=== PATIENT | female | born 1990 | race Caucasian/White ===

== ENCOUNTER 2023-09-24 07:37 | Outpatient (RCR) | payer BC, SELFPAY ==
[2023-09-26 05:07] LABS: Beta-2 Glycoprotein I Ab, IgA <9 (0-25); Beta-2 Glycoprotein I Ab, IgG <9 (0-20); Beta-2 Glycoprotein I Ab, IgM <9 (0-32)
== END 2023-09-29 23:59 | disposition home or self-care (01) ==
LOC: HEMC 07:37
PROVIDERS: PCP Family Medicine; Visit Provider Internal Medicine Hematology & Oncology
DX: D68.62 Lupus anticoagulant syndrome (principal); Z15.09 Genetic susceptibility to other malignant neoplasm
CPT/HCPCS: 36415; 85613; 85670; 85705; 85732; 86146; 86147; G0463

== ENCOUNTER 2023-10-15 07:45 | Outpatient (RCR) | payer BC, SELFPAY | END 2023-10-30 23:59 | disposition home or self-care (01) | LOC: HEMC 07:45 | PROVIDERS: PCP Family Medicine; Visit Provider Internal Medicine Hematology & Oncology | DX: D68.62 Lupus anticoagulant syndrome (principal); Z15.09 Genetic susceptibility to other malignant neoplasm; Z80.0 Family history of malignant neoplasm of digestive organs; Z80.42 Family history of malignant neoplasm of prostate | CPT/HCPCS: G0463 ==

== ENCOUNTER 2024-02-25 14:34 | Outpatient (OUT) | payer BC, SELFPAY ==
--- NOTE | 2024-02-25 14:36 | XR_ITS ---
The [address] [address] Patient Name: JAMES VILLEGAS MRN: [id number] date: 1990 Sex: F Assigned Patient Location: [facility] Current Patient Location: Accession/Order Number: [id number] Exam Date: 02/25/2024 14:38 Report Date: 02/29/2024 08:55 At the request of: MILTON BURT Procedure: XR foot RT min 3V PROCEDURE: XR foot RT min 3V HISTORY: Right Foot Pain ; pain since injury 10 years ago; first metatarsophalangeal joint pain COMPARISON: None. FINDINGS: BONES:Mild degenerative changes the first metatarsophalangeal joint. Tiny ossification medial to the first metatarsophalangeal joint favoring sequela of remote injury. SOFT TISSUES:No visible soft tissue swelling. EFFUSION:None visible. OTHER: Negative. XR/XR foot RT min 3V IMPRESSION: 1. No acute bone abnormality. 2. Mild degenerative changes of the first metatarsophalangeal joint. Electronically authenticated by: CHICHI FRANCO Date: 02/29/2024 08:55
--- OUTSIDE RECORDS SUMMARY | 2024-02-25 14:55 | XMS_ITS | CCD ---
Author Organization [facility] Care Team Providers Care Cafeteria Director Name Role Phone FELIPE LOWRY Admitting Unavailable FELIPE LOWRY Attending Unavailable FELIPE LOWRY Consulting Unavailable SEAN, DR ASHTON Primary Care Unavailable BARBARA, DR AREVALO Consulting Unavailable BARBARA, DR AREVALO Attending Unavailable BARBARA, DR AREVALO Admitting Unavailable WEST, DR IRINA Quesada Consulting Unavailable Unavailable Primary Care Provider UnavailIrina Jacobson Irina Jimenez DO Primary Care Provider Unavail able YAMILEX ACEVEDO Admitting Unavailable YAMILEX ACEVEDO Attending Unavailable IRINA JIMENEZ Primary Care Unavailable Unavailable Primary Care Provider UnavailFABI Pimentel Attending Unavailable Unavailable Primary Care Provider Unavailabl e Allergies Allergy Classification Reported Allergen(s) Allergy Type Date of Onset Reaction(s) Facility (1 source) Cephalexin Drug Allergy chest tightness/ possible? see OV note 10-13-22 Wow! Stuff Other Medications Current Medications Medication Drug Class(es) Dates Sig (Normalized) Sig (Original) Calcium (4 sources) Phosphate Binder, Calcium Calcium Active citalopram 40 mg oral tablet (15 sources) Serotonin Reuptake Inhibitor Start: 12-05-2023 citalopram (CELEXA) 40 mg tablet take 1 tablet daily 90 tablet 3 12/05/2023 Active Start: 10-16-2023 Citalopram Act quang MG PO October 16, 2023 12:00am Start: 09-11-2022 End: 12-05-2023 citalopram (CELEXA) 40 mg ta blet take 1 tablet daily 90 tablet 3 12/10/2022 12/05/2023 Discontinued Start: 03-20-2021 citalopram (CE ANDERSON) 40 mg tablet TAKE 1 TABLET DAILY 90 tablet 1 03/14/2022 Active Comment on above: TAKE 1 TABLET DAILY drospirenone / Ethinyl Estradiol (17 sources) Progestin, Estrogen Start: 11-28-2023 take 1 tablet by mouth once daily, then take 3 tablets by mouth once Drospirenone-Ethin yl Estradiol (CHER) 3-0.03 mg per tablet Take 1 tablet by mouth once daily. 84 tablet 3 11/28/2023 Active Start: 10-22-2023 End: 11-28-2023 CHER 3-0.03 mg per tablet t jessica 1 tablet daily 84 tablet 10/22/2023 11/28/2023 Discontinued Start: 10-22-2023 CHER 3-0.03 m g per tablet take 1 tablet daily 84 tablet 0 10/22/2023 Active Start: 09-21-2022 End: 10-22-2023 take 1 tablet by mouth once daily, then take 3 tablets by mouth once Drospirenone-Ethinyl Estradiol (CHER) 3-0.03 mg per tablet Take 1 tablet by mouth once daily. 84 tablet 3 09/21/2022 10/22/2023 Discontinued Start: 09-21-2022 take 1 tablet by maxi th once daily, then take 3 tablets by mouth once Drospirenone-Ethinyl Estradiol (CHER) 3-0.03 mg per tablet Take 1 tablet by mouth once daily. 84 tablet 3 09/21/2022 Active Start: 09-19-2022 End: 09-21-2022 Drospirenone-Ethinyl Estradi ol (CHER) 3-0.03 mg per tablet TAKE 1 TABLET DAILY 84 tablet 0 09/19/2022 09/21/2022 Discontinued Start: 06-27-2022 CHER 3-0.03 m g per tablet TAKE 1 TABLET DAILY 84 tablet 0 06/27/2022 Active Start: 07-26-2021 End: 06-27-2022 take 1 tablet by mouth once daily, then take 3 tablets by mouth once Drospirenone-Ethinyl Estradiol (CHER) 3-0.03 mg per tablet Take 1 tablet by mouth once daily. 84 tablet 3 07/26/2021 06/27/2022 Discontinued Start: 07-26-2021 take 1 tablet by maxi th once daily, then take 3 tablets by mouth once Drospirenone-Ethinyl Estradiol (CHER) 3-0.03 mg per tablet Take 1 tablet by mouth once daily. 84 tablet 3 07/26/2021 Active Start: 05-25-2021 End: 07-26-2021 CHER 3-0.03 mg per tablet T JESSICA 1 TABLET DAILY 84 tablet 0 05/25/2021 07/26/2021 Discontinued take 1 tablet by maxi th every twenty-four hours Cher 3-0.03 MG 1 tablet Orally Once a day Active Comment on above: Take 1 tablet by maxi th once daily. TAKE 1 TABLET DAILY predniSONE 20 mg oral tablet (3 sources) Start: 09-28-2021 predniSONE 20 MG take 3 tablets Orally x3 days, then 2 tabs x3 days then 1 tab a day x3 days then take 1/2 tablet x4 days with food or milk for 13 days Aug, Active Completed/Discontinued Medications Medication Drug Class(es) Dates Sig (Normalized) Sig (Original) docusate sodium 100 mg oral capsule (3 sources) End: 09-21-2022 take 1 capsule by mouth twice daily docusate sodium (COLACE) 100 mg capsule Take 100 mg by mouth twice daily. 0 09/21/2022 Discontinued Comment on above: Take 100 mg by mouth twice daily. fludrocortisone acetate 0.1 mg oral tablet (9 sources) Start: 10-16-2023 End: 10-16-2023 Fludrocortisone Discontinued MG PO October 16, 2023 12:00am October 16, 2023 3:29pm Start: 03-02-2021 End: 09-21-2022 take 1 tablet by mouth once daily fludrocortisone (FLORINEF) 0.1 mg tablet Take 1 tablet by mouth once daily. ANNUAL EXAM NEEDED FOR REFILLS 90 tablet 0 03/02/2021 09/21/2022 Discontinued take 1 tablet by maxi th three times weekly Fludrocortisone Acetate 0.1 MG 1 tablet Orally Three times a Week Active Comment on above: Take 1 tablet by maxi th once daily. ANNUAL EXAM NEEDED FOR REFILLS PNV no.95/ferrous fum/folic ac ( ORAL) (3 sources) End: 09-21-2022 take 1 tablet by mouth once daily before mealtime PNV no.95/ferrous fum/folic ac ( ORAL) Take 1 tablet by mouth once daily. 0 09/21/2022 Discontinued take 1 tablet by maxi th once daily before mealtime PNV no.95/ferrous fum/folic ac ( ORAL) Take 1 tablet by mouth once daily. 0 Active Comment on above: Take 1 tablet by maxi th once daily. Problems Active Problems Problem Classification Problem Date Documented Date Episodic/Chronic Anxiety disorders (6 sources) Anxiety; Translations: [Anxiety disorder, unspecified] Chronic Contraceptive and procreative management (2 sources) Oral contraception; Translations: [Encounter for surveillance of contraceptive pills] Episodic Disorders of lipid metabolism (6 sources) Hyperlipidemia; Translations: [Hyperlipidemia, unspecified] Onset: 03-15-2021 Resolved: 03-15-2021 Chronic Epilepsy; convulsions (13 sources) Epilepsy; Translations: [Epilepsy, unspecified, not intractable, without status epilepticus] Onset: 09-01-2018 07-26-2021 Chronic Menstrual disorders (7 sources) Irregular periods; Translations: [Irregular menstruation, unspecified] Onset: 02-13-2018 07-26-2021 Chronic Nonmalignant breast conditions (1 source) Mastodynia; Translations: [Mastodynia] Episodic Other conditions (3 sources) Cardiac arrest of ; Translations: [CARDIAC ARREST OF ] Onset: 07-29-2018 Episodic Other screening for suspected conditions (not mental disorders or infectious disease) (3 sources) Patient encounter status; Translations: [Encounter for other screening for malignant neoplasm of breast] Episodic Other skin disorders (2 sources) Follicular cyst of the skin and subcutaneous tissue, unspecified Onset: 03-15-2021 Resolved: 03-15-2021 Episodic Other skin disorders (2 sources) Sebaceous cyst of skin; Translations: [Sebaceous cyst] Onset: 01-03-2022 Episodic Other skin disorders (1 source) Sebaceous cyst; Translations: [Sebaceous cyst] Onset: 01-03-2022 Episodic Residual codes; unclassified (1 source) Reduced libido; Translations: [Decreased libido] Episodic Syncope (1 source) Syncope and collapse Episodic Thyroid disorders (12 sources) Hypothyroidism; Translations: [Hypothyroidism, unspecified] Onset: 09-01-2018 07-26-2021 Chronic Unclassified (3 sources) COUGH, UNSPECIFIED; Translations: [COUGH, UNSPECIFIED] Onset: 03-18-2021 Unclassified (1 source) CONTACT W/AND (SUSP) EXPOS COVID-19; Translations: [CONTACT W/AND (SUSP) EXPOS COVID-19] Onset: 03-18-2021 Past or Other Problems Problem Classification Problem Date Documented Date Episodic/Chronic Allergic reactions (2 sources) Unspecified contact dermatitis, unspecified cause Onset: 09-28-2021 Resolved: 10-09-2021 Episodic Other complications of (3 sources) History of pre-eclampsia; Translations: [Supervision of with other poor reproductive or obstetric history, unspecified trimester] Onset: 07-30-2019 Resolved: 03-22-2020 03-22-2020 Episodic Other nutritional; endocrine; and metabolic disorders (1 source) Abnormal weight loss Onset: 03-15-2021 Resolved: 03-15-2021 Episodic Residual codes; unclassified (3 sources) History of intrauterine ; Translations: [Personal history of other complications of , childbirth and the puerperium] Onset: 07-30-2019 Resolved: 03-22-2020 03-22-2020 Episodic Unclassified (1 source) COUGH, UNSPECIFIED; Translations: [COUGH, UNSPECIFIED] Onset: 03-14-2021 Unclassified (1 source) Cough R05.9 Onset: 03-15-2021 Resolved: 03-15-2021 Viral infection (3 sources) COVID-19; Translations: [Other specified viral infection] Onset: 10-30-2019 Resolved: 03-22-2020 03-22-2020 Episodic Results Test Name Value Interpretation Reference Range Facility Beta 2 glycoprotein 1 IgA Ab [Units/volume] in Serumon 09-24-2023 Beta 2 glycoprotein 1 IgA Qn (S) <9 0-25 [facility] Comment on above: Result Units: GPI Ig A unitsThe reference interval reflects a 3SD or 99th percentileinterval, which is thought to represent a potentiallyclinically significant result in accordance with theInternational Consensus Statement on the classificationcriteria for definitive antiphospholipid syndrome (APS). JThromb Haem 2006;4:295-306. Beta 2 glycoprotein 1 IgG Ab [Units/volume] in Serumon 09-24-2023 Beta 2 glycoprotein 1 IgG Qn (S) <9 0-20 [facility] Comment on above: Result Units: GPI Ig G unitsThe reference interval reflects a 3SD or 99th percentileinterval, which is thought to represent a potentiallyclinically significant result in accordance with theInternational Consensus Statement on the classificationcriteria for definitive antiphospholipid syndrome (APS). JThromb Haem 2006;4:295-306. Beta 2 glycoprotein 1 IgM Ab [Units/volume] in Serumon 09-24-2023 Beta 2 glycoprotein 1 IgM Qn (S) <9 0-32 [facility] Comment on above: Result Units: GPI Ig M unitsThe reference interval reflects a 3SD or 99th percentileinterval, which is thought to represent a potentiallyclinically significant result in accordance with theInternational Consensus Statement on the classificationcriteria for definitive antiphospholipid syndrome (APS). JThromb Haem 2006;4:295-306.Performed at: [email or web address] [id number] Director: Guera Patel MD, Phone: [phone] No Panel Informationon 09-23 Miscellaneous Test COMMENT . [facility] Comment on above: Test Ordered: [id number] Lupus Anticoagulant CompDilute Prothrombin Time(dPT) 32.0 sec Reference Range: 0.0-47.6dPT Confirm Ratio 1.21 Ratio BN Reference Range: 0.00-1.34Thrombin Time 20.0 sec BN Reference Range: 0.0-23.0PTT-LA 35.5 sec Reference Range: 0.0-43.5dRVVT 32.7 sec Reference Range: 0.0-47.0Lupus Reflex Interpretation Comment: Reference Range: .No lupus anticoagulant was detected.Performed at: [email or web address] [id number] Director: Guera Patel MD, Phone: [phone] at: [facility] [employer] [id number] Director: Corky Samuels PhD, Phone: [phone] CNOVon 09-21-2022 CNOV Office Visit ([facility] ) -- MARIOJOHANNY BOYCE ([id number]) 1990 F Date Time Provider Department 09/21/22 9:50 AM FABI ELAINE During your visit today, we recorded the following information about you: Blood pressure Weight Height Last Period 124/78 77.1 kg 1.702 m 08/25/22 Jennifer Hardy Ma 09/21/2022 9:55 AM Signed Commodity Manager offered: Patient declines. Fabi Elaine MD 09/21/2022 12:54 PM Signed Johanny is a 32 year old who presents for an annual gynecologic exam with complaints. Has had left breast pain for the past 2 months, worse just before her periods. No lump , no nipple discharge. Pain is constant , but worse the week prior to her periods. It is an achy pain all along the lateral wall of breast. No trauma. Menses: cycles every 28 days. Contraception: combined hormonal contraceptives No migraines with aura, HTN, blood clots, stroke hx. HPV vaccine: No Last Pap: 08/03/2019 normal HPV: 08/04/2019 negative History of abnormal pap: No Last mammogram: never Sexually active: Yes, but rarely Patient concerns for STD exposure: No. OB History T2 L2 SAB0 IAB0 Ectopic0 Multiple0 Live Births2 Risk Modeler History LMP: 08/25/2022, Having periods Age at Menarche: 13 Age at First : Age at Menopause: Risk Modeler History Comments: Sexual Activity: Yes; Male Contraception: Pill PAST MEDICAL HISTORY Diagnosis Date Neurocardiogenic syncope have seizures if syncopal Placental abruption depression Thyroid disease PAST SURGICAL HISTORY Procedure Laterality Date SECTION HX 2017,2018, 2019 TONSILLECTOMY AND ADENOIDECTOMY HX FAMILY HISTORY Problem Relation Age of Onset other (bi polar) Mother Colon Cancer Father Prostate Cancer Father Colon Cancer Paternal Grandfather SOCIAL HISTORY Social History Tobacco Use Smoking status: Never Smokeless tobacco: Never Vaping Use Vaping Use: Never used Substance Use Topics Alcohol use: Yes Comment: socially Drug use: Never REVIEW OF SYSTEMS Abdomen: No abdominal pain, nausea, vomiting, diarrhea, or constipation. No bloating, early satiety, indigestion, or increased flatulence. Bladder: No dysuria, gross hematuria, urinary frequency, urinary urgency, or incontinence. Breast: No breast lumps, nipple d/c, overlying skin changes, redness or skin retraction. Complaint of pain in left breast Allergies and current medication updated:Yes EXAM: BP 124/78 Ht 5' 7 (1.70m) Wt 170 lb (77.1kg) LMP 08/25/2022 BMI 26.62 kg/(m2). GENERAL: pleasant, female in no apparent distress HEENT: Normocephalic, atraumatic, mucus membranes moist, and no lesions NECK: Supple, full range of motion, no adenopathy, and thyroid normal DERMATOLOGY: Normal, without lesions, non-icteric, and non-hirsute BREAST: soft, non-tender, symmetric, no dominant mass, normal nipple-areolar complex, no lymphadenopathy, and no nipple discharge CHEST: Normal inspiratory effort ABDOMEN: soft, non-tender, and no masses PELVIC: external genitalia normal, normal Bartholin's glands, urethra, [place]'s glands, no vulvar lesions, no cervical lesions, good vaginal support, physiologic discharge present, normal appearing perineal body and perianal region BIMANUAL: uterus normal size, shape and consistency, no adnexal masses, and non-tender RECTOVAGINAL: deferred. NEURO: alert and oriented x3,exam grossly non-focal EXTREMITIES: normal ASSESSMENT/PLAN: 1) Health maintenance: Pap done with HPV. Nutrition, exercise and routine health maintenance exams reviewed. Calcium/Vitamin D supplementation information provided. 2) Contraception: combined hormonal contraceptives. Contraceptive options reviewed and information provided. 3) STD screening: Declined STD check. 4) Left breast pain- diagnostic imaging ordered 5) Follow up one year or sooner as needed Fabi Elaine MD Referring Provider: SELF [200] Allergies As of Date: 09/21/2022 (No Known Allergies) Date Reviewed: 09/21/2022 Reviewed by: Fabi Elaine MD - Fully Assessed Reason for Visit: Yearly Exam [187] Breast Problem [16] Cmt: Left breast pain on and off for a couple of months --last pap--07/2019--pap and hpv was neg Primary Visit Diagnosis:Encounter for gynecological examination (general) (routine) without abnormal findings [Z01.419] Other Visit Diagnoses:Screening for cervical cancer [Z12.4] Encounter for screening for human papillomavirus (HPV) [Z11.51] Encounter for surveillance of contraceptive pills [Z30.41] Breast pain, left [N64.4] Order(s):PAP TEST [[id number]] Order #: [id number]. #:[id number] RYAN DIAGNOSTIC LEFT [[id number]] Order #: [id number] FUTURE US BREAST LTD LEFT [[id number]] Order #: [id number] FUTURE Drospirenone-Ethinyl Estradiol (CHER) 3-0.03 mg per tabletTake 1 tablet by mouth once daily.Disp: 84 tabletRf (more content not included)... Normal [facility] HPV W/GENOTYPE THIN PREPon 0 09-21-2022 HPV 16 Ag Ql (Unsp spec) Negative Normal Negative for HPV DNA high risk type 16 by PCR [facility] Comment on above: Order Comment: Speci men Type: FLUID SPECIMEN Ordering Facility: [facility] Address: [address] [place] [address] Performed By: #### H PVHRT #### [facility] CLIA [id number] [address] [place] [address] [place] HPV 18 Ag Ql (Unsp spec) Negative Normal Negative for HPV DNA high risk type 18 by PCR [facility] Comment on above: Order Comment: Speci men Type: FLUID SPECIMEN Ordering Facility: [facility] Address: [address] [place] [address] Performed By: #### H PVHRT #### [facility] CLIA [id number] [address] [place] [address] [place] HPV 31+33+35+39+45+51+ 52+56+58+59+66+68 DNA CARIN+probe Ql (Cvx) Negative for HPV DNA high risk types: 31,33,35,39,45,51,52,56,58 ,59,66,68 by PCR. Normal Negative for HPV DNA high risk types: 31,33,35,39,4 5,51,52,56,58 ,59,66,68 by PCR. [facility] Comment on above: Order Comment: Speci men Type: FLUID SPECIMEN Ordering Facility: [facility] Address: [address] [place] [address] Performed By: #### H PVHRT #### [facility] CLIA [id number] [address] [place] [address] [place] PAP TESTon 09-21-2022 CASE REPORT Normal [facility] Comment on above: Order Comment: Speci men Type: FLUID SPECIMEN Ordering Facility: [facility] Address: [address] [place] [address] Result Comment: Gyne cologic Cytology Report Case: [id number] Authorizing Provider: Fabi Elaine MD Collected: 09/21/2022 10:33 AM Ordering Location: Obstetrics/Gynecology Received: 09/21/2022 01:09 PM First Screen: DELVIS Winn, ASCP Specimen: Pap Test, ThinPrep, Cervix Performed By: #### L [id number] #### [facility] CLIA [id number] [address] [place] [address] [place] CLINICAL HISTORY, CYTOLOGY, RESEARCH NURSE Routine Exam Normal [facility] Comment on above: Order Comment: Speci men Type: FLUID SPECIMEN Ordering Facility: [facility] Address: [address] [place] [address] Performed By: #### L [id number] #### [facility] CLIA [id number] [address] [place] [address] [place] CYTOLOGY INTERPRETATION PAP Normal [facility] Comment on above: Order Comment: Speci men Type: FLUID SPECIMEN Ordering Facility: [facility] Address: [address] [place] [address] Result Comment: Nega tive for Intraepithelial lesion or malignancy. Performed By: #### L [id number] #### [facility] CLIA [id number] [address] [id number] [place] FINAL DIAGNOSIS A - Cervix Normal [facility] Comment on above: Order Comment: Speci men Type: FLUID SPECIMEN Ordering Facility: [facility] Address: [address] Result Comment: Sati sfactory for interpretation Negative for Intraepithelial lesion or malignancy. Performed By: #### L [id number] #### [facility] CLIA [id number] [address] STATES OF [facility] Normal [facility] Comment on above: Order Comment: Speci men Type: FLUID SPECIMEN Ordering Facility: [facility] Address: [address] [address] Result Comment: Tech nical component, full stack software engineer screening performed at [facility], [facility] [place] [address] CLIA# [id number] Diagnostic interpretation performed at [facility], [address] [facility] [place] [address] CLIA# [id number] Disc Inspector: Alessio Vincent M.D. Performed By: #### L [id number] #### [facility] CLIA [id number] [address] [place], [place] [id number] [place] HPV REFLEX Auto HPV Normal [facility] Comment on above: Order Comment: Speci men Type: FLUID SPECIMEN Ordering Facility: [facility] Address: [address] Performed By: #### L [id number] #### [facility] CLIA [id number] [address] [place] [address] [place] LMP 08/25/2022 Normal [facility] Comment on above: Order Comment: Speci men Type: FLUID SPECIMEN Ordering Facility: [facility] Address: [address] Performed By: #### L [id number] #### [facility] CLIA [id number] [address] [place] [address] [place] PAP DISCLAIMER COMMENT The Pap Smear is a screening test for cervical cancer. False negative results occur with all screening tests, emphasizing the need for rescreening at recommended intervals, and clinical correlation. Normal [facility] Comment on above: Order Comment: Speci men Type: FLUID SPECIMEN Ordering Facility: [facility] Address: [address] [place] [address] Performed By: #### L [id number] #### [facility] CLIA [id number] [address] [place] [address] [place] PAP VICE PRESIDENT GLOBAL ADVERTISING SALES COMMENT This specimen has be en analyzed by the ThinPrep Imaging System, an automated imaging and review system, which assists the laboratory in evaluating cells on ThinPrep Pap tests. Following automated imaging, selected bermudez from every slide are reviewed by a full stack software engineer. Normal [facility] Comment on above: Order Comment: Speci men Type: FLUID SPECIMEN Ordering Facility: [facility] Address: [address] [place] [address] Performed By: #### L [id number] #### [facility] CLIA [id number] [address] [place] [address] OPERATIVE REPORTon 2 [place] [address] OPERATIVE REPORT PATIENT NAME: JOHANNY VILLEGAS : 1990 MED REC NO: [id number] ROOM: ACCOUNT NO: [id number] ADMIT DATE: 01/03/2022 PROVIDER: Yamilex Acevedo M.D. DATE OF PROCEDURE: 01/03/2022 PREOPERATIVE DIAGNOSIS: Right popliteal cyst. POSTOPERATIVE DIAGNOSIS: Right popliteal cyst. OPERATION PERFORMED: Excision of right popliteal cyst of 3.2 cm with complex closure. ATTENDING SURGEON: Yamilex Acevedo MD PUPIL PERSONNEL WORKER: Palmira Murphy CNP ANESTHESIA: General endotracheal anesthesia. HISTORY OF PRESENT ILLNESS: The patient is a 31-year-old female who presents with the cystic mass located in her right posterior leg just above her popliteal region. This mass has been getting larger causing pain and discomfort and she would like to have excision for diagnostic and therapeutic purposes. All the risks and benefits of the procedures were discussed with the patient. She decided to go ahead with the described procedure. Please note the operating room surgical technologist was utilized for all portions of the procedure including for retraction, extraction and reconstruction. No qualified residents or fellows were available for this surgery. OPERATIVE PROCEDURE: The patient was brought in the operative room, intubated by Anesthesia without any complication, log rolled to the prone decubitus position giving exposure to her right popliteal region. She was given IV antibiotics, then 1% Xylocaine with epinephrine was injected in the field block around this cystic lesion located in her right posterior leg. Then, the area was prepped and draped in the standard surgical fashion. Then, a 15-blade scalpel was used to create an elliptical incision around the punctum around this cystic mass. The total length of the excision measured 3.2 cm at length. Skin grabbed at the margin. Curved scissors were used to dissect the cyst from the surrounding soft tissue and was excised in a full thickness fashion that extended down through the Ava's fascia. Once this was excised, it was sent to the pathology for further study and measured 3.2 cm in length. Then, hemostasis was obtained with electrocautery. Medial and lateral subfascial advancement flaps were dissected with electrocautery. The wound irrigated with antibiotic irrigation and the wound was closed in a complex layered fashion of length 3.2 cm. This was done using 0 Vicryl suture in a simple fashion to reapproximate the Scarp's fashion followed by the deeper subcutaneous tissue dermis followed by 0 Vicryl and 2-0 Vicryl suture to reapproximate the superficial subcutaneous tissue and dermis followed by 3-0 Monocryl suture in running subcuticular fashion to reapproximate the skin. Benzoin and Steri-Strips were applied to the incisions. Sterile dressings were applied including an ELIDIA wrap. The patient was then log rolled in supine position, extubated by Anesthesia without any complication and then transferred in stable condition to the recovery room. There were no complications. Sponge, needle, and instrument counts were correct at the end of the case. ESTIMATED BLOOD LOSS: Less than 1 mL. IV FLUIDS: See anesthesia notes. SPECIMEN: Right popliteal cyst. COMPLICATIONS: There were no complications. YAMILEX ACEVEDO M.D. [id number] Doc#: [id number] CC: Normal [facility] POC UR-QUALon Beta HCG ( test) Ql (U) Negative Negative [facility] Phone: Lot Number [id number] [facility] Phone: Negative QC Pass/Fail Pass [facility] Phone: Positive QC Pass/Fail Pass [facility] Phone: [facility] Phone: CBC With Platelet and Differ entialon 12-29-2021 Basophils (Bld) [#/Vol] 0.0 10*3/uL Normal 0.0-0.2 [facility] Comment on above: Performed By: #### C BCWD #### [facility] [address] [place] [address] Basophils/100 WBC (Bld) 0.5 % Normal [facility] Comment on above: Performed By: #### C BCWD #### [facility] [address] [place] [address] Eosinophils (Bld) [#/Vol] 0.1 10*3/uL Normal 0.0-0.7 [facility] Comment on above: Performed By: #### C BCWD #### [facility] [address] [place] [address] Eosinophils/100 WBC (Bld) 1.1 % Normal [facility] Comment on above: Performed By: #### C BCWD #### [facility] [address] [place] [address] Erythrocyte distribution width (RBC) [Ratio] 12.7 % Normal 11.5-14.5 [facility] Comment on above: Performed By: #### C BCWD #### [facility] [address] [place] [address] Hematocrit (Bld) [Volume fraction] 41.0 % Normal 37.0-47.0 [facility] Comment on above: Performed By: #### C BCWD #### [facility] [address] [place] [address] Hemoglobin (Bld) [Mass/Vol] 13.7 g/dL Normal 12.0-16.0 [facility] Comment on above: Performed By: #### C BCWD #### [facility] [address] [place] [address] Lymphocytes (Bld) [#/Vol] 1.6 10*3/uL Normal 1.0-4.8 [facility] Comment on above: Performed By: #### C BCWD #### [facility] [address] [place] [address] Lymphocytes/100 WBC (Bld) 33.0 % Normal [facility] Comment on above: Performed By: #### C BCWD #### [facility] [address] [place] [address] MCH (RBC) [Entitic mass] 31.6 pg Critically high 27.0-31.3 [facility] Comment on above: Performed By: #### C BCWD #### [facility] [address] [place] [address] MCHC 33.3 % Normal 33.0-37.0 [facility] Comment on above: Performed By: #### C BCWD #### [facility] [address] [place] [address] MCV (RBC) [Entitic vol] 94.9 fL Normal 82.0-100.0 [facility] Comment on above: Performed By: #### C BCWD #### [facility] [address] [place] [address] Monocytes (Bld) [#/Vol] 0.4 10*3/uL Normal 0.2-0.8 [facility] Comment on above: Performed By: #### C BCWD #### [facility] [address] [place] [address] Monocytes/100 WBC (Bld) 8.5 % Normal [facility] Comment on above: Performed By: #### C BCWD #### [facility] [address] [place] [address] Neutrophils (Bld) [#/Vol] 2.7 10*3/uL Normal 1.4-6.5 [facility] Comment on above: Performed By: #### C BCWD #### [facility] [address] [place] [address] Neutrophils/100 WBC (Bld) 56.9 % Normal [facility] Comment on above: Performed By: #### C BCWD #### [facility] [address] [place] [address] Platelets (Bld) [#/Vol] 244 10*3/uL Normal 130-400 [facility] Comment on above: Performed By: #### C BCWD #### [facility] [address] [place] [address] RBC (Bld) [#/Vol] 4.32 10*6/uL Normal 4.20-5.40 [facility] Comment on above: Performed By: #### C BCWD #### [facility] [address] [place] [address] WBC (Bld) [#/Vol] 4.7 10*3/uL Low 4.8-10.8 [facility] Comment on above: Performed By: #### C BCWD #### [facility] [address] [place] [address] Covid-19 PCR (CVDTB)on 03-01 SARS-CoV-2 (COVID-19) RNA CARIN+probe Ql (Unsp spec) Not detected Normal NOT DETECTED [facility] Comment on above: Result Comment: This test is not yet approved or cleared by the [place] FDA. When there are no FDA-approved or cleared tests available, and other criteria are met, FDA can make tests available under an emergency access mechanism called an Emergency Use Authorization (EUA). The EUA for this test is supported by the Mixer [employer] Feeder of Health and Human Service's (HHS's) declaration that circumstances exist to justify the emergency use of in vitro diagnostics for the detection and/or diagnosis of the virus that causes COVID-19. This EUA will remain in effect (meaning this test can be used) for the duration of the COVID-19 declaration justifying emergency of IVDs, unless it is terminated or revoked by FDA (after which the test may no longer be used). When diagnostic testing is negative, the possibility of a false negative should be considered in the context of a patient's recent exposures and the presence of clinical signs and symptoms consistent with SARS-CoV-2. Performed By: #### C VDTBH #### [facility] [address] [place] [address] Dr. Galen Kauffman XR CHEST 2 Von 03-14-2021 XR CHEST 2 V EXAMINATION: XR CHES T 2 V HISTORY: Cough COMPARISON: No relevant comparison available. TECHNIQUE: PA and lateral FINDINGS: LUNGS: No significant pulmonary parenchymal abnormalities. VASCULATURE: No increased pulmonary vasculature. PLEURA: No pneumothorax, effusion, or pleural thickening. CARDIAC: No cardiomegaly or cardiac silhouette abnormality. MEDIASTINUM: No visible mass or adenopathy. BONES: No fracture or visible bone lesion. OTHER: Negative. IMPRESSION: No acute disease. Electronically authenticated by: IRINA MAXWELL Date: 2021-03-14 12:02 Normal [facility] Complete Blood Count Auto Di ffon 02-04-2021 Basophils (Bld) [#/Vol] 0.0 10*3/uL Normal 0.0-0.2 [facility] Comment on above: Result Comment: PERF ORMED BY: [facility] [address] [place] [address] PATHOLOGIST PHOTOGRAPHY TEACHER KIMMIE SANDOVAL M.D. Performed By: #### U A, TSH3, CBC, CMP, LIPID #### [address] Basophils/100 WBC (Bld) 0.5 % Normal . [facility] Comment on above: Performed By: #### U A, TSH3, CBC, CMP, LIPID #### [address] Eosinophils (Bld) [#/Vol] 0.1 10*3/uL Normal 0.0-0.45 [facility] Comment on above: Performed By: #### U A, TSH3, CBC, CMP, LIPID #### [address] Eosinophils/100 WBC (Bld) 1.7 % Normal . [facility] Comment on above: Performed By: #### U A, TSH3, CBC, CMP, LIPID #### [address] Erythrocyte distribution width (RBC) [Ratio] 12.8 % Normal 11.9-15.3 [facility] Comment on above: Performed By: #### U A, TSH3, CBC, CMP, LIPID #### [address] Hematocrit (Bld) [Volume fraction] 40.1 % Normal 34.0-46.4 [facility] Comment on above: Performed By: #### U A, TSH3, CBC, CMP, LIPID #### [address] Hemoglobin (Bld) [Mass/Vol] 13.4 g/dL Normal 11.8-15.4 [facility] Comment on above: Performed By: #### U A, TSH3, CBC, CMP, LIPID #### [address] Lymphocytes (Bld) [#/Vol] 1.2 10*3/uL Normal 1.00-4.8 [facility] Comment on above: Performed By: #### U A, TSH3, CBC, CMP, LIPID #### [place] [address] [place] Lymphocytes/100 WBC (Bld) 25.0 % Normal . [facility] Comment on above: Performed By: #### U A, TSH3, CBC, CMP, LIPID #### [facility] [address] MCH (RBC) [Entitic mass] 31.5 pg Normal 24.7-34.3 [facility] Comment on above: Performed By: #### U A, TSH3, CBC, CMP, LIPID #### [address] MCV (RBC) [Entitic vol] 94.6 fL Normal 80-100 [facility] Comment on above: Performed By: #### U A, TSH3, CBC, CMP, LIPID #### [address] Mean Corpuscular HGB Conc 33.4 g/dL Normal 32.0-35.0 [facility] Comment on above: Performed By: #### U A, TSH3, CBC, CMP, LIPID #### [address] Monocytes (Bld) [#/Vol] 0.4 10*3/uL Normal 0.0-0.8 [facility] Comment on above: Performed By: #### U A, TSH3, CBC, CMP, LIPID #### [place] [address] [place] Monocytes/100 WBC (Bld) 8.8 % Normal . [facility] Comment on above: Performed By: #### U A, TSH3, CBC, CMP, LIPID #### [facility] [address] [place] [address] [place] Neutrophils (Bld) [#/Vol] 3.1 10*3/uL Normal 1.8-7.7 [facility] Comment on above: Performed By: #### U A, TSH3, CBC, CMP, LIPID #### [place] [address] [place] Neutrophils/100 WBC (Bld) 64.0 % Normal . [facility] Comment on above: Performed By: #### U A, TSH3, CBC, CMP, LIPID #### [address] Nucleated RBC/100 WBC (Bld) [Ratio] 0.1 % Normal 0-0.5 [facility] Comment on above: Performed By: #### U A, TSH3, CBC, CMP, LIPID #### [address] Platelet mean volume (Bld) [Entitic vol] 9.6 fL Normal 6.3-10.7 [facility] Comment on above: Performed By: #### U A, TSH3, CBC, CMP, LIPID #### [address] Platelets (Bld) [#/Vol] 226 10*3/uL Normal 150-450 [facility] Comment on above: Performed By: #### U A, TSH3, CBC, CMP, LIPID #### [address] RBC (Bld) [#/Vol] 4.24 10*6/uL Normal 3.60-5.00 [facility] Comment on above: Performed By: #### U A, TSH3, CBC, CMP, LIPID #### [address] WBC (Bld) [#/Vol] 4.8 10*3/uL Normal 4.5-11.0 [facility] Comment on above: Performed By: #### U A, TSH3, CBC, CMP, LIPID #### [address] Comprehensive Metabolic Pane kendall 02-04-2021 Albumin [Mass/Vol] 3.8 g/dL Normal 3.2-5.5 [facility] Comment on above: Performed By: #### U A, TSH3, CBC, CMP, LIPID #### [address] Albumin/Globulin [Mass ratio] 1.3 {ratio} Normal [facility] Comment on above: Performed By: #### U A, TSH3, CBC, CMP, LIPID #### [address] ALP [Catalytic activity/Vol] 54 U/L Normal 32-92 [facility] Comment on above: Performed By: #### U A, TSH3, CBC, CMP, LIPID #### [address] ALT [Catalytic activity/Vol] 23 U/L Normal 10-60 [facility] Comment on above: Performed By: #### U A, TSH3, CBC, CMP, LIPID #### [address] AST [Catalytic activity/Vol] 19 U/L Normal 10-42 [facility] Comment on above: Performed By: #### U A, TSH3, CBC, CMP, LIPID #### [address] Bilirubin [Mass/Vol] 0.9 mg/dL Normal 0.3-1.2 [facility] Comment on above: Performed By: #### U A, TSH3, CBC, CMP, LIPID #### [address] Calcium [Mass/Vol] 9.0 mg/dL Normal 8.2-10.2 [facility] Comment on above: Performed By: #### U A, TSH3, CBC, CMP, LIPID #### [place] [address] [place] Chloride [Moles/Vol] 104 mmol/L Normal 95-114 [facility] Comment on above: Performed By: #### U A, TSH3, CBC, CMP, LIPID #### [place] [address] [place] CO2 [Moles/Vol] 24.5 mmol/L Normal 22.0-30.0 [facility] Comment on above: Performed By: #### U A, TSH3, CBC, CMP, LIPID #### [address] [place] [address] [place] Creatinine [Mass/Vol] 0.90 mg/dL Normal 0.44-1.03 [facility] Comment on above: Performed By: #### U A, TSH3, CBC, CMP, LIPID #### [address] Estimated GFR ( Frieda > 60 Normal [facility] Comment on above: Result Comment: GFR estimated reference range: According to KDOQI guidelines, <60 ml/min/1.73m2 is sufficient to diagnose a patient with chronic kidney disease. Performed By: #### U A, TSH3, CBC, CMP, LIPID #### [address] Estimated GFR (Non- Am > 60 Normal [facility] Comment on above: Performed By: #### U A, TSH3, CBC, CMP, LIPID #### [address] Globulin (S) [Mass/Vol] 2.9 g/dL Normal [facility] Comment on above: Performed By: #### U A, TSH3, CBC, CMP, LIPID #### [address] Glucose [Mass/Vol] 94 mg/dL Normal 70-100 [facility] Comment on above: Result Comment: [place] Glucose Reference Range is dependent on time and content of last meal. Glucose of more than 200 mg/dL in a nonstressed, ambulatory subject supports the diagnosis of Diabetes Mellitus. ADA recommended reference range Performed By: #### U A, TSH3, CBC, CMP, LIPID #### [address] Potassium [Moles/Vol] 4.1 mmol/L Normal 3.5-5.1 [facility] Comment on above: Performed By: #### U A, TSH3, CBC, CMP, LIPID #### [address] Protein [Mass/Vol] 6.7 g/dL Normal 6.1-7.9 [facility] Comment on above: Performed By: #### U A, TSH3, CBC, CMP, LIPID #### [facility] [address] Sodium [Moles/Vol] 137 mmol/L Normal 136-146 [facility] Comment on above: Performed By: #### U A, TSH3, CBC, CMP, LIPID #### [facility] [address] Urea nitrogen [Mass/Vol] 14 mg/dL Normal 9-23 [facility] Comment on above: Performed By: #### U A, TSH3, CBC, CMP, LIPID #### [facility] [address] Lipid Panelon 02-04-2021 Cholesterol [Mass/Vol] 229 mg/dL High 140-200 [facility] Comment on above: Result Comment: Chol less than 200 mg/dl low risk Chol 201-239 mg/dl borderline risk Chol 240 mg/dl and greater high risk Performed By: #### U A, TSH3, CBC, CMP, LIPID #### [facility] [address] Cholesterol in HDL [Mass/Vol] 69 mg/dL Normal 35-85 [facility] Comment on above: Result Comment: HDL CHOL ATP-III CLASSIFICATION Cardiovascular Risk HDL > or equal to 60 mg/dL LOW HDL < 40 mg/dL HIGH Performed By: #### U A, TSH3, CBC, CMP, LIPID #### [facility] [address] Cholesterol.total/ Cholesterol in HDL [Mass ratio] 3.3 {ratio} Normal <5.0 [facility] Comment on above: Performed By: #### U A, TSH3, CBC, CMP, LIPID #### [facility] [address] LDL Cholesterol,Calcul ated 131 mg/dL High 0-100 [facility] Comment on above: Result Comment: LDL ATP III CLASSIFICATION LDL less than 100 mg/dL Optimal LDL 100-129 mg/dL Near or above optimal LDL 130-159 mg/dL Borderline high LDL 160-189 mg/dL High LDL greater than 189 mg/dL Very high Performed By: #### U A, TSH3, CBC, CMP, LIPID #### [facility] [address] Triglyceride w/Reflex 145 mg/dL Normal 35-149 [facility] Comment on above: Result Comment: TRIG ATP III CLASSIFICATION TRIG less than 150 mg/dL Normal TRIG 150-199 mg/dL Borderline high TRIG 200-500 mg/dL High TRIG greater than 500 mg/dL Very high Standard traceable to the Center for Disease Conrtrol and Prevention (CDC) test method. Performed By: #### U A, TSH3, CBC, CMP, LIPID #### [facility] [address] VLDL CHOLESTEROL 29 mg/dL Normal [facility] Comment on above: Performed By: #### U A, TSH3, CBC, CMP, LIPID #### [facility] [address] Thyroid Stimulating Hormoneo n 02-04-2021 TSH Qn 2.37 m[IU]/L Normal 0.45-5.33 [facility] Comment on above: Result Comment: PERF ORMED BY: [place] [address] PATHOLOGIST PHOTOGRAPHY TEACHER KIMMIE SANDOVAL M.D. Performed By: #### U A, TSH3, CBC, CMP, LIPID #### [facility] [address] Urinalysison 02-04-2021 Appearance (U) Clear Normal Clear [facility] Comment on above: Order Comment: Name Collection Type:: Clean-Voided Midstream Performed By: #### U A, TSH3, CBC, CMP, LIPID #### [facility] [address] Bilirubin,Urine Negative Normal Negative [facility] Comment on above: Order Comment: Name Collection Type:: Clean-Voided Midstream Performed By: #### U A, TSH3, CBC, CMP, LIPID #### [facility] [address] [place] [address] [place] Color (U) Yellow Normal Yellow [facility] Comment on above: Order Comment: Name Collection Type:: Clean-Voided Midstream Performed By: #### U A, TSH3, CBC, CMP, LIPID #### [facility] [address] Glucose Ql (U) Normal Normal Normal [facility] Comment on above: Order Comment: Name Collection Type:: Clean-Voided Midstream Performed By: #### U A, TSH3, CBC, CMP, LIPID #### [facility] [address] Ketones Ql (U) Negative Normal Negative [facility] Comment on above: Order Comment: Name Collection Type:: Clean-Voided Midstream Performed By: #### U A, TSH3, CBC, CMP, LIPID #### [address] Leukocyte esterase Test strip Ql (U) Negative Normal Negative [facility] Comment on above: Order Comment: Name Collection Type:: Clean-Voided Midstream Performed By: #### U A, TSH3, CBC, CMP, LIPID #### [facility] [address] [place] [address] [place] Nitrite,Urine Negative Normal Negative [facility] Comment on above: Order Comment: Name Collection Type:: Clean-Voided Midstream Performed By: #### U A, TSH3, CBC, CMP, LIPID #### [facility] [address] [place] [address] [place] Occult Blood,Urine Negative Normal Negative [facility] Comment on above: Order Comment: Name Collection Type:: Clean-Voided Midstream Result Comment: PERF ORMED BY: [place] [address] PATHOLOGIST PHOTOGRAPHY TEACHER KIMMIE SANDOVAL M.D. Performed By: #### U A, TSH3, CBC, CMP, LIPID #### [facility] [address] [place] [address] [place] pH (U) 6.0 [pH] Normal 5.0-9.0 [facility] Comment on above: Order Comment: Name Collection Type:: Clean-Voided Midstream Performed By: #### U A, TSH3, CBC, CMP, LIPID #### [facility] [address] Protein,Urine Negative Normal Negative [facility] Comment on above: Order Comment: Name Collection Type:: Clean-Voided Midstream Performed By: #### U A, TSH3, CBC, CMP, LIPID #### [facility] [address] Specificy [place],Urine 1.026 Normal 1.001-1.030 [facility] Comment on above: Order Comment: Name Collection Type:: Clean-Voided Midstream Performed By: #### U A, TSH3, CBC, CMP, LIPID #### [facility] [address] Urobilinogen,Urine Normal Normal Normal [facility] Comment on above: Order Comment: Name Collection Type:: Clean-Voided Midstream Performed By: #### U A, TSH3, CBC, CMP, LIPID #### [address] Brandan 02-15-2020 CNPN Telephone (LACFV) -- JOHANNY VILLEGAS ([id number]) 1990 F Date Time Provider Department 02/15/20 KIRAN ZAMUDIO) GONZALO During your visit today, we recorded the following information about you: Allergies As of Date: 02/15/2020 (No Known Allergies) Date Reviewed: 02/12/2020 Reviewed by: Nava (Darline) DARLINE Chavez - Fully Assessed Reason for Visit: Breast Feeding [1541] Cmt: follow-up call Prescriptions as of 02/15/2020 Sig: ACETAMINOPHEN 500 MG TABLET Take 2 tablets by mouth every* DOCUSATE SODIUM 100 MG CAPSULE Take 2 capsules by mouth ortiz* IBUPROFEN 600 MG TABLET Take 1 tablet by mouth every * CITALOPRAM 40 MG TABLET Take 1 tablet by mouth once d* FLUDROCORTISONE 0.1 MG TABLET Take 1 tablet by mouth once d* BREAST PUMP Use as directed ORAL Take 1 tablet by mouth once d* Problem List As Of Date 02/15/2020 Noted Resolved Previous delivery affecting *07/30/2019 More... Hx of preeclampsia, prior , currently *07/30/2019 More... History of IUFD [Z87.59] 07/30/2019 More... Lab test positive for detection of COVID-19 vir*10/30/2019 More... Encounter Status:Closed by KIRAN ZAMUDIO on 02/15/20 [facility] ANES POSTPROC EVALon 020 ANES POSTPROC EVAL HNO ID: [id number] Author: Jose Montoya I Service: ? Author Type: Anesthesiologist Type: Anesthesia Postprocedure Evaluation Filed: 02/11/2020 9:38 AM Note Text: POST ANESTHESIA EVALUATION NOTE : 1990 Procedure Summary Date: 02/10/20 Room / Location: [place] [address] / OB Anesthesia Start: 955 Anesthesia Stop: 1120 Procedure: SECTION REPEAT (N/A Uterus) Diagnosis: Previous delivery affecting (SAME) Surgeons: Ayana Ly Responsible Provider: Jose Montoya I Anesthesia Type: spinal ASA Status: 2 Anesthesia Type: spinal Last vitals Vitals Value Taken Time BP 130/82 02/11/20 0821 Temp 36.8 ?C (98.2 ?F) 02/11/20 0821 Pulse 74 02/11/20 0821 Resp 18 02/11/20 0821 SpO2 100 % 02/11/20 0821 Sumser, Girl Joahnny [[id number]] Baby Delivery: 02/10/2020 1024 Post Anesthesia Patient Status Patient Evaluation: floor. Anticipated Disposition: inpatient floor planned admission. Neurological Status: aware and responsive. Pulmonary Status: breathing comfortably on room air Airway Control: returned to baseline unsupported. Cardiovascular Status: stable. Pain Management: clinically adequate Postoperative Hydration: acceptable. Intraoperative Events: no significant anesthesia events Post Operative Nausea/Vomiting Status: no significant post operative nausea or vomiting Anesthetic Observations: no significant anesthetic observations Recommendation: continue current plan of care. SIGNATURE: Jose Montoya MD PATIENT NAME: Johanny Villegas DATE: February 11, 2020 TIME: 9:37 AM CSN: [id number] [facility] CASE MGT INIT Arturo 2019 CASE MGT INIT POONAM HNO ID: [id number] Author: [place] Service: ? Author Type: Icicle Machine Operator Type: Care Mgt Initial Assessment Filed: 02/11/2020 2:52 PM Note Text: CARE MANAGEMENT: ASSESSMENT AND DISCHARGE PLAN SERVICE DATE: February 11, 2020 SERVICE TIME: 2:43 PM PRIMARY CARE PHYSICIAN: No primary care provider on file. 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 Last discharge within 30 days: No Advance Directive: Health LiteracyHow often do you need to have someone help you when you read instructions, pamphlets, or other written material from your doctor or pharmacy? : 1 - Never How confident are you filling out medical forms by yourself?: 1 - Extremely If Patient scores > 3 on either question, the following interventions were put into place:: Patient did not score > 3 on either question. Baseline Mental Status Prior to this Illness what was the patient's Baseline Mental Status?: Alert AND Oriented Prior to this illness, has anyone described the patient having any of the following behaviors?: Not Applicable Relationship of the informant to the patient:: Self Functional Status: Independent Does Patient Currently Receive Any Community Services or Home Care?: Counseling Equipment Prior to Admission: None Has the Patient Been in a Assisted Facility in the Past 30 days?: No SOCIAL: Living Arrangements: Home Lives With: Spouse;Son Financial Resources: Employed Primary Contact: Extended Emergency Contact Information Primary Emergency Contact: Ar Villegas Mobile Relation: Spouse Supportive Patient Contact:: Yes Contact Resources: Family Family Name/Phone: : Ar Elisa Social Needs Food insecurity Worry: Never true Inability: Never true Resources Needed: No Social Needs Financial resource strain: Not hard at all Social Needs Transportation needs Medical: No Non-medical: No Caregiver AssessmentCaregiver is ready, willing and able to meet the patient's needs as recommended by the inter-professional team:: No Caregiver needed Does the patient have an acute stroke diagnosis, or has the patient had a stroke during this admission?: No Patient's transition needs and plan for meeting these needs: Pt to d/c home Patient's perception of need for this admission: to deliver baby Medication Adherance I am convinced of the importance of my prescription medication: 0 - Agree Completely I worry that my prescription medication will do more harm than good to me : 0 - Disagree Completely I feel financially burdened by my [id number] expenses for my prescription medication:: 0 - Disagree Completely Risk Score: 0 Patient is categorized as: Low risk < 2 Are you interested in bedside delivery of your medications? No Is Patient Psychosocially Complex?: Yes, refer to Social Work ASSESSMENT AND PLAN: Medical Needs: Medical Needs: None Psychosocial Needs: Psychosocial Needs: Mental Health Diagnosis(h/o IUFD at 38.5 weeks in 2018) Mental Health Information: h/o PPD Upon discharge, where will your child sleep? Crib FREEDOM OF CHOICE EXPLAINED: [place] of Choice Given: No Reason Not Given: No placements necessary POTENTIAL TRANSITION PLANS Home;Other: See Comment(PPD: Pt will continue Celexa 40 mg, will monitor for breakthrough s/s, will continue to follow with her current behavioral health provider as well) Pt is a 29 year old s/p delivery of baby karli, Pia, on 02/10/20. SW consult ordered d/t Pt h/o PPD. SW met with Pt and /FOB, Will, at the bedside. Explained SW role, Pt agreeable to assessment. Pt provided verbal consent for her guest(s) to be present during the assessment. Pt presented with a full affect, was friendly and open with SW. Baby asleep in bassinet next to Pt's bed. Pt reported the following: She lives in [place] with FOB and their 3 year old son, Rivas. Pt and FOB have been in a relationship since [place] but have been for 5 years. Pt and FOB did experience an IUFD of baby girl, Luz, at 38 weeks EGA in June 2018. Pt stated she is doing okay so far, but did experience anxiety and grief through out this . She is linked with a therapist, Dr. Jolly, whom she sees monthly to every two weeks. 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 Pt informed she feels her mental health needs are met at this time. She plans to meet with her therapist next week and will continue with her post . Pt expressed that she has been experiencing a lot of emotions around having another baby, she feels having this baby will help her to let go and move forward following her loss. SW provided empathic listening and encouragement regarding Pt's willingness to accept help. PPD resource list provided including information on PPD support groups. Pt reports no financial needs at this time, has all provisions for baby including a crib for safe sleep. She will enroll baby in listed private insurance and will take baby to [facility] (Dr. Sinha) for pediatric follow up. Pt has a strong support system including friends and family. She reports no additional needs at this time. SW will remain available if additional needs arise. SIGNATURE: JENNY Jeronimo PATIENT NAME: Johanny Villegas DATE: February 11, 2020 TIME: 2:43 PM PAGER/CONTACT #: [phone] Normal [facility] CBCon 02-11-2020 Absolute nRBC <0.01 Normal <0.01 [facility] Comment on above: Performed By: #### C BC ####[place] [id number] [place] [phone] Erythrocyte distribution width (RBC) [Ratio] 13.2 % Normal 11.5-15.0 [facility] Comment on above: Performed By: #### C BC ####[place] [id number] [place], [place] [phone] Hematocrit (Bld) [Volume fraction] 34.1 % Low 36.0-46.0 [facility] Comment on above: Performed By: #### C BC ####[facility] [place], [place] [phone] Hemoglobin (Bld) [Mass/Vol] 11.4 g/dL Low 11.5-15.5 [facility] Comment on above: Performed By: #### C BC ####[place] [phone] MCH (RBC) [Entitic mass] 33.7 pG Normal 26.0-34.0 [facility] Comment on above: Performed By: #### C BC ####[place] [phone] MCHC (RBC) [Mass/Vol] 33.4 g/dL Normal 30.5-36.0 [facility] Comment on above: Performed By: #### C BC ####[place] [phone] MCV (RBC) [Entitic vol] 100.9 fL High 80.0-100.0 [facility] Comment on above: Performed By: #### C BC ####[place] [phone] Platelet mean volume (Bld) [Entitic vol] 10.8 fL Normal 9.0-12.7 [facility] Comment on above: Performed By: #### C BC ####[place] [phone] Platelets (Bld) [#/Vol] 177 10*3/uL Normal 150-400 [facility] Comment on above: Performed By: #### C BC ####[place] [phone] RBC (Bld) [#/Vol] 3.38 10*6/uL Low 3.90-5.20 [facility] Comment on above: Performed By: #### C BC ####[place] [phone] WBC (Bld) [#/Vol] 8.95 10*3/uL Normal 3.70-11.00 [facility] Comment on above: Performed By: #### C BC ####[address] [phone] PLAN OF CAREon 02-11-2020 PLAN OF CARE HNO ID: [id number] Author: Stephanie Lopez (Gift Officer) Service: ? Author Type: ? Type: Plan of Care Filed: 02/11/2020 6:03 PM Note Text: PHARMACY BEDSIDE DELIVERY SERVICE Patient Name: Johanny Villegas The marked outpatient medications were Filled at: [place] and delivered to the patient's bedside to [facility] Medication List START taking these medications acetaminophen 500 mg tabletX Commonly known as: TYLENOL Take 2 tablets by mouth every 6 hours as needed. DOK 100 mg capsuleX Generic drug: docusate sodium Take 2 capsules by mouth daily at bedtime. ibuprofen 600 mg tabletX Commonly known as: MOTRIN Take 1 tablet by mouth every 6 hours as needed. CONTINUE taking these medications Breast Pump Use as directed citalopram 40 mg tablet Commonly known as: CeleXA Take 1 tablet by mouth once daily. fludrocortisone 0.1 mg tablet Commonly known as: FLORINEF Take 1 tablet by mouth once daily. ORAL You might also be taking other medications not listed above. If you have questions about any of your other medications, talk to the person who prescribed them or your Primary Care Provider. STOP taking these medications ECOTRIN LOW STRENGTH 81 mg EC tablet Generic drug: aspirin, enteric coated Stephanie Lopez ([facility]) PAGER: [phone] February 11, 2020 6:02 PM [facility] PLAN OF CARE HNO ID: [id number] Author: Stephanie [facility]) Service: ? Author Type: ? Type: Plan of Care Filed: 02/11/2020 6:02 PM Note Text: Pharmacy Discharge Medication Service: This patient has elected to receive their discharge prescriptions through the [facility] Bedside Prescription Delivery program. The prescriptions are currently being processed. A follow-up note will be entered once the prescriptions have been filled and delivered to the patient. Please contact me with any questions or updates to the patient's discharge medications. Stephanie Lopez ([facility]) DCT Contact Info: [id number] [facility] OF CARE HNO ID: [id number] Author: Stephanie [facility]) Service: ? Author Type: ? Type: Plan of Care Filed: 02/11/2020 6:02 PM Note Text: REAL ESTATE LISTING CONSULTANT BEDSIDE DELIVERY SURVEY 1. Patient to use [facility] Bedside Delivery - YES Insurance Information as follows: 2. Insurance card on file - YES 3. Credit card for payment - N/A [facility] PROGRESSon 02-11-2020 PROGRESS HNO ID: [id number] Author: Sara Kearns ([facility] Service: Obstetrics Author Type: Nurse Practitioner Type: Progress Notes Filed: 02/11/2020 9:32 AM Note Text: OBSTETRICS PROGRESS NOTE SERVICE DATE: February 11, 2020 SERVICE TIME: 8:37 AM ASSESSMENT: 29 year old female who is Postoperative Day #1 status post , Low Transverse delivery with female . repeat Hx of pre eclampsia Hx of IUFD hgb 12.2>-11.4 Rh pos/ RI Desires discharge on PO2 SW for support and resources PLAN: Routine care. Routine postop care. Encourage ambulation and IS usage. . Anticipate discharge tomorrow. Discharge instructions given to patient regarding pelvic rest, bathing, stairs, walking, lifting, driving, and follow-up. Patient expresses understanding. Plan of care discussed with: Provider, RN, Patient. SUBJECTIVE: Patient has no current complaints. Tolerating PO intake. Urinating without difficulty. Passing flatus. Pain well controlled with current regimen. Lochia decreasing. Ambulating without difficulty. OBJECTIVE: PHYSICAL EXAM: Heart: RR, S1, S2 Lungs: clear to auscultation Abdomen: Soft Bowel sounds present Fundus firm below umbilicus Non-distended Incision: Bandage C/D/I. Extremities: No calf tenderness and No edema LAST VITALS: Pulse BP Resp O2 Sat Temp Pain 74 130/82 18 100 % 36.8 ?C (98.2 ?F) 0 Avg Min Max Vitals (last 12 hours) Flowsheet Row Name Average Min Max BP: Systolic 119.50 111 130 BP: Diastolic 72.25 63 82 Temp 36.8 ?C (98.23 ?F) 36.5 ?C (97.7 ?F) 37.1 ?C (98.8 ?F) Pulse 66.75 63 74 Resp 16.5 16 18 SpO2 97 % 95 % 100 % HT/WT/BMI: Height Weight BMI 170.2 cm (5' 7 ) 89.8 kg (198 lb) 31.01 LABS ABO/RH: 02/10/2020: O POSITIVE RUBELLA: 08/28/2019: 1.49 Index Value HANDH: Hematocrit (%) Date Value 02/11/2020 34.1 02/10/2020 35.4 Hemoglobin (g/dL) Date Value 02/11/2020 11.4 02/10/2020 12.2 Diagnostic tests reviewed for today's visit: Most recent labs and imaging results. SIGNATURE: Sara Angel APRN.CNP PATIENT NAME: Johanny Villegas DATE: February 11, 2020 TIME: 8:37 AM [facility] ANES PRE-OPon 02-10-2020 ANES PRE-OP HNO ID: [id number] Author: Mgagie Malik (Aa) Service: ? Author Type: Construction And Maintenance Inspector Type: Anesthesia Preprocedure Evaluation Filed: 02/10/2020 9:02 AM Note Text: -- Attestation signed by Jose Montoya I at 02/10/2020 10:08 AM Attending Note I have personally performed a face to face assessment of the patient and have reviewed the NEWS OPERATIONS MANAGER/AA note. My fulton findings include: Assessment/Plan are as documented. 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 TM distance: >3 FB. Neck ROM: full ROM without neurological symptoms. Mouth opening: adequate. Short neck: no. Thick neck: no DENTAL Dental findings: teeth intact. Additional exam findings: yes. CARDIOVASCULAR Normal cardiovascular observations. PULMONARY Normal pulmonary observations. ABDOMINAL Normal abdominal observations. BACK Normal back observations. Other findings: POTS- will give stress dose steroids- patient is on fludrocortisone . II - ANESTHESIA PLAN ASA Score: 2 Anesthetic Plan: spinal The patient is not a current smoker. NPO Status: adequate Monitoring plan: standard ASA. Postoperative analgesic plan: parenteral or oral opioids, per surgical service and multimodal analgesia. Anesthetic Risks, Benefits, Alternatives, Personnel Discussed. Consent obtained from: patient. Patient / Surrogate agrees to blood products: Yes Significant changes in the patient condition since the History and Physical, not otherwise documented in primary service progress note: no. Potential Anesthesia issues that may suggest increased risk of complications or contraindication to planned procedure: none. [facility] CHART REVIEW: ACTIVE PROBLEM LIST Previous Delivery Affecting Hx of Preeclampsia, Prior , Currently History of Iufd Lab Test Positive for Detection of Covid-19 Virus PAST MEDICAL HISTORY Diagnosis Date - Neurocardiogenic syncope have seizures if syncopal - Placental abruption - depression - Thyroid disease PAST SURGICAL HISTORY Procedure Laterality Date - ANESTH, SECTION - SECTION HX 2017,2019 - TONSILLECTOMY AND ADENOIDECTOMY HX FAMILY HISTORY Problem Relation Age of Onset - other (bi polar) Mother - Colon Cancer Father - Colon Cancer Paternal Grandfather Social History Tobacco Use - Smoking status: Never Smoker - Smokeless tobacco: Never Used Substance Use Topics - Alcohol use: Not Currently - Drug use: Never - citalopram (CELEXA) 40 mg tablet, Take 1 tablet by mouth once daily., Disp: 30 tablet, Rfl: 3, 02/10/2020 at Unknown time - aspirin, enteric coated (ECOTRIN LOW STRENGTH) 81 mg EC tablet, Take 81 mg by mouth once daily., Disp: , Rfl: , 02/09/2020 at Unknown time - fludrocortisone (FLORINEF) 0.1 mg tablet, Take 1 tablet by mouth once daily., Disp: 30 tablet, Rfl: 3 - Breast Pump, Use as directed, Disp: 1 Each, Rfl: 0 - PNV no.95/ferrous fum/folic ac ( ORAL), Take 1 tablet by mouth once daily., Disp: , Rfl: Inpatient medications reviewed in [facility] I have interviewed and examined the patient. I have reviewed the medical record and/or the pre-anesthesia evaluation, pertinent labs, and test results. This contains updated information obtained within 48 hours of Surgery/Procedure. SIGNATURE: SILVER Issa PATIENT NAME: Johanny Villegas DATE: February 10, 2020 TIME: 8:57 AM : 1990 Normal [facility] Blood Gases,Cord,Art (For Fa irview and HIL)on 02-10-2020 Base Deficit 2.3 mmol/L Low 4.4-8.3 [facility] Comment on above: Performed By: #### C OBG, GASCV #### [place] [address] HCO3 (Bld) [Moles/Vol] 25 mmol/L Normal 17-27 [facility] Comment on above: Performed By: #### C OBG, GASCV #### [place] [address] pCO2 54 mm Hg Normal 32-66 [facility] Comment on above: Performed By: #### C OBG, GASCV #### [place] [address] pH (Bld) 7.29 [pH] Normal 7.18-7.38 [facility] Comment on above: Performed By: #### C OBG, GASCV #### [place] [address] Blood Gases,Cord,Venon 02-09 Base Excess Negative Normal [facility] Comment on above: Performed By: #### C OBG, GASCV #### [place] [address] HCO3 (Bld) [Moles/Vol] 23 mmol/L Normal 15-25 [facility] Comment on above: Performed By: #### C OBG, GASCV #### [place] [phone] Oxygen (Bld) [Partial pressure] mm[Hg] High 5.5-30.5 [facility] Comment on above: Performed By: #### C OBG, GASCV #### [place] [phone] pCO2 45 mm Hg Normal 27-49 [facility] Comment on above: Performed By: #### C OBG, GASCV #### [place] [phone] pH (Bld) 7.33 [pH] Normal 7.20-7.40 [facility] Comment on above: Performed By: #### C OBG GASCV #### [place] [phone] CBCon 02-10-2020 Absolute nRBC <0.01 Normal <0.01 [facility] Comment on above: Performed By: #### C BC ####[phone] Erythrocyte distribution width (RBC) [Ratio] 13.0 % Normal 11.5-15.0 [facility] Comment on above: Performed By: #### C BC ####[phone] Hematocrit (Bld) [Volume fraction] 35.4 % Low 36.0-46.0 [facility] Comment on above: Performed By: #### C BC ####[place] [phone] Hemoglobin (Bld) [Mass/Vol] 12.2 g/dL Normal 11.5-15.5 [facility] Comment on above: Performed By: #### C BC ####[place] [phone] MCH (RBC) [Entitic mass] 33.7 pG Normal 26.0-34.0 [facility] Comment on above: Performed By: #### C BC ####[address] [phone] MCHC (RBC) [Mass/Vol] 34.5 g/dL Normal 30.5-36.0 [facility] Comment on above: Performed By: #### C BC ####[facility] [place] [address] [phone] MCV (RBC) [Entitic vol] 97.8 fL Normal 80.0-100.0 [facility] Comment on above: Performed By: #### C BC ####[address] [phone] Platelet mean volume (Bld) [Entitic vol] 11.0 fL Normal 9.0-12.7 [facility] Comment on above: Performed By: #### C BC ####[address] [phone] Platelets (Bld) [#/Vol] 213 10*3/uL Normal 150-400 [facility] Comment on above: Performed By: #### C BC ####[facility] [place] [address] [phone] RBC (Bld) [#/Vol] 3.62 10*6/uL Low 3.90-5.20 [facility] Comment on above: Performed By: #### C BC ####[address] [phone] WBC (Bld) [#/Vol] 7.90 10*3/uL Normal 3.70-11.00 [facility] Comment on above: Performed By: #### C BC ####[facility] [place] [address] [phone] OPERATIVE NOon 02-10-2020 OPERATIVE NO HNO ID: [id number] Author: Ayana Ly Service: Gynecology Author Type: Physician Type: Operative Report Filed: 02/11/2020 12:52 PM Note Text: OBSTETRICS OPERATIVE REPORT - SECTION Log ID: [id number] Surgery Date: 02/10/2020 Incision/Procedure Start Time: 10:15 AM Incision Close/Procedure End Time: 11:09 AM Gestational Age at Delivery: 37w0d Primary Reason for Delivery Today: Prior Intrauterine Demise Additional Clinical Indicators for Delivery: Scheduled Cesearean Section Indication for : Additional Pre-Op Details (if applicable): Prior c/s x2 Postop Diagnosis: Same as pre-op diagnosis Surgeon(s) and Multiple Games Dealer(s): Surgeon(s) and Role: * Ayana Ly - Primary Physician Multiple Games Dealer: Chema Keys Procedure(s): SECTION REPEAT: 18107 (CPT?) Anesthesia: Spinal Information for the patient's : Karli Villegas [[id number]] Type: , Low Transverse Operative Findings: Weight: 6 lb 9 oz (2.976 kg)(Filed from Delivery Summary) Sex: female One Minute : 8 Five Minute : 9 Cord Complications: None Additional Findings: Normal uterus, Normal tubes and Normal ovaries TECHNIQUE: The patient was taken to the operating room where spinal anesthesia was administered and found to be adequate. She was placed in supine position with a left tilt. SCD's were placed. Seals catheter was placed under sterile conditions. She was prepped and draped in the usual sterile fashion for abdominal surgery. Previous pfannenstiel incisions were excisied. Incision was taken down to the fascia with the bovie, and the fascia was incised in the midline. Incision was extended laterally sharply. Rectus muscles were dissected off the fascia bluntly and with the bovie and divided in the midline. Peritoneum was entered bluntly and incision was extended superiorly and inferiorly. She had some peritoneal adhesions that were taken down sharply. The bladder blade was then introduced. The vesicouterine peritoneum was incised and the incision was taken laterally. The bladder flap was created digitally. The bladder blade was then reintroduced. Hysterotomy was performed in a low transverse fashion with the scalpel. The incision was extended manually in a superolateral fashion. was delivered from a from a cephalic position atraumatically. Cord was clamped and cut, and was handed off to awaiting staff. Cord blood was collected. , A sample of the cord was collected to obtain the pH. Placenta then delivered spontaneously with fundal massage. The uterus was then exteriorized and cleared of clots and debris. The bladder blade was reintroduced. The uterus was closed in two layers. The first layer was a running locked stitched of 0-Vicryl. The second layer was in imbricating stitch of 0-Vicryl. Excellent hemostasis was obtained. Uterus was returned to the abdomen. Inspection of the pelvis noted the above findings. The peritoneum was closed with 3-0 Vicryl in a running fashion. The fascia was closed with 0 Vicryl in a running fashion. The subcutaneous tissue was closed with 3-0 Vicryl in a running fashion. The skin was closed with 4-0 Monocryl in a running fashion. Sponge, lap and needle counts were correct times two, and the patient was taken to the recovery room with stable vital signs after tolerating the procedure well. SPECIMEN: Cord blood specimen and Cord pH DRAINS: Seals to gravity. IO Blood Loss 02/10/20 0955 - 02/11/20 1024 Estimated Blood loss Anesthesia 600 cc Total 600 cc URINE OUTPUT: 100 mL IV FLUIDS: 1000 mL crystalloid COMPLICATIONS: None I/primary surgeon/proceduralist performed the procedure with assistance. No qualified resident/fellow was available. I performed the procedure until the subcutaneous and subcuticular closure which was done by Missael Keys. I was immediately available at that time. SIGNATURE: Ayana Ly MD PATIENT NAME: Johanny Villegas DATE: February 10, 2020 TIME: 11:05 AM Normal [facility] Pre Delivery T+Son 0 ABO/RH(D) Positive Normal [facility] Comment on above: Performed By: #### P REDEL ####[place] [id number] [place] [phone] CBCon 12-25-2019 Absolute nRBC <0.01 Normal <0.01 [facility] Comment on above: Performed By: #### C BC, CMP #### [place] [phone] Erythrocyte distribution width (RBC) [Ratio] 12.8 % Normal 11.5-15.0 [facility] Comment on above: Performed By: #### C BC, CMP #### [place] [phone] Hematocrit (Bld) [Volume fraction] 34.8 % Low 36.0-46.0 [facility] Comment on above: Performed By: #### C BC, CMP #### [place] [phone] Hemoglobin (Bld) [Mass/Vol] 11.7 g/dL Normal 11.5-15.5 [facility] Comment on above: Performed By: #### C BC, CMP #### [phone] MCH (RBC) [Entitic mass] 33.6 pG Normal 26.0-34.0 [facility] Comment on above: Performed By: #### C BC, CMP #### [phone] MCHC (RBC) [Mass/Vol] 33.6 g/dL Normal 30.5-36.0 [facility] Comment on above: Performed By: #### C BC, CMP #### [place] [phone] MCV (RBC) [Entitic vol] 100.0 fL Normal 80.0-100.0 [facility] Comment on above: Performed By: #### C BC, CMP #### [phone] Platelet mean volume (Bld) [Entitic vol] 10.2 fL Normal 9.0-12.7 [facility] Comment on above: Performed By: #### C BC, CMP #### [phone] Platelets (Bld) [#/Vol] 209 10*3/uL Normal 150-400 [facility] Comment on above: Performed By: #### C BC, CMP #### [place] [phone] RBC (Bld) [#/Vol] 3.48 10*6/uL Low 3.90-5.20 [facility] Comment on above: Performed By: #### C BC, CMP #### [address] [address] WBC (Bld) [#/Vol] 9.95 10*3/uL Normal 3.70-11.00 [facility] Comment on above: Performed By: #### C BC, CMP #### [address] [address] Comp Metabolic Panelon 12-24 Albumin [Mass/Vol] 3.5 g/dL Normal 3.5-5.0 [facility] Comment on above: Performed By: #### C BC, CMP ####[place] [phone] ALP [Catalytic activity/Vol] 131 U/L High 34-123 [facility] Comment on above: Performed By: #### C BC, CMP ####[place] [phone] ALT [Catalytic activity/Vol] 15 U/L Normal 0-45 [facility] Comment on above: Performed By: #### C BC, CMP ####[place] [phone] Anion gap [Moles/Vol] 11 mmol/L Normal 9-18 [facility] Comment on above: Performed By: #### C BC, CMP ####[place] [phone] AST [Catalytic activity/Vol] 20 U/L Normal 7-40 [facility] Comment on above: Performed By: #### C BC, CMP ####[place] [phone] Bilirubin [Mass/Vol] 0.3 mg/dL Normal 0.2-1.3 [facility] Comment on above: Performed By: #### C BC, CMP ####[place] [phone] Calcium [Mass/Vol] 9.4 mg/dL Normal 8.5-10.5 [facility] Comment on above: Performed By: #### C BC, CMP ####[place] [phone] Chloride [Moles/Vol] 101 mmol/L Normal 98-110 [facility] Comment on above: Performed By: #### C BC, CMP ####[place] [phone] CO2 [Moles/Vol] 22 mmol/L Low 23-32 [facility] Comment on above: Performed By: #### C BC, CMP ####[place] [phone] Creatinine [Mass/Vol] 0.61 mg/dL Low 0.70-1.40 [facility] Comment on above: Performed By: #### C BC, CMP ####[place] [phone] eGFR- Amer. >60 Normal >60 [facility] Comment on above: Performed By: #### C BC, CMP ####[place] [phone] GFR/1.73 sq M predicted among non-blacks MDRD (S/P/Bld) [Vol rate/Area] mL/min/{1.73_m2} Normal >60 [facility] Comment on above: Performed By: #### C BC, CMP ####[place] [phone] Glucose [Mass/Vol] 80 mg/dL Normal 65-100 [facility] Comment on above: Performed By: #### C BC, CMP ####[place] [phone] Potassium [Moles/Vol] 3.8 mmol/L Normal 3.5-5.0 [facility] Comment on above: Performed By: #### C BC, CMP ####[place] [phone] Protein [Mass/Vol] 6.2 g/dL Normal 6.0-8.4 [facility] Comment on above: Performed By: #### C BC, CMP ####[facility] [place], [place] [phone] Sodium [Moles/Vol] 134 mmol/L Normal 132-148 [facility] Comment on above: Performed By: #### C BC, CMP ####[facility] [place], [place] [phone] Urea nitrogen [Mass/Vol] 9 mg/dL Normal 8-25 [facility] Comment on above: Performed By: #### C BC, CMP ####[facility] [place], [place] [phone] HOSPon 12-25-2019 HOSP Patient:Jamie Villegas MRN: Height:5' 7 (1.702 m) Weight:198 lb (89.812 kg) Outpatient Medications as of 02/10/20: citalopram (CELEXA) 40 mg tablet fludrocortisone (FLORINEF) 0.1 mg tablet Breast Pump aspirin, enteric coated (ECOTRIN LOW STRENGTH) 81 mg EC tablet PNV no.95/ferrous fum/folic ac ( ORAL) Admission/Clinic Administered Medications as of 02/10/20: lactated ringers infusion lactated ringers 1,000 mL iv bolus oxytocin 10 Units iv bolus () (PITOCIN) oxytocin 30 unit in LR 500 mL iv infusion () (PITOCIN) PHENYLephrine 10 mg/mL injection (SAHARA-SYNEPHRINE) PHENYLephrine 10 mg in NaCl 0.9% 250 mL (SAHARA-SYNEPHRINE) metoclopramide HCl injection (REGLAN) Problem List: Previous delivery affecting [O34.219] Hx of preeclampsia, prior , currently [O09.299] History of IUFD [Z87.59] Lab test positive for detection of COVID-19 virus [U07.1] Allergies: No Known Allergies Date Verified:02/08/20 Lab Values Lab Value Units Date High Low LAURA* 35.4 % 02/10/2020 46.0 36.0 Progress Notes (SCIENTIFIC LINGUIST [facility]): Kenny Petty MD 02/08/2020 12:28 PM Signed Cat 1 NST. No ctx. C/S this Sat. Reviewed Instructions. Covid today. MD Kenny Kelly MD 02/08/2020 12:28 PM Signed NST SUMMARY PROVIDER ASSESSMENT AND INTERPRETATION Johanny Villegas is a 29 year old female, , who is at 36w5d with an CORNELIA of 03/02/2020, by Last Menstrual Period dating method. Indications for NST: Previous IUFD Baseline: 140 Variability: Moderate Accelerations: Present 15 X 15 Decelerations: None Contractions: TOCO: None Interpretation: Category I SIGNATURE: Kenny Petty MD Progress Notes (SCIENTIFIC LINGUIST [facility]): Lissette Duvall MD 02/05/2020 4:19 PM Signed Patient here for testing due to history IUFD BPP 11/06 See ultrasound for report. Lissette Duvall MD [facility] PROCEDUREon 12-25-2019 PROCEDURE HNO ID: [id number] Author: Harriet JohnsonRn) DARLINE Ronquillo Service: Nursing Author Type: Registered Nurse Type: Procedures Filed: 12/25/2019 11:56 AM Note Text: -- Attestation signed by Svetlana Lau at 12/25/2019 5:43 PM PROVIDER INTERPRETATION: Category I and appropriate for gestational age SIGNATURE: Svetlana Lau MD DATE: December 25, 2019 TIME: 5:43 PM -- OBSTETRICS NST SUMMARY SERVICE DATE: December 25, 2019 The patient is a 29 year old female, , who is at 30w2d with an CORNELIA of 03/02/2020, by Last Menstrual Period dating method. NST OBJECTIVE FINDINGS PER NURSE: Start Time: 1113 (12/25/19 1154 : Harriet Ronquillo RN) Complete Time: 1140 (12/25/19 1140 : Harriet Ronquillo RN) Indications: Other: Comment(h/a, lt shoulder pain, ) (12/25/19 1154 : Harriet Ronquillo RN) Patient Reason For: h/a, lt shoulder pain (12/25/19 1154 : Harriet Ronquillo RN) NST Explanation: Procedure Explained;Monitor Explained;Verbalizes Understanding (12/25/19 1154 : Harriet Ronquillo RN) Acoustic Stimulator: No (12/25/19 1140 : Harriet Ronquillo RN) Interventions: MONITORING/ASSESSMENT: Baseline: 135 bpm (12/25/19 1140 : Harriet Ronquillo RN) Variability: Moderate (6-25 bpm) (12/25/19 1140 : Harriet Ronquillo RN) Accelerations: Present (12/25/19 1140 : Harriet Ronquillo RN) Decelerations: Decelerations: None (12/25/19 1140 : Harriet Ronquillo RN) Contractions: Not present (12/25/19 1140 : Harriet Ronquillo RN) Frequency: Above information forwarded to dr lau (12/25/19 1140 : Harriet Ronquillo RN) for final review and interpretation. SIGNATURE: Harriet Ronquillo RN PATIENT NAME: Johanny Villegas DATE: December 25, 2019 TIME: 11:56 AM [facility] PROGRESSon 12-25-2019 PROGRESS HNO ID: [id number] Author: Svetlana Lau Service: Obstetrics Author Type: Physician Type: Progress Notes Filed: 12/25/2019 5:51 PM Note Text: OBSTETRICS TRIAGE PROGRESS NOTE SERVICE DATE: December 25, 2019 SERVICE TIME: 2:00 PM Subjective Patient's stated reason for arrival: CHIEF COMPLAINT: headache HISTORY OF THE PRESENT ILLNESS: The patient is a 29 year old female, , who is at 30w2d with an CORNELIA of 03/02/2020, by Last Menstrual Period dating method. Patient is here for evaluation of headache. She has a h/o 34 week delivery for preeclampsia and then a 38 week IUFD (presumed abruption, diagnosed at delivery). No vision changes or RUQ/epigastric pain. No fevers/chills, nasal congestion, cough. No chest pain or shortness of breath. Some shoulder discomfort. Good movement. No bleeding or leaking fluid. Headache now resolved. Concerned about preeclampsia given her past history. REVIEW OF SYSTEMS: PAIN ASSESSMENT: Negative for pain, history of chronic pain, or current treatment for a chronic pain condition. GENERAL: No weight loss, malaise or fevers. HEENT: Negative for frequent or significant headaches, No changes in hearing or vision, no nose bleeds or other nasal problems NECK: Negative for goiter, pain or significant neck swelling RESPIRATORY: Negative for cough, hemoptysis, wheezing, COPD, dyspnea or shortness of breath CARDIOVASCULAR: Negative for chest pain, leg swelling, hypertension, CHF or palpitations GI: No nausea, vomiting, or diarrhea : No history of dysuria, frequency or incontinence RESEARCH NURSE: Negative for abnormal vaginal bleeding, abnormal vaginal discharge MUSCULOSKELETAL: Negative for joint pain or swelling, back pain or muscle pain SKIN: Negative for lesions, rash, and itching. PSYCH: Negative for sleep disturbance, mood disorder and recent psychosocial stressors. HEMATOLOGY/LYMPHOLOGY: Negative for prolonged bleeding, bruising easily or swollen nodes. ENDOCRINE: Negative for cold or heat intolerance, polyuria or polydipsia. NEURO: No history of headaches, syncope, paralysis, seizures or tremors The remainder of the review of systems is negative. Objective LAST VITALS: 131/71, 130/79, HR 82, 83. AF Pulse BP Resp O2 Sat Temp Pain HT/WT/BMI: Height Weight BMI PHYSICAL EXAM: General: WD, WN Abdomen: soft, nontender, no masses Extremities: no edema CERVICAL EXAM: Dilation: cm Station: Effacement: % Presentation: MONITORING/ASSESSMENT: testing reassuring - see additional documentation Ultrasound: most recent results reviewed LABS Diagnostic tests reviewed for today's visit: Most recent labs Assessment/Plan 29 year old EGA:30w2d. Poor OB history (preeclampsia, abruption, stillbirth) Mild headache, now resolved. No concern for preeclampsia. NST Category 1 and appropriate for gestational age (10 x 10 accelerations). Good movement. Recent growth ultrasound normal. Okay for discharge to home with continued outpatient management plan. Kick counts. Repeat growth ultrasound 32 weeks with 2x weekly testing (NST/BPP) at that time. Delivery plan for 37 weeks (repeat CS). Plan of care discussed with: Provider, RN, Patient. SIGNATURE: Svetlana Lau MD PATIENT NAME: Johanny Villegas DATE: December 25, 2019 TIME: 5:45 PM PAGER/CONTACT #: [facility] PROGRESS HNO ID: [id number] Author: Svetlana Lau Service: Obstetrics Author Type: Physician Type: Progress Notes Filed: 12/25/2019 5:51 PM Note Text: OBSTETRICS TRIAGE PROGRESS NOTE SERVICE DATE: December 25, 2019 SERVICE TIME: 2:00 PM Subjective Patient's stated reason for arrival: CHIEF COMPLAINT: headache HISTORY OF THE PRESENT ILLNESS: The patient is a 29 year old female, , who is at 30w2d with an CORNELIA of 03/02/2020, by Last Menstrual Period dating method. Patient is here for evaluation of headache. She has a h/o 34 week delivery for preeclampsia and then a 38 week IUFD (presumed abruption, diagnosed at delivery). No vision changes or RUQ/epigastric pain. No fevers/chills, nasal congestion, cough. No chest pain or shortness of breath. Some shoulder discomfort. Good movement. No bleeding or leaking fluid. Headache now resolved. Concerned about preeclampsia given her past history. REVIEW OF SYSTEMS: PAIN ASSESSMENT: Negative for pain, history of chronic pain, or current treatment for a chronic pain condition. GENERAL: No weight loss, malaise or fevers. HEENT: Negative for frequent or significant headaches, No changes in hearing or vision, no nose bleeds or other nasal problems NECK: Negative for goiter, pain or significant neck swelling RESPIRATORY: Negative for cough, hemoptysis, wheezing, COPD, dyspnea or shortness of breath CARDIOVASCULAR: Negative for chest pain, leg swelling, hypertension, CHF or palpitations GI: No nausea, vomiting, or diarrhea : No history of dysuria, frequency or incontinence RESEARCH NURSE: Negative for abnormal vaginal bleeding, abnormal vaginal discharge MUSCULOSKELETAL: Negative for joint pain or swelling, back pain or muscle pain SKIN: Negative for lesions, rash, and itching. PSYCH: Negative for sleep disturbance, mood disorder and recent psychosocial stressors. HEMATOLOGY/LYMPHOLOGY: Negative for prolonged bleeding, bruising easily or swollen nodes. ENDOCRINE: Negative for cold or heat intolerance, polyuria or polydipsia. NEURO: No history of headaches, syncope, paralysis, seizures or tremors The remainder of the review of systems is negative. Objective LAST VITALS: 131/71, 130/79, HR 82, 83. AF Pulse BP Resp O2 Sat Temp Pain HT/WT/BMI: Height Weight BMI PHYSICAL EXAM: General: WD, WN Abdomen: soft, nontender, no masses Extremities: no edema CERVICAL EXAM: Dilation: cm Station: Effacement: % Presentation: MONITORING/ASSESSMENT: testing reassuring - see additional documentation Ultrasound: most recent results reviewed LABS Diagnostic tests reviewed for today's visit: Most recent labs Assessment/Plan 29 year old EGA:30w2d. Poor OB history (preeclampsia, abruption, stillbirth) Mild headache, now resolved. No concern for preeclampsia. NST Category 1 and appropriate for gestational age (10 x 10 accelerations). Good movement. Recent growth ultrasound normal. Okay for discharge to home with continued outpatient management plan. Kick counts. Repeat growth ultrasound 32 weeks with 2x weekly testing (NST/BPP) at that time. Delivery plan for 37 weeks (repeat CS). Plan of care discussed with: Provider, RN, Patient. SIGNATURE: Svetlana Lau MD PATIENT NAME: Johanny Villegas DATE: December 25, 2019 TIME: 5:45 PM PAGER/CONTACT #: Normal [facility] Type and Scr,Prenatlon 04-11 ABO/RH(D) Positive Normal [facility] CORD BLD ABO RH DIRECT COOMB Son 07-30-2018 ABO and Rh group Nom (Bld) Direct Haim Cord Negative ABO RH CORD BLOOD A Rh Negative Normal [facility] Comment on above: Performed By: #### C ORD #### [facility] [address] [place], [place] [address] Yomaira Branham CORD BLOOD PHon 07-29-2018 pH CORD ARTERIAL 6.912 Critically low 7.090-7.390 [facility] Comment on above: Performed By: #### C ORDPH #### [facility] [address] [place], [place] [address] Yomaira Branham pH CORD VENOUS 7.228 Normal 7.190-7.450 [facility] Comment on above: Performed By: #### C ORDPH #### [facility] [address] [place] [phone] Yomaira Branham Vital Signs Date Time Vital Sign Value Performing Clinician Facility 11-28-2023 09:21-0400 Body height 170.2 cm Ayana Ly MD Work Phone: [facility] 11-28-2023 09:21-0400 Body mass index (BMI) [Ratio] 26.24 kg/m2 Ayana Ly MD Work Phone: [facility] 11-28-2023 09:21-0400 Body weight 76 kg Ayana Ly MD Work Phone: [facility] 11-28-2023 09:21-0400 Diastolic blood pressure 72 mm[Hg] Ayana Ly MD Work Phone: [facility] 11-28-2023 09:21-0400 Systolic blood pressure 114 mm[Hg] Ayana Ly MD Work Phone: [facility] 10-16-2023 15:29-0400 Body height 172.72 cm [facility] 10-16-2023 15:29-0400 Body mass index (BMI) [Ratio] 25.8 kg/m2 [facility] 10-16-2023 15:29-0400 Body temperature 98.8 [degF] [facility] 10-16-2023 15:29-0400 Body weight 77.11 kg [facility] 10-16-2023 15:29-0400 Diastolic blood pressure 70 mm[Hg] [facility] 10-16-2023 15:29-0400 Heart rate 76 /min [facility] 10-16-2023 15:29-0400 Respiratory rate 16 /min [facility] 10-16-2023 15:29-0400 SaO2% (BldA) [Mass fraction] 98 % [facility] 10-16-2023 15:29-0400 Systolic blood pressure 112 mm[Hg] [facility] 09-21-2022 09:52-0400 Body height 170.2 cm Fabi Elaine MD Work Phone: [facility] 09-21-2022 09:52-0400 Body weight 77.11 kg Fabi Elaine MD Work Phone: [facility] 09-21-2022 09:52-0400 Diastolic blood pressure 78 mm[Hg] Fabi Elaine MD Work Phone: [facility] 09-21-2022 09:52-0400 Systolic blood pressure 124 mm[Hg] Fabi Elaine MD Work Phone: [facility] 01-11-2022 11:10-0400 Body height 172.72 cm Irina Jimenez Other [employer] Other 01-11-2022 11:10-0400 Body mass index (BMI) [Ratio] 26.76 kg/m2 Irina Jimenez Other [employer] Other 01-11-2022 11:10-0400 Body temperature 97.9 [degF] Irina Jimenez Other [employer] Other 01-11-2022 11:10-0400 Body weight 79.83 kg Irina Jimenez Other [employer] Other 01-11-2022 11:10-0400 Diastolic blood pressure 68 mm[Hg] Irina Jimenez Other [employer] Other 01-11-2022 11:10-0400 Respiratory rate 18 /min Irina Jimenez Other [employer] Other 01-11-2022 11:10-0400 SaO2% (BldA) [Mass fraction] 98 % Irina Jimenez Other [employer] Other 01-11-2022 11:10-0400 Systolic blood pressure 116 mm[Hg] Irina Jimenez Other [facility] [employer] Other 01-03-2022 12:27-0400 Diastolic blood pressure 77 mm[Hg] Yamilex Acevedo MD Work Phone: [place] 01-03-2022 12:27-0400 Heart rate 76 /min Yamilex Acevedo MD Work Phone: [facility] 01-03-2022 12:27-0400 Respiratory rate 16 /min Yamilex Acevedo MD Work Phone: [place] 01-03-2022 12:27-0400 SaO2% (BldA) [Mass fraction] 100 % Yamilex Acevedo MD Work Phone: [place] 01-03-2022 12:27-0400 Systolic blood pressure 120 mm[Hg] Yamilex Acevedo MD Work Phone: [place] 01-03-2022 12:09-0400 Body temperature 97.59 [degF] Yamilex Acevedo MD Work Phone: [place] 01-03-2022 09:49-0400 Body height 170.2 cm Yamilex Acevedo MD Work Phone: [place] 01-03-2022 09:49-0400 Body mass index (BMI) [Ratio] 27.41 kg/m2 Yamilex Acevedo MD Work Phone: [place] 01-03-2022 09:49-0400 Body weight 79.38 kg Yamilex Acevedo MD Work Phone: [place] 07-26-2021 09:53-0400 Body height 170.2 cm Guillermina Raman ROTARY DRILL OPERATOR HELPER.THERMAL CUTTING MACHINE OPERATOR Work Phone: [facility] 07-26-2021 09:53-0400 Body weight 74.84 kg Guillermina Raman ROTARY DRILL OPERATOR HELPER.THERMAL CUTTING MACHINE OPERATOR Work Phone: [facility] 07-26-2021 09:53-0400 Diastolic blood pressure 68 mm[Hg] Guillermina Fog ROTARY DRILL OPERATOR HELPER.THERMAL CUTTING MACHINE OPERATOR Work Phone: [facility] 07-26-2021 09:53-0400 Systolic blood pressure 112 mm[Hg] Guillermina Fog ROTARY DRILL OPERATOR HELPER.THERMAL CUTTING MACHINE OPERATOR Work Phone: [facility] 03-15-2021 16:20-0500 Body height 172.72 cm Irina Jimenez Other [employer] Other 03-15-2021 16:20-0500 Body mass index (BMI) [Ratio] 26.3 kg/m2 Irina Jimenez Other [employer] Other 03-15-2021 16:20-0500 Body temperature 98.5 [degF] Irina Jimenez Other [employer] Other 03-15-2021 16:20-0500 Body weight 78.47 kg Irina Jimenez Other [employer] Other 03-15-2021 16:20-0500 Diastolic blood pressure 70 mm[Hg] Irina Jimenez Other [employer] Other 03-15-2021 16:20-0500 Respiratory rate 18 /min Irina Jiemnez Other [employer] Other 03-15-2021 16:20-0500 SaO2% (BldA) [Mass fraction] 98 % Irina Jimenez Other [employer] Other 03-15-2021 16:20-0500 Systolic blood pressure 110 mm[Hg] Irina Jimenez Other [employer] Other Encounters Encounter Date Encounter Type Care Provider Facility Start: 12-05-2023 End: 12-05-2023 Refill Fabi Elaine MD Work Phone: Obstetrics/Gynecology Comment on above: Refill Request Start: 11-28-2023 End: 11-28-2023 Patient encounter procedure Ayana Ly MD Work Phone: Obstetrics/Gynecology Comment on above: Encounter for gyneco logical examination (general) (routine) without abnormal findings (Primary Dx) Start: 11-28-2023 End: 11-28-2023 Patient encounter status Ayana Ly MD Work Phone: [facility] Work Phone: Start: 10-22-2023 Refill Fabi Elaine MD Work Phone: Obstetrics/Gynecology Comment on above: Refill Request Start: 10-16-2023 End: 10-16-2023 ambulatory [facility] Work Phone: Start: 10-16-2023 End: 10-16-2023 Patient encounter procedure [facility] Work Phone: Start: 09-24-2023 Non-patient / Non-visit [facility] Work Phone: Start: 12-10-2022 Refill Guillermina felix APRN.THERMAL CUTTING MACHINE OPERATOR Work Phone: Obstetrics/Gynecology Comment on above: Refill Request Start: 09-21-2022 End: 09-21-2022 ambulatory FABI ELAINE Facility:[facility] Start: 09-21-2022 End: 09-21-2022 Patient encounter procedure Fabi Elaine MD Work Phone: Obstetrics/Gynecology Comment on above: Encounter for gyneco logical examination (general) (routine) without abnormal findings (Primary Dx); Screening for cervical cancer; Encounter for screening for human papillomavirus (HPV); Encounter for surveillance of contraceptive pills; Breast pain, left Start: 09-21-2022 End: 09-21-2022 Patient encounter status Fabi Elaine MD Work Phone: Obstetrics/Gynecology Start: 06-27-2022 Refill Guillermina felix ROTARY DRILL OPERATOR HELPER.THERMAL CUTTING MACHINE OPERATOR Work Phone: Obstetrics/Gynecology Comment on above: Refill Request Start: 01-11-2022 End: 01-11-2022 ambulatory Irina Jimenez Other [employer] Other Start: 01-11-2022 Office outpatient vi sit 15 minutes Irina Jimenez [facility] Start: 01-03-2022 End: 01-03-2022 ambulatory YAMILEX ACEVEDO [facility] Start: 01-03-2022 End: 01-03-2022 Subsequent hospital visit by physician Yamilex Acevedo MD Work Phone: [facility] Comment on above: Sebaceous cyst Start: 12-29-2021 Preprocedural examin ation done Yamilex Acevedo MD Work Phone: [facility] Work Phone: Start: 10-26-2021 End: 10-26-2021 ambulatory Irina Jimenez Other [employer] Other Start: 10-26-2021 Telephone encounter Irina Jimenez [facility] Start: 10-09-2021 End: 10-09-2021 ambulatory Irnia Jimenez Other [employer] Other Start: 10-09-2021 Telephone encounter Irina Jimenez [facility] Start: 09-28-2021 End: 09-28-2021 ambulatory Irina Jimenez Other [employer] Other Start: 09-28-2021 Telephone encounter Irina Jimenez [facility] Start: 07-26-2021 End: 07-26-2021 Patient encounter procedure Guillermina Raman APRN.THERMAL CUTTING MACHINE OPERATOR Work Phone: Obstetrics/Gynecology Comment on above: Encounter for gyneco logical examination (general) (routine) without abnormal findings (Primary Dx); Encounter for screening breast examination; Oral contraceptive pill surveillance; Low libido Start: 07-26-2021 End: 07-26-2021 Patient encounter status Guillermina Raman ROTARY DRILL OPERATOR HELPER.THERMAL CUTTING MACHINE OPERATOR Work Phone: Obstetrics/Gynecology Start: 03-15-2021 End: 03-15-2021 ambulatory Irina Jimenez Other [facility] [employer] Other Start: 03-15-2021 Office outpatient vi sit 15 minutes Irina Jimenez [facility] [place] Start: 03-14-2021 End: 03-15-[address] DAISHA RIDDLE Facility:[facility] Start: 07-29-2018 End: 07-29-2018 Evaluation and management of inpatient FELIPE LOWRY Facility:[facility] Procedures Date Procedure Procedure Detail Performing Clinician Start: 01-03-2022 Urine test visual color cmprsn meths Stiven Duran MD Work Phone: Start: 02-10-2020 Antibody screen Comment on above: Performed By: #### P [facility] ####[address] [phone] Start: 07-30-2019 End: 03-22-2020 H/O: section Previous delivery affecting Fabi Elaine MD Work Phone: Start: 04-11-2019 Antibody screen Plan of Treatment Date Care Activity Detail Author Start: 12-31-2029 DTaP/Tdap/Td vaccine (2 - Td or Tdap) DTaP/Tdap/Td vaccine (2 - Td or Tdap) [facility] Start: 12-31-2029 Urine microalbumin profile [facility] Start: 09-22-2027 HPV TESTING HPV TESTING [facility] Start: 09-22-2027 PAP TESTING PAP TESTING [facility] Start: 09-22-2027 Screening for malign ant neoplasm of cervix Cervical Cancer Screening [facility] Start: 12-11-2024 End: 12-11-2024 Patient encounter procedure 12/11/2024 9:00 AM EDT Office Visit Obstetrics/Gynecology [address] [place] [address] Guillermina Raman, ROTARY DRILL OPERATOR HELPER.THERMAL CUTTING MACHINE OPERATOR [address] [facility] [place] [address] Annual Obstetrics/Gynecolog y Comment on above: Annual Start: 07-29-2024 HPV TESTING HPV TESTING [facility] Start: 07-29-2024 PAP TESTING PAP TESTING [facility] Start: 12-01-2023 Covid-19 Vaccine ( season) Covid-19 Vaccine ( season) [facility] Start: 12-01-2023 Influenza vaccination Influenza Vacc ine (#1) [facility] Start: 11-28-2023 End: 11-28-2023 Patient encounter procedure 11/28/2023 9:30 AM EDT Office Visit Obstetrics/Gynecology [address] [place], [place] [id number] [place] [address] [place], [place] [phone] annual Obstetrics/Gynecolog y Comment on above: annual Start: 04-01-2023 Behavioral Health Screening Behavioral Health Screening [facility] Start: 12-29-2022 Depression Screen Depression Screen [facility] Start: 11-30-2022 Covid-19 Vaccine ( season) Covid-19 Vaccine () [facility] Start: 11-30-2022 Influenza vaccination C [facility] Start: 04-01-2022 DEPRESSION ASSESSMENT DEPRESSION ASS ESSMENT [facility] Start: 01-03-2022 End: 01-03-2022 Biopsy soft tissue leg/ankle area deep LEG LESION BIOPSY EXCISION Sebaceous cyst 01/03/2022 10:59 AM EDT [facility] Start: 11-30-2021 Influenza vaccination C [facility] Start: 10-30-2021 Influenza vaccination Flu vaccine (# 1) [facility] Start: 2019 Screening for malign ant neoplasm of cervix [facility] Start: 2010 Screening for malign ant neoplasm of cervix Pap smear [facility] Start: 02-29-2008 Hepatitis B Vaccine (1 of 3 - 19+ 3-dose series) Hepatitis B Vaccine (1 of 3 - 19+ 3-dose series) [facility] Start: 2007 ANNUAL PCP TEAM STONECUTTER JEF DISEASE VISIT ANNUAL PCP TEAM CHRONIC DISEASE VISIT [facility] Start: 2007 Anxiety Screening Anxiety Screening [facility] Start: 2007 Depression Screening Depression Scre ening [facility] Start: 2007 HEPATITIS C SCREENING HEPATITIS C SC AYSHA [facility] Start: 2007 Hepatitis C screening [facility] Start: 02-29-2004 HIV screening HIV screen [facility] Start: 2001 Adult depression screening assessment DEPRESSION SCREENING [facility] Start: 1994 COVID-19 VACCINE (1) COVID-19 VACCIN E (1) [facility] Start: 1990 Varicella vaccine (1 of 2 - 2-dose childhood series) Varicella vaccine (1 of 2 - 2-dose childhood series) [facility] Start: 1989 COVID-19 Vaccine (#1) COVID-19 Vacci ne (#1) [facility] Start: 1989 HEPATITIS B (1 of 3 - 3-dose series) HEPATITIS B (1 of 3 - 3-dose series) [facility] End: 10-21-2023 RYAN DIAGNOSTIC LEFT RYAN DIAGNOSTIC LEFT Radiology Routine Breast pain, left 1 Occurrences starting 09/21/2022 until 10/21/2023 [facility] Work Phone: Comment on above: 1 Occurrences starti ng 09/21/2022 until 10/21/2023 PAP TEST PAP TEST Lab Rou jennifer Screening for cervical cancer Encounter for screening for human papillomavirus (HPV) 09/21/2022 10:33 AM EDT [facility] Work Phone: Surgical Pathology Surgical Path ology Lab Routine Sebaceous cyst Release Upon Ordering for 1 Occurrences starting 01/03/2022 [facility] Work Phone: Comment on above: Release Upon Orderin g for 1 Occurrences starting 01/03/2022 End: 10-21-2023 US BREAST LTD LEFT US BREAST LTD LEFT Radiology Routine Breast pain, left 1 Occurrences starting 09/21/2022 until 10/21/2023 [facility] Work Phone: Comment on above: 1 Occurrences starti ng 09/21/2022 until 10/21/2023 [facility] Immun[facility] Immunization Date Immunization Notes Care Provider Chio henry 01-01-2020 tetanus toxoid, reduced diphtheria toxoid, and acellular pertussis vaccine, adsorbed Guillermina Raman APRN.CNP Work Phone: [facility] NEGATED: Highlighted row has not occurred!03-15-2021 influenza, seasonal, injectable Patient Objection Irina Jimenez Other [employer] Other Payers Date Payer Category Payer Unknown [id number] 2019 Unknown GAVIN CALI PPO [id number] 2019-Present [phone] [id number] [place] [address] PPO [id number] 2019 Unknown [id number] 1989 Unknown [id number] 1989 Unknown [id number] 1989 Unknown [id number] 1959 Unknown [id number] Self-pay Self Pay [id number] Social History Date Type Detail Facility Start: 03-03-2019 End: 09-21-2022 Tobacco smoking status NHIS Never smoked tobacco [facility] Start: 03-03-2019 End: 09-21-2022 Tobacco use and exposure Smokeless tobacco non-user [facility] Start: 07-26-2021 Alcohol intake Ex-drinker (finding) [facility] Start: 02-11-2020 End: 12-29-2021 History SDOH Financial 5 [facility] Start: 02-11-2020 End: 12-29-2021 History SDOH Food Worry 1 [facility] Start: 02-11-2020 History SDOH Transpo rt Med 2 [facility] Start: 1989 Sex Assigned At Not on file [facility] Start: 07-16-2021 End: 01-03-2022 Exposure to SARS-CoV-2 (event) Not sure [facility] Start: 02-11-2020 End: 09-21-2022 Sex Assigned At [facility] Start: 01-03-2022 Alcohol intake Lifetime non-d sarah (finding) [facility] Phone: Start: 09-21-2022 End: 11-28-2023 Alcohol intake Current drinker of alcohol (finding) [facility] Start: 09-21-2022 Alcohol Comment socially [facility] Start: 02-11-2020 End: 09-21-2022 History of Social function [facility] How hard is it for y ou to pay for the very basics like food, housing, medical care, and heating Not hard at all [facility] (I/We) worried nanette er (my/our) food would run out before (I/we) got money to buy more. Never true [facility] Start: 1989 Sex Assigned At Female F [facility] Clinical Notes 10-30-2019 to 12-05-2023 Telephone Encounter - Jessica Seals RN - 12/05/2023 8:14 AM EDTTelephone Encounter - Jessica Seals RN - 12/05/2023 8:14 AM Ayana Hutson MD - 11/28/2023 9:56 AM EDT Note Date & Type Note Facility 12-05-2023 Telephone encounter Note Annual 11/28/2023 Requesting refills on medication Pended. [facility] 12-05-2023 Miscellaneous Notes Annual 11/28/2023 Requesting refills on medication Pended. documented in this encounter [facility] 11-28-2023 History of Presen t illness Narrative Johanny Villegas is a 33 year old G3P 3002 female who presents for an annual exam. Today, she has no complaints. She has a regular period on the pill. Mild cramps. No other pelvic pain or vulvovaginal issues Not sure if they want another baby yet. Exercises regularly. Father had found out he had Gonzales syndrome a few years ago, she just got tested and is negative. Hx of abnormal pap:no; neg hpv 2022 hx of STDs: no Contraception:oral contraceptives OB History T2 L2 SAB0 IAB0 Ectopic0 Multiple0 Live Births2 PAST MEDICAL HISTORY No date: Neurocardiogenic syncope Comment: have seizures if syncopal No date: Placental abruption No date: depression No date: Thyroid disease PAST SURGICAL HISTORY 2016,2018, 2019: SECTION HX No date: TONSILLECTOMY AND ADENOIDECTOMY HX Alcohol Use: Yes (socially) Tobacco Use: Never Drug Use: Never FAMILY HISTORY Problem Relation Age of Onset other (bi polar) Mother Colon Cancer Father gonzales syndrome. she tested neg Prostate Cancer Father Colon Cancer Paternal Grandfather MEDS: Current Outpatient Medications Medication Sig Dispense Refill citalopram (CELEXA) 40 mg tablet take 1 tablet daily 90 tablet 3 Drospirenone-Ethinyl Estradiol (CHER) 3-0.03 mg per tablet Take 1 tablet by mouth once daily. 84 tablet 3 No current facility-administered medications for this visit. ALLERGIES: ALLERGIES No Known Allergies ROS: GENERAL: Negative for: Fatigue NECK: Negative for: Pain CARDIOLOGY: negative chest pain and palpitations RESPIRATORY: Negative for: Shortness of breath GASTROINTESTINAL: negative nausea, vomiting, diarrhea, constipation; MUSCULOSKELETAL: Negative for: Muscle or joint pain NEUROLOGIC: negative for headaches; celexa helps prevent seizures. Hasn't had in years PSYCHIATRIC: Negative for: Anxiety, Depression; SKIN: Negative for: Rash, Itching ENDOCRINE: negative; has tfts followed. No meds GENITOURINARY: Negative for: abnormal bleeding, pelvic pain, vaginal itching, vaginal discharge; negative urinary complaints BREAST: negative; had pain last year, resolved PE: Body mass index is 26.24 kg/m . GENERAL:Well developed, Well nourished, No acute distress NECK: supple, no lymphadenopathy, no thyromegaly ABD: flat, nontender, no guarding, no rebound tenderness, no HSM EXT:no C/C/E SKIN:Skin color, texture, turgor normal. No rashes or lesions BREASTS: soft, non-tender, symmetric, no dominant mass, normal nipple-areolar complex, no lymphadenopathy, and no nipple discharge PELVIC:Normal BUS, NEFG, normal vagina, and normal cervix, Normal uterus, normal ovaries bilaterally pap not done Assessment/Plan: (Z01.419) Encounter for gynecological examination (general) (routine) without abnormal findings (primary encounter diagnosis) Normal exam. Pap not due Will continue ocps. If they decide they are done having children, he will get vasectomy. Reviewed diet, exercise, SBE, skin cancer prevention. Reviewed tobacco, alcohol, drug use. The patient was counseled about oral contraceptive pills, including their mechanism of action, efficacy, potential side effects, risks and benefits. No contraindications exist including family history of clotting disorder or early stroke or heart attack. Any new medications given to pt. have been explained as to directions, reasons for prescribing and side effects Followup in 1 year ./rubio Ly MD documented in this encounter [facility] 11-28-2023 Nurse Note Commodity Manager offered: Patient declines. [facility] 11-28-2023 Nurse Note Commodity Manager offered: Patient declines. documented in this encounter [facility] 10-22-2023 Telephone encounter Note Refill request for OCP Last annual exam: 09/22/23 Next scheduled annual exam: 11/28/23 Orders pended if appropriate. Joelle Knox RN [facility] 10-22-2023 Miscellaneous Notes Refill request for OCP Last annual exam: 09/22/23 Next scheduled annual exam: 11/28/23 Orders pended if appropriate. Joelle Knox RN documented in this encounter [facility] 12-10-2022 Miscellaneous Notes Last annual 09-21-22. Next annual 11-28-23. Requesting Celexa refill. Please advise. Samir Melgoza RN documented in this encounter [facility] 09-21-2022 Note HNO ID: [id number] Author: Fabi Elaine MD Service: ? Author Type: Physician Type: Progress Notes Filed: 09/21/2022 12:54 PM Note Text: Johanny is a 32 year old who presents for an annual gynecologic exam with complaints. Has had left breast pain for the past 2 months, worse just before her periods. No lump , no nipple discharge. Pain is constant , but worse the week prior to her periods. It is an achy pain all along the lateral wall of breast. No trauma. Menses: cycles every 28 days. Contraception: combined hormonal contraceptives No migraines with aura, HTN, blood clots, stroke hx. HPV vaccine: No Last Pap: 08/03/2019 normal HPV: 08/04/2019 negative History of abnormal pap: No Last mammogram: never Sexually active: Yes, but rarely Patient concerns for STD exposure: No. OB History T2 L2 SAB0 IAB0 Ectopic0 Multiple0 Live Births2 Risk Modeler History LMP: 08/25/2022, Having periods Age at Menarche: 13 Age at First : Age at Menopause: Risk Modeler History Comments: Sexual Activity: Yes; Male Contraception: Pill PAST MEDICAL HISTORY Diagnosis Date Neurocardiogenic syncope have seizures if syncopal Placental abruption depression Thyroid disease PAST SURGICAL HISTORY Procedure Laterality Date SECTION HX 2017,20182019 TONSILLECTOMY AND ADENOIDECTOMY HX FAMILY HISTORY Problem Relation Age of Onset other (bi polar) Mother Colon Cancer Father Prostate Cancer Father Colon Cancer Paternal Grandfather SOCIAL HISTORY Social History Tobacco Use Smoking status: Never Smokeless tobacco: Never Vaping Use Vaping Use: Never used Substance Use Topics Alcohol use: Yes Comment: socially Drug use: Never REVIEW OF SYSTEMS Abdomen: No abdominal pain, nausea, vomiting, diarrhea, or constipation. No bloating, early satiety, indigestion, or increased flatulence. Bladder: No dysuria, gross hematuria, urinary frequency, urinary urgency, or incontinence. Breast: No breast lumps, nipple d/c, overlying skin changes, redness or skin retraction. Complaint of pain in left breast Allergies and current medication updated:Yes EXAM: BP 124/78 Ht 5' 7 (1.70m) Wt 170 lb (77.1kg) LMP 08/25/2022 BMI 26.62 kg/(m2). GENERAL: pleasant, female in no apparent distress HEENT: Normocephalic, atraumatic, mucus membranes moist, and no lesions NECK: Supple, full range of motion, no adenopathy, and thyroid normal DERMATOLOGY: Normal, without lesions, non-icteric, and non-hirsute BREAST: soft, non-tender, symmetric, no dominant mass, normal nipple-areolar complex, no lymphadenopathy, and no nipple discharge CHEST: Normal inspiratory effort ABDOMEN: soft, non-tender, and no masses PELVIC: external genitalia normal, normal Bartholin's glands, urethra, [place]'s glands, no vulvar lesions, no cervical lesions, good vaginal support, physiologic discharge present, normal appearing perineal body and perianal region BIMANUAL: uterus normal size, shape and consistency, no adnexal masses, and non-tender RECTOVAGINAL: deferred. NEURO: alert and oriented x3,exam grossly non-focal EXTREMITIES: normal ASSESSMENT/PLAN: 1) Health maintenance: Pap done with HPV. Nutrition, exercise and routine health maintenance exams reviewed. Calcium/Vitamin D supplementation information provided. 2) Contraception: combined hormonal contraceptives. Contraceptive options reviewed and information provided. 3) STD screening: Declined STD check. 4) Left breast pain- diagnostic imaging ordered 5) Follow up one year or sooner as needed Fabi Elaine MD [facility] 09-21-2022 History of Presen t illness Narrative Johanny is a 32 year old who presents for an annual gynecologic exam with complaints. Has had left breast pain for the past 2 months, worse just before her periods. No lump , no nipple discharge. Pain is constant , but worse the week prior to her periods. It is an achy pain all along the lateral wall of breast. No trauma. Menses: cycles every 28 days. Contraception: combined hormonal contraceptives No migraines with aura, HTN, blood clots, stroke hx. HPV vaccine: No Last Pap: 08/03/2019 normal HPV: 08/04/2019 negative History of abnormal pap: No Last mammogram: never Sexually active: Yes, but rarely Patient concerns for STD exposure: No. OB History T2 L2 SAB0 IAB0 Ectopic0 Multiple0 Live Births2 Risk Modeler History LMP: 08/25/2022, Having periods Age at Menarche: 13 Age at First : Age at Menopause: Risk Modeler History Comments: Sexual Activity: Yes; Male Contraception: Pill PAST MEDICAL HISTORY Diagnosis Date Neurocardiogenic syncope have seizures if syncopal Placental abruption depression Thyroid disease PAST SURGICAL HISTORY Procedure Laterality Date SECTION HX 2016,2018, 2019 TONSILLECTOMY AND ADENOIDECTOMY HX FAMILY HISTORY Problem Relation Age of Onset other (bi polar) Mother Colon Cancer Father Prostate Cancer Father Colon Cancer Paternal Grandfather SOCIAL HISTORY Social History Tobacco Use Smoking status: Never Smokeless tobacco: Never Vaping Use Vaping Use: Never used Substance Use Topics Alcohol use: Yes Comment: socially Drug use: Never REVIEW OF SYSTEMS Abdomen: No abdominal pain, nausea, vomiting, diarrhea, or constipation. No bloating, early satiety, indigestion, or increased flatulence. Bladder: No dysuria, gross hematuria, urinary frequency, urinary urgency, or incontinence. Breast: No breast lumps, nipple d/c, overlying skin changes, redness or skin retraction. Complaint of pain in left breast Allergies and current medication updated:Yes EXAM: BP 124/78 Ht 5' 7 (1.70m) Wt 170 lb (77.1kg) LMP 08/25/2022 BMI 26.62 kg/(m^2). GENERAL: pleasant, female in no apparent distress HEENT: Normocephalic, atraumatic, mucus membranes moist, and no lesions NECK: Supple, full range of motion, no adenopathy, and thyroid normal DERMATOLOGY: Normal, without lesions, non-icteric, and non-hirsute BREAST: soft, non-tender, symmetric, no dominant mass, normal nipple-areolar complex, no lymphadenopathy, and no nipple discharge CHEST: Normal inspiratory effort ABDOMEN: soft, non-tender, and no masses PELVIC: external genitalia normal, normal Bartholin's glands, urethra, [place] Blank's glands, no vulvar lesions, no cervical lesions, good vaginal support, physiologic discharge present, normal appearing perineal body and perianal region BIMANUAL: uterus normal size, shape and consistency, no adnexal masses, and non-tender RECTOVAGINAL: deferred. NEURO: alert and oriented x3,exam grossly non-focal EXTREMITIES: normal ASSESSMENT/PLAN: 1) Health maintenance: Pap done with HPV. Nutrition, exercise and routine health maintenance exams reviewed. Calcium/Vitamin D supplementation information provided. 2) Contraception: combined hormonal contraceptives. Contraceptive options reviewed and information provided. 3) STD screening: Declined STD check. 4) Left breast pain- diagnostic imaging ordered 5) Follow up one year or sooner as needed Fabi Elaine MD documented in this encounter [facility] 09-21-2022 Nurse Note Commodity Manager offered: Patient declines. documented in this encounter [facility] 06-27-2022 Miscellaneous Notes Refill request for OCP's Last Rx given 07/26/2021 LEANDRO 07/26/2021 NOV 07/31/2022 Thank you, Regina Phillips LPN documented in this encounter [facility] 01-11-2022 Evaluation note Encounter Date Diagnosis Assessment Notes Dec, Seizure disorder (ICD-10 - G40.909) She was officially diagnosed with a seizure disorder by EEG. She voices that this started in her late teens, when her immune system was down or her stress level was up. Her seizures are precipitated by her blood pressure. She has only ever had two seizures awake where she knew she was seizing. The last seizure she had was over 2 years ago. She was told she would grow out of this in her late 20's or with her years. She is not on any medication for her seizures. Dec, Neurocardiogenic syncope (ICD-10 - R55) She voices that when she was dealing with poison krys this summer she went off the Fludricortisone and has not had any issues with her blood pressure. She does have the medication on hand in case needed. If she wakes up and her blood pressure is low she will take the medication because she can tell when she is going to have trouble with this. She would not normally take the medication daily unless she was . She has not used the medicine since this past summer (2021). If she feels she needs to return to taking the medication then she is to call and let me know. Dec, Anxiety (ICD-10 - F41.9) She voices that Dr. Riddle continues to prescribe the Celexa 40 MG for her. She voices that the medication works well for her, but eventually she would like to come off the medicine. She voices that when she is done having children she will consider coming off the medicine. Due to losing a child is very emotional for her so she is not ready to stop the Celexa yet. Dec, Cyst of skin (ICD-10 - L72.9) She did see a lab specialist at [facility] for evaluation and was referred to Dr. Baker in [place] through the [facility], and he removed the lesion from her leg, he advised her it could be one of four things but was not sure. She was put out for the surgery with general anesthesia. It ended up being a cyst that was not attached. She goes tomorrow to see him for a follow up. She was on Keflex after the surgery and had pain in her chest and tightness and felt weird on the medication so she stopped taking it after two days, she did notify his office of this. We discussed that it could have been the way she was positioned on her stomach during the surgery that caused the pain she had and not the medication, and she voices that she also wondered about this and feels that this may indeed have been the case. Likely coincidental that she was on the antibiotic at the same time. Dec, Other I did recommend that she have lab work drawn again at age 34. If she gains or loses weight between now and then and would like to have her thyroid checked she can call for an order. [facility] 10-05-2022 History of Present illness Narrative* Natalya Galdamez LPN - 01/03/2022 12:16 PM EDT Ice pack applied to posterior right knee. [facility] Phone: [phone]) 930-156007-11-2022 Evaluation note* Encounter Date Diagnosis Assessment Notes Treatment Notes Treatment Clinical Notes Sep, Contact dermatitis (ICD-10 - L25.9) [facility] [facility] 06-30-2022 Evaluation note* Encounter Date Diagnosis Assessment Notes Treatment Notes Treatment Clinical Notes Aug, Contact dermatitis (ICD-10 - L25.9) I would like to treat her with Prednisone to help decrease inflammation and calm things down. Side effects/risks/benefits of medication were reviewed. She cannot take any Motrin, Advil or Ibuprofen while she is on the medicine, if needed she can take Tylenol. I explained to her that poison krys is a delayed hypersensitivity reaction and comes from the inside out. Aug, Other She voices that her inspector tubes recommends that she continue with the Fludrocortisone because her blood pressure still runs low. While she is on the steroids she is to hold the medication until the day after she has finished the Prednisone and then she can restart the medication. 1:34 PM - 1:40 PM [facility] Other 04-27-2022 History of Present illness Narrative* Guillermina Raman APRN.THERMAL CUTTING MACHINE OPERATOR - 07/26/2021 9:54 AM EDT Johanny is a 31 year old who presents for an annual gynecologic exam with complaints, low libido. Pt is tearful. Menses: cycles every 28 days. Contraception: combined hormonal contraceptives No migraines with aura, HTN, blood clots, stroke hx. HPV vaccine: No Last Pap: 08/03/2019 normal HPV: 08/04/2019 negative History of abnormal pap: No Last mammogram: never Sexually active: Yes, but rarely Patient concerns for STD exposure: No. OB History T2 L2 SAB0 IAB0 Ectopic0 Multiple0 Live Births2 Risk Modeler History LMP: 07/06/2021, Having periods Age at Menarche: Age at First : Age at Menopause: Risk Modeler History Comments: Sexual Activity: Yes; Male Contraception: Pill PAST MEDICAL HISTORY Diagnosis Date Neurocardiogenic syncope have seizures if syncopal Placental abruption depression Thyroid disease PAST SURGICAL HISTORY Procedure Laterality Date SECTION HX 2016,2018, 2019 TONSILLECTOMY AND ADENOIDECTOMY HX FAMILY HISTORY Problem Relation Age of Onset other (bi polar) Mother Colon Cancer Father Colon Cancer Paternal Grandfather SOCIAL HISTORY Social History Tobacco Use Smoking status: Never Smoker Smokeless tobacco: Never Used Vaping Use Vaping Use: Never used Substance Use Topics Alcohol use: Not Currently Drug use: Never REVIEW OF SYSTEMS Abdomen: No abdominal pain, nausea, vomiting, diarrhea, or constipation. No bloating, early satiety, indigestion, or increased flatulence. Bladder: No dysuria, gross hematuria, urinary frequency, urinary urgency, or incontinence. Breast: No breast lumps, nipple d/c, overlying skin changes, redness or skin retraction. Allergies and current medication updated:Yes EXAM: Ht 5' 7 (1.70m) Wt 165 lb (74.8kg) LMP 07/06/2021 BMI 25.84 kg/(m^2). GENERAL: pleasant, female in no apparent distress HEENT: Normocephalic NECK: full range of motion DERMATOLOGY: Normal BREAST: soft, non-tender, symmetric, no dominant mass, normal nipple-areolar complex, no lymphadenopathy and no nipple discharge CHEST: Normal inspiratory effort ABDOMEN: Deferred PELVIC: external genitalia normal, normal Bartholin's glands, urethra, [place] Blank's glands, no vulvar lesions, no cervical lesions, good vaginal support, physiologic discharge present, normal appearing perineal body and perianal region BIMANUAL: uterus normal size, shape and consistency, no adnexal masses and non-tender RECTOVAGINAL: deferred. NEURO: alert and oriented x3,exam grossly non-focal EXTREMITIES: normal ASSESSMENT/PLAN: 1) Health maintenance: Pap/HPV up to date. guidelines reviewed. Mammogram starting age 40. Nutrition, exercise and routine health maintenance exams reviewed. Low libido- discussed large mental component for females. Rec date nights and alone time with partner. Can be difficult with children and busy work/life schedule. Rec DHEA OTC, changing ocp, or discussing with MD who prescribes celexa for additional options. Consider referral to Dr Padilla if no resolution. 2) Contraception: combined hormonal contraceptives. No contraindications. rx sent x1y. 3) STD screening: Declined STD check. 4) Follow up one year or sooner as needed Guillermina Raman APRN.MEHUL [facility] Nurse Note* Jazmin Leroy Ma - 07/26/2021 9:54 AM EDT Commodity Manager offered: Patient declines. [facility] Evaluation note* Encounter Date Diagnosis Assessment Notes Treatment Notes Treatment Clinical Notes Mar, Cough (ICD-10 - R05.9) Her COVID-19 PCR test was negative on 03-14-21. I did review her chest x-ray results with her which were negative. She voices that everyone in her house was fighting a sinus infection around [facility], but she is the only one who seems to still have a cough. Her chest felt heavy over the past weekend. She had COVID-19 in the summer of 2019 and felt similar to how she feels now. She has not lost her taste or smell. She has an ongoing deep cough and is concerned about this. I explained to her that it can be normal for a cough to last six to eight weeks. After evaluation, she is told that her lung sounds are clear. I suspect she had a viral syndrome and because she had COVID-19 in the past her viral process is taking longer. If the cough is still present in April (2021) then we may need to give medication to help this stop. She is comfortable continuing to monitor. She can take OTC Delsym or Robitussin or Honey. Mar, Hyperlipidemia (ICD-10 - E78.5) Discussed her cholesterol results with patient today. Total is 229. HDL is 69. LDL is 131. Triglycerides are 145. I would like to see her LDL between 70-100. I encouraged her to watch her intake of carbs and sugars. Stay active. She does not smoke. Mar, Weight loss (ICD-10 - R63.4) She has lost 1 pound since last seen. Her TSH is 2.37 which is normal. She voices that she used to be a regular runner but since having children she has not been running. She would like to return to running in the summer but due to having COVID-19 and her current cough she isn't sure if she will be able to run like she used to. She can work into this slowly and see how she does. I do not want her to do this until early summer 2021. She could start with a couch to [employer] program. Mar, Cyst of skin (ICD-10 - L72.9) Noted on back of right knee. Either a cyst or dermatofibroma. She voices that it has been present for one year and has gotten larger. If it is a dermatofibroma it will get larger any time it is damaged, such as being knicked after shaving. She can see a lab specialist or a plastic surgeon for evaluation if she would like to have this removed. This does not bleed on it's own. It will not likely resolve on it's own. She is going to think about who she would like to see. She can call if she needs a referral. [employer] Other 07-31-2020 History of Past illness Narrative* Problem Noted Date Resolved Date Lab test positive for detection of COVID-19 viru s 10/30/2019 03/22/2020 Overview: 10/25 Previous delivery affecting 0 07/30/2019 03/22/2020 Overview: x2 Plan is for rpt at 37 weeks due to IUFD Hx of preeclampsia, prior , currently p regnant 07/30/2019 03/22/2020 Overview: Low dose asa 12 weeks History of IUFD 07/30/2019 03/22/2020 Overview: Abruption noted in op note. Normal eval after. Autopsy not done. MFM consult documented as of this encounter (statuses as of 07/26/2021) [facility] History of Past illness Narrative* Problem Noted Date Resolved Date Lab test positive for detection of COVID-19 viru s 10/30/2019 03/22/2020 Overview: 10/25 Previous delivery affecting 0 07/30/2019 03/22/2020 Overview: x2 Plan is for rpt at 37 weeks due to IUFD Hx of preeclampsia, prior , currently p regnant 07/30/2019 03/22/2020 Overview: Low dose asa 12 weeks History of IUFD 07/30/2019 03/22/2020 Overview: Abruption noted in op note. Normal eval after. Autopsy not done. MFM consult documented as of this encounter (statuses as of 06/27/2022) [facility] History of Past illness Narrative* Problem Noted Date Resolved Date Lab test positive for detection of COVID-19 viru s 10/30/2019 03/22/2020 Overview: 10/25 Previous delivery affecting 0 07/30/2019 03/22/2020 Overview: x2 Plan is for rpt at 37 weeks due to IUFD Hx of preeclampsia, prior , currently p regnant 07/30/2019 03/22/2020 Overview: Low dose asa 12 weeks History of IUFD 07/30/2019 03/22/2020 Overview: Abruption noted in op note. Normal eval after. Autopsy not done. MFM consult documented as of this encounter (statuses as of 09/21/2022) [facility] History of Past illness Narrative* Problem Noted Date Diagnosed Date Resolved Date Lab test positive for detect ion of COVID-19 virus 10/30/2019 03/22/2020 Overview: 10/25 Previous delivery a ffecting 07/30/2019 03/22/2020 Overview: x2 Plan is for rpt at 37 weeks due to IUFD Hx of preeclampsia, prior pr egnancy, currently 07/30/2019 03/22/2020 Overview: Low dose asa 12 weeks History of IUFD 07/30/2019 03/22/2020 Overview: Abruption noted in op note. Normal eval after. Autopsy not done. MFM consult documented as of this encounter (statuses as of 12/11/2022) [facility] Diagnosis Encounter for gynecological examination (general) (routine) without abnormal findings- Primary Encounter for screening breast examination Oral contraceptive pill surveillance Surveillance of previously prescribed contraceptive pill Low libido Decreased libido documented [facility] Other Evaluation note* Diagnosis Sebaceous cyst documented in this encounter [facility] Work Phone: evaluation note* Diagnosis Encounter for gynecological examination (general) (routine) without abnormal findings- Primary Screening for cervical cancer Screening for malignant neoplasm of the cervix Encounter for screening for human papillomavirus (HPV) Special screening examination for human papillomavirus (HPV) Encounter for surveillance of contraceptive pills Surveillance of previously prescribed contraceptive pill Breast pain, left Mastodynia documented in this encounter [facility] assessment information [facility] Work Phone: Evaluation note* Diagnosis Encounter for gynecological examination (general) (routine) without abnormal findings- Primary documented in this encounter [facility] general Narrative - Reported* Type Description Date Medical History seizures Medical History neurocardiogenic sycope Surgical History 3 C- sections Surgical History tonsils and adenoids removed at age 4 Hospitalization History see above [employer] Other Reason for referral (narrative)* Diagnostic Procedure Only (Routine) - Pending Review Specialty Diagnoses / Procedures Referred By Julienne kearns Referred To Contact [facility] Diagnoses Breast pain, left Procedures US BREAST LTD LEFT US BREAST UNI [place] [address] [place] [address] [facility] [address] [place] [address] Referral ID Status Reason Start Date Expiration Date Visits Requested Visits Authorized [id number] Pending Review Auto-Generat ed Referral 09/21/2022 10/21/2023 1 1 * Diagnostic Procedure Only (Routine) - Pending Review Specialty Diagnoses / Procedures Referred By Julienne kearns Referred To Contact [facility] Diagnoses Breast pain, left Procedures [facility] LEFT DIAGNOSTIC MAMMOGRAPHY COMPUTER-[place]ED [place] [address] [place] [address] [facility] [address] [place] [address] Referral ID Status Reason Start Date Expiration Date Visits Requested Visits Authorized [id number] Pending Review Auto-Generat ed Referral 09/21/2022 10/21/2023 1 1 [facility] Summary Purpose Family History Relationship Condition Age at Onset Recorded Date/T candido father Family history of colon cancer Unknown Malignant neoplasm Unknown family member Unknown Advance Directives Documents on File Type Date Recorded Patient Multiple Games Dealer Expl anation Advance Directive(s) 02/02/2020 11:32 AM Advance Directive(s) 12/25/2019 12:50 PM Advance Directive Response Recorded Date/ Time Advance Directives No February 07, 2021 2:05pm Hospital Course Note HNO ID: [id number] Author: Savannah Kearns (Mehul) Jeanne Service: Obstetrics Author Type: Nurse Practitioner Type: Discharge Summary Filed: 02/12/2020 8:02 AM Note Text: Attestation signed by Ayana Ly at 02/12/2020 11:29 AM Ayana Ly MD DISCHARGE SUMMARY OBSTETRICS PATIENT NAME: Johanny Villegas ADMISSION DATE: 02/10/2020 DISCHARGE DATE: 02/12/2020 Attending Physician: Ayana Ly Code Status: Not on file Treatment Team: Attending Provider: Ayana Ly Maternal Obstetric Provider: Ayana Ly Reason for Hospitalization: Intrauterine . Active Problems: Previous delivery affecting Resolved Problems: * No resolved hospital problems. * PROCEDURES/SURGERY DURING HOSPITALIZATION: Delivery Summary: Karli Villegas [[id number]] Delivery Information: Delivery Date: (more content not included)... Note HNO ID: [id number] Author: Nabeel Montoya I Service: ? Author Type: Anesthesiologist Type: Anesthesia Procedure Notes Filed: 02/10/2020 11:50 AM Note Text: ANESTHESIOLOGY PROCEDURE NOTE Spinal Block General Information Procedure Start Time/Medication Administration: 02/10/2020 10:03 AM Patient location during procedure: LANDD room Timeout Performed Pre-procedure: timeout performed Consent Obtained: Yes Patient identity confirmed: arm band, care outreach team member and patient Reason for Block: primary surgical anesthetic Staffing Anesthesiologist: Jose Montoya I CAA: Maggie Malik (Aa) Performed by: SILVER Preparation Sterility Preparation: hand hygiene performed prior to procedure, surgical cap used, mask used, sterile drape used during line insertion, skin prep agent completely dried prior to procedure Site Prep: Betadine Procedure Details Patient Position: sitting Ultrasound Guided: No Monitoring: Pulse Ox and NIBP Approach: Midline Location: L3-4 Injection Technique: single-shot Needle Needle Type: p (more content not included)... Note HNO ID: [id number] Author: Lino Ly Service: Gynecology Author Type: Physician Type: LANDD Delivery Note Filed: 02/10/2020 11:03 AM Note Text: OBSTETRICS - BRIEF OPERATIVE NOTE DELIVERY SUMMARY: Log ID: [id number] Surgery Date: 02/10/2020 Incision/Procedure Start Time: 10:15 AM Incision Close/Procedure End Time: Gestational Age at Delivery: 37w0d Primary Reason for Delivery Today: Prior Intrauterine Demise Additional Clinical Indicators for Delivery: Scheduled Cesearean Section Indication for : Additional Pre-Op Details (if applicable): previous x 2 Postop Diagnosis: Same as pre-op diagnosis Surgeon(s) and Multiple Games Dealer(s): Surgeon(s) and Role: * Ayana Ly - Primary Physician Multiple Games Dealer: Chema Keys Procedures and Anesthesia: Procedure(s) and Anesthesia Type: * SECTION REPEAT - Spinal Information for the patient's : Karli Villegas [[id number]] Type: , Low Transverse Categorization: Repeat Ope (more content not included)... Procedure Findings Note HNO ID: [id number] Author: Nabeel Montoya I Service: ? Author Type: Anesthesiologist Type: Anesthesia Procedure Notes Filed: 02/10/2020 11:50 AM Note Text: ANESTHESIOLOGY PROCEDURE NOTE Spinal Block General Information Procedure Start Time/Medication Administration: 02/10/2020 10:03 AM Patient location during procedure: LANDD room Timeout Performed Pre-procedure: timeout performed Consent Obtained: Yes Patient identity confirmed: arm band, care outreach team member and patient Reason for Block: primary surgical anesthetic Staffing Anesthesiologist: Jose Montoya I CAA: Maggie Malik (Aa) Performed by: SILVER Preparation Sterility Preparation: hand hygiene performed prior to procedure, surgical cap used, mask used, sterile drape used during line insertion, skin prep agent completely dried prior to procedure Site Prep: Betadine Procedure Details Patient Position: sitting Ultrasound Guided: No Monitoring: Pulse Ox and NIBP Approach: Midline Location: L3-4 Injection Technique: single-shot Needle Needle Type: p (more content not included)... Note HNO ID: [id number] Author: Lino Ly Service: Gynecology Author Type: Physician Type: LANDD Delivery Note Filed: 02/10/2020 11:03 AM Note Text: OBSTETRICS - BRIEF OPERATIVE NOTE DELIVERY SUMMARY: Log ID: [id number] Surgery Date: 02/10/2020 Incision/Procedure Start Time: 10:15 AM Incision Close/Procedure End Time: Gestational Age at Delivery: 37w0d Primary Reason for Delivery Today: Prior Intrauterine Demise Additional Clinical Indicators for Delivery: Scheduled Cesearean Section Indication for : Additional Pre-Op Details (if applicable): previous x 2 Postop Diagnosis: Same as pre-op diagnosis Surgeon(s) and Multiple Games Dealer(s): Surgeon(s) and Role: * Ayana Ly - Primary Physician Multiple Games Dealer: Chema Keys Procedures and Anesthesia: Procedure(s) and Anesthesia Type: * SECTION REPEAT - Spinal Information for the patient's : Karli Villegas [[id number]] Type: , Low Transverse Categorization: Repeat Ope (more content not included)... Chief Complaint and Reason for Visit Chief Complaint Rash, exposed to poi son krys Additional Source Comments INFORMATION SOURCE (unrecogn ized section and content) DATE CREATED AUTHOR 08/18/2018 [facility] DATE CREATED AUTHOR AUTHOR'S ORGANIZ ATION 04/11/2019 [facility] DATE CREATED AUTHOR AUTHOR'S ORGANIZ ATION 02/16/2020 [facility] DATE CREATED AUTHOR AUTHOR'S ORGANIZ ATION 03/19/2021 [facility] DATE CREATED AUTHOR AUTHOR'S ORGANIZ ATION 04/25/2021 [facility] DATE CREATED AUTHOR AUTHOR'S ORGANIZ ATION 01/02/2022 [facility] DATE CREATED AUTHOR AUTHOR'S ORGANIZ ATION 01/04/2022 [facility] DATE CREATED AUTHOR AUTHOR'S ORGANIZ ATION 10/01/2022 [facility] Source Comments (unrecognize d section and content) In the event this informatio n is protected by the Federal Confidentiality of Alcohol and Drug Abuse Patient Records regulations: The Federal rules restrict any use of the information to criminally investigate or prosecute any alcohol or drug abuse patient.[facility] the event this information is protected by the Federal Confidentiality of Alcohol and Drug Abuse Patient Records regulations: The Federal rules restrict any use of the information to criminally investigate or prosecute any alcohol or drug abuse patient.[facility] the event this information is protected by the Federal Confidentiality of Alcohol and Drug Abuse Patient Records regulations: The Federal rules restrict any use of the information to criminally investigate or prosecute any alcohol or drug abuse patient.[facility] the event this information is protected by the Federal Confidentiality of Alcohol and Drug Abuse Patient Records regulations: The Federal rules restrict any use of the information to criminally investigate or prosecute any alcohol or drug abuse patient.[facility] the event this information is protected by the Federal Confidentiality of Alcohol and Drug Abuse Patient Records regulations: The Federal rules restrict any use of the information to criminally investigate or prosecute any alcohol or drug abuse patient.[facility] the event this information is protected by the Federal Confidentiality of Alcohol and Drug Abuse Patient Records regulations: The Federal rules restrict any use of the information to criminally investigate or prosecute any alcohol or drug abuse patient.[facility] the event this information is protected by the Federal Confidentiality of Alcohol and Drug Abuse Patient Records regulations: The Federal rules restrict any use of the information to criminally investigate or prosecute any alcohol or drug abuse patient.[facility] Reason for Visit (unrecogniz ed section and content) Reason Comments Yearly Exam 07/2019 pap & hpv NEG Specialty Diagnoses / Procedures Referred By Contac t Referred To Contact Diagnoses Sebaceous cyst SEBACEOUS CYST Procedures SC BX LOW LEG SOFT TISSUE,DEEP EXCISION OF RIGHT POSTERIOR KNEE MASS WITH COMPLEX CLOSURE 1 HOUR ([facility]) Yamilex Acevedo MD [address] [place] [address] [facility] [address] [place] [address] Referral ID Status Reason Start Date Expiration Date Visits Re quested Visits Authorized [id number] 1 1 Reason Comments Refill Request Reason Comments Yearly Exam Breast Problem Left breast pain on and off for a couple of months --last pap--07/2019--pap and hpv was neg Reason Comments Yearly Exam 08/2022 pap & hpv NEG Scheduled Active and Recently Administ ered Medications (unrecognized section and content) Medication Order 01/01/2022 01/02/2022 01/03/2022 ceFAZolin (ANCEF) 2000 mg in dextrose 5 % 100 mL IVPB (COMPLETED) 2,000 mg, IntraVENous, ACCOUNTING PRACTICE MANAGER TO O.R., 1 dose, On Sat01/03/22 at 1015, Antimicrobial Indications: Surgical Prophylaxis, Pre-op (day of surgery) 1114 (Given - Provid er: Stiven Duran MD) Continuous Medication Order 01/01/2022 01/02/2022 01/03/2022 lactated ringers infusion (CANCELED) IntraVENous, at 100 mL/hr, CONTINUOUS, Starting on Sat01/03/22 at 1015, Pre-op (day of surgery) 1102 (New Bag - Prov ider: Stiven Duran MD) PRN Medication Order 01/01/2022 01/02/2022 01/03/2022 lidocaine-EPINEPHrine 1 %-[id number] injection (CANCELED) PRN, Starting on Sat01/03/22 at 1116, Until Sat01/03/22 at 1148, Intra-op 1116 (Given - Provid er: Yamilex Acevedo MD - Comment: injected into op site) sodium chloride 0.9 % irrigation (CANCELED) CONTINUOUS PRN, Starting on Sat01/03/22 at 1119, Intra-op 1119 (New Bag - Prov ider: Yamilex Acevedo MD) Care Teams (unrecognized sec tion and content) Cafeteria Director Relationship Specialty Start Date End Date Irina Jimenez DO [facility] [place] [address] PCP - General Family Medicine 01/02/22 Team Status: Active Member Role Status Dates Irina Jimenez DO Primary Care Provider Active Team Status: Active Member Role Status Dates Elizabeth Gao APRN [employer] Primary Care Provider Active Start: September 24, 2023 Lety Batista MD Attending Provider Active St art: September 24, 2023 Team Status: Inactive Member Role Status Dates Betzaida Ross APRN Attending Provider Active Start: October 16, 2023 End: October 16, 2023 Irina Jimenez DO Primary Care Provider Active S tart: October 16, 2023 End: October 16, 2023 Goals (unrecognized section and content) Goals may be documented in a n alternate section FOR RECORDS PERTAINING TO PATIENTS WHO ARE OR HAVE BEEN ENROLLED IN A CHEMICAL DEPENDENCY/SUBSTANCEABUSE PROGRAM, SOME INFORMATION MAY BE OMITTED. This clinical summary was aggregated from multiple sources. Caution should be exercised in using it in the provision of clinical care. This summary normalizes information from multiple sources, and as a consequence, information in this document may materially change the coding, format and clinical context of patient data. In addition, data may be omitted in some cases. CLINICAL DECISIONS SHOULD BE BASED ON THE PRIMARY CLINICAL RECORDS. [facility] [employer] [facility]. provides no warranty or guarantee of the accuracy or completeness of information in this document.
== END 2024-02-25 14:35 | disposition home or self-care (01) ==
LOC: RAD 14:35
PROVIDERS: PCP Family Medicine; Visit Provider Podiatrist Foot & Ankle Surgery
DX: M79.671 Pain in right foot (principal)
CPT/HCPCS: 73630

== ENCOUNTER 2024-04-03 08:00 | Outpatient (OUT) | payer BC, SELFPAY ==
--- NOTE | 2024-04-03 08:03 | CT_ITS ---
The [address] [address] Patient Name: JAMES VILLEGAS MRN: [id number] date: 1990 Sex: F Assigned Patient Location: CT Current Patient Location: CT Accession/Order Number: [id number] Exam Date: 04/03/2024 08:05 Report Date: 04/03/2024 14:13 At the request of: MILTON BURT Procedure: CT foot RT wo con EXAMINATION: CT foot RT wo con HISTORY: Hallux Rigidus COMPARISON: No relevant comparison available. TECHNIQUE: Multi-planar CT images were created without IV contrast. Dose reduction techniques were achieved by using automated exposure control and/or adjustment of mA and/or kV according to patient size and/or use of iterative reconstruction technique. FINDINGS: BONES: Small bone fragment identified along the lateral base of the first proximal phalanx likely representing remote injuries. No definite acute fracture or dislocation. No significant degenerative change SOFT TISSUES: Negative. No visible soft tissue swelling. EFFUSION: None visible. OTHER: Negative. CT/CT foot RT wo con IMPRESSION: No acute abnormality and no significant degenerative changes Electronically authenticated by: IRINA MAXWELL Date: 04/03/2024 14:13
--- OUTSIDE RECORDS SUMMARY | 2024-04-03 08:19 | XMS_ITS | CCD ---
Author Organization [facility] Care Team Providers Care Roofing Layer Name Role Phone FELIPE LOWRY Admitting Unavailable [...] chest tightness/ possible? see OV note 10-13-22 Monitor Backlinks Other Medications Current Medications Medication Drug Class(es) [...] glycoprotein 1 IgA Qn (S) <9 0-25 [facility] Comment on above: Result Units: GPI Ig A unitsThe reference interval reflects a 3SD or 99th percentileinterval, which is thought to represent a potentiallyclinically significant result in accordance with theInternational Consensus Statement on the classificationcriteria for definitive antiphospholipid syndrome (APS). JThromb Haem 2006;4:295-306. Beta 2 glycoprotein 1 IgG Ab [Units/volume] in Serumon 09-24-2023 Beta 2 glycoprotein 1 IgG Qn (S) <9 0-20 [facility] Comment on above: Result Units: GPI Ig G unitsThe reference interval reflects a 3SD or 99th percentileinterval, which is thought to represent a potentiallyclinically significant result in accordance with theInternational Consensus Statement on the classificationcriteria for definitive antiphospholipid syndrome (APS). JThromb Haem 2006;4:295-306. Beta 2 glycoprotein 1 IgM Ab [Units/volume] in Serumon 09-24-2023 Beta 2 glycoprotein 1 IgM Qn (S) <9 0-32 [facility] Comment on above: Result Units: GPI Ig M unitsThe reference interval reflects a 3SD or 99th percentileinterval, which is thought to represent a potentiallyclinically significant result in accordance with theInternational Consensus Statement on the classificationcriteria for definitive antiphospholipid syndrome (APS). JThromb Haem 2006;4:295-306.Performed at: [facility] [id number] Director: Guera Patel MD, Phone: [phone] No Panel Informationon 09-23 Miscellaneous Test COMMENT . [place] Comment on above: Test Ordered: [id number] Lupus Anticoagulant CompDilute Prothrombin Time(dPT) 32.0 sec Reference Range: 0.0-47.6dPT Confirm Ratio 1.21 Ratio BN Reference Range: 0.00-1.34Thrombin Time 20.0 sec BN Reference Range: 0.0-23.0PTT-LA 35.5 sec Reference Range: 0.0-43.5dRVVT 32.7 sec Reference Range: 0.0-47.0Lupus Reflex Interpretation Comment: Reference Range: .No lupus anticoagulant was detected.Performed at: [facility] [id number] Director: Guera Patel MD, Phone: [phone] at: [facility] [id number] Director: Corky Samuels PhD, Phone: [phone] CNOVon 09-21-2022 CNOV Office Visit (SRIKANTHSAN ARDOSherrell ) -- MARIOJOHANNY BOYCE ([id number]) 1990 F Date Time Provider Department 09/21/22 9:50 AM FABI ELAINE During your visit today, we recorded the following information about you: Blood pressure Weight Height Last Period 124/78 77.1 kg 1.702 m 08/25/22 Jennifer Hardy Ma 09/21/2022 9:55 AM Signed Accessories Repairer offered: Patient declines. Fabi Elaine MD 09/21/2022 [...] L2 SAB0 IAB0 Ectopic0 Multiple0 Live Births2 Qual Research Manager History LMP: 08/25/2022, Having periods Age at Menarche: 13 Age at First : Age at Menopause: Qual Research Manager History Comments: Sexual Activity: Yes; Male Contraception: [...] external genitalia normal, normal Bartholin's glands, urethra, Nesquehoning's glands, no vulvar lesions, no cervical lesions, [...] [Z30.41] Breast pain, left [N64.4] Order(s):PAP TEST [[id number]] Order #: [id number]. #:[id number] RYAN DIAGNOSTIC LEFT [[id number]] Order #: [id number] FUTURE US BREAST LTD LEFT [[id number]] Order #: [id number] FUTURE Drospirenone-Ethinyl Estradiol (CHER) 3-0.03 mg per tabletTake 1 tablet by mouth once daily.Disp: 84 tabletRf (more content not included)... Normal [facility] HPV W/GENOTYPE THIN PREPon 0 09-21-2022 HPV 16 Ag Ql (Unsp spec) Negative Normal Negative for HPV DNA high risk type 16 by PCR [facility] Comment on above: Order Comment: Speci men Type: FLUID SPECIMEN Ordering Facility: [facility] Address: [address] [place] [address] Performed By: #### H PVHRT #### [facility] CLIA [id number] [address] [place] [address] [place] HPV 18 Ag Ql (Unsp spec) Negative Normal Negative for HPV DNA high risk type 18 by PCR [facility] Comment on above: Order Comment: Speci men Type: FLUID SPECIMEN Ordering Facility: [facility] Address: [address] [place] [address] Performed By: #### H PVHRT #### [facility] CLIA [id number] [address] [place] [address] [place] HPV 31+33+35+39+45+51+ 52+56+58+59+66+68 DNA CARIN+probe Ql (Cvx) Negative for HPV DNA high risk types: 31,33,35,39,45,51,52,56,58 ,59,66,68 by PCR. Normal Negative for HPV DNA high risk types: 31,33,35,39,4 5,51,52,56,58 ,59,66,68 by PCR. [facility] Comment on above: Order Comment: Speci men Type: FLUID SPECIMEN Ordering Facility: [facility] Address: [address] [place] [address] Performed By: #### H PVHRT #### [facility] CLIA [id number] [address] [place] [address] [place] PAP TESTon 09-21-2022 CASE REPORT Normal [facility] Comment on above: Order Comment: Speci men Type: FLUID SPECIMEN Ordering Facility: [facility] Address: [address] [place] [address] Result Comment: Gyne cologic Cytology Report Case: [id number] Authorizing Provider: Fabi Elaine MD Collected: 09/21/2022 10:33 AM Ordering Location: Obstetrics/Gynecology Received: 09/21/2022 01:09 PM First Screen: DELVIS Winn, ASCP Specimen: Pap Test, ThinPrep, Cervix Performed By: #### L [id number] #### [facility] CLIA [id number] [address] [place] [address] [place] CLINICAL HISTORY, CYTOLOGY, DRONE OPERATOR Routine Exam Normal [facility] Comment on above: Order Comment: Speci men Type: FLUID SPECIMEN Ordering Facility: [facility] Address: [address] [place] [address] Performed By: #### L [id number] #### [facility] CLIA [id number] [address] [place] [address] [place] CYTOLOGY INTERPRETATION PAP Normal [facility] Comment on above: Order Comment: Speci men Type: FLUID SPECIMEN Ordering Facility: [facility] Address: [address] [place] [address] Result Comment: Nega tive for Intraepithelial lesion or malignancy. Performed By: #### L [id number] #### [facility] CLIA [id number] [address] [id number] [place] FINAL DIAGNOSIS A - Cervix Normal [facility] Comment on above: Order Comment: Speci men Type: FLUID SPECIMEN Ordering Facility: [facility] Address: [address] Result Comment: Sati sfactory for interpretation Negative for Intraepithelial lesion or malignancy. Performed By: #### L [id number] #### [facility] CLIA [id number] [address] STATES OF [facility] FIN[facility] PERFORM[facility] LAB Normal [facility] Comment on above: Order Comment: Speci men Type: FLUID SPECIMEN Ordering Facility: [facility] Address: [address] [place] [place] [address] Result Comment: Tech nical component, repack room worker screening performed at [facility], [facility] [place] [address] CLIA# [id number] Diagnostic interpretation performed at [facility], [address] [facility] [place] [address] CLIA# [id number] Copper Roller Handler Printing: Alessio Vincent M.D. Performed By: #### L [id number] #### [facility] CLIA [id number] [address] [place], [place] [id number] [place] HPV REFLEX Auto HPV Normal [facility] Comment on above: Order Comment: Speci men Type: FLUID SPECIMEN Ordering Facility: [facility] Address: [address] Performed By: #### L [id number] #### [facility] CLIA [id number] [address] [place] [address] [place] LMP 08/25/2022 Normal [facility] Comment on above: Order Comment: Speci men Type: FLUID SPECIMEN Ordering Facility: [facility] Address: [address] Performed By: #### L [id number] #### [facility] CLIA [id number] [address] [place] [address] [place] PAP DISCLAIMER COMMENT The Pap Smear is a screening test for cervical cancer. False negative results occur with all screening tests, emphasizing the need for rescreening at recommended intervals, and clinical correlation. Normal [facility] Comment on above: Order Comment: Speci men Type: FLUID SPECIMEN Ordering Facility: [facility] Address: [address] [place] [address] Performed By: #### L [id number] #### [facility] CLIA [id number] [address] [place] [address] [place] PAP INFO PRINT PRESS OPERATOR COMMENT This specimen has be en analyzed by the ThinPrep Imaging System, an automated imaging and review system, which assists the laboratory in evaluating cells on ThinPrep Pap tests. Following automated imaging, selected bermudez from every slide are reviewed by a repack room worker. Normal [facility] Comment on above: Order Comment: Speci men Type: FLUID SPECIMEN Ordering Facility: [facility] Address: [address] [place] [address] Performed By: #### L [id number] #### [facility] CLIA [id number] [address] [place] [address] OPERATIVE REPORTon 2 [place] [address] OPERATIVE REPORT PATIENT NAME: JOHANNY VILLEGAS : 1990 MED REC NO: [id number] ROOM: ACCOUNT NO: [id number] ADMIT DATE: 01/03/2022 PROVIDER: Yamilex Acevedo M.D. DATE OF PROCEDURE: 01/03/2022 PREOPERATIVE DIAGNOSIS: Right popliteal cyst. POSTOPERATIVE DIAGNOSIS: Right popliteal cyst. OPERATION PERFORMED: Excision of right popliteal cyst of 3.2 cm with complex closure. ATTENDING SURGEON: Yamilex Acevedo MD PRINCIPAL BIOSTATISTICIAN: Palmira Murphy CNP ANESTHESIA: General endotracheal anesthesia. [...] with the described procedure. Please note the surgical coder was utilized for all portions of the [...] no complications. YAMILEX ACEVEDO M.D. [id number] Doc#: [id number] CC: Normal [facility] POC UR-QUALon Beta HCG ( test) Ql (U) Negative Negative [employer] Phone: Lot Number [id number] [employer] Phone: Negative QC Pass/Fail Pass [employer] Phone: Positive QC Pass/Fail Pass [employer] Phone: [employer] Phone: CBC With Platelet and Differ entialon 12-29-2021 Basophils (Bld) [#/Vol] 0.0 10*3/uL Normal 0.0-0.2 [facility] Comment on above: Performed By: #### C BCWD #### [facility] [address] [place] [address] Basophils/100 WBC (Bld) 0.5 % Normal [facility] Comment on above: Performed By: #### C BCWD #### [facility] [address] [place] [address] Eosinophils (Bld) [#/Vol] 0.1 10*3/uL Normal 0.0-0.7 [facility] Comment on above: Performed By: #### C BCWD #### [facility] [address] [place] [address] Eosinophils/100 WBC (Bld) 1.1 % Normal [facility] Comment on above: Performed By: #### C BCWD #### [facility] [address] [place] [address] Erythrocyte distribution width (RBC) [Ratio] 12.7 % Normal 11.5-14.5 [facility] Comment on above: Performed By: #### C BCWD #### [facility] [address] [place] [address] Hematocrit (Bld) [Volume fraction] 41.0 % Normal 37.0-47.0 [facility] Comment on above: Performed By: #### C BCWD #### [facility] [address] [place] [address] Hemoglobin (Bld) [Mass/Vol] 13.7 g/dL Normal 12.0-16.0 [facility] Comment on above: Performed By: #### C BCWD #### [facility] [address] [place] [address] Lymphocytes (Bld) [#/Vol] 1.6 10*3/uL Normal 1.0-4.8 [facility] Comment on above: Performed By: #### C BCWD #### [facility] [address] [place] [address] Lymphocytes/100 WBC (Bld) 33.0 % Normal [facility] Comment on above: Performed By: #### C BCWD #### [facility] [address] [place] [address] MCH (RBC) [Entitic mass] 31.6 pg Critically high 27.0-31.3 [facility] Comment on above: Performed By: #### C BCWD #### [facility] [address] [place] [address] MCHC 33.3 % Normal 33.0-37.0 [facility] Comment on above: Performed By: #### C BCWD #### [facility] [address] [place] [address] MCV (RBC) [Entitic vol] 94.9 fL Normal 82.0-100.0 [facility] Comment on above: Performed By: #### C BCWD #### [facility] [address] [place] [address] Monocytes (Bld) [#/Vol] 0.4 10*3/uL Normal 0.2-0.8 [facility] Comment on above: Performed By: #### C BCWD #### [facility] [address] [place] [address] Monocytes/100 WBC (Bld) 8.5 % Normal [facility] Comment on above: Performed By: #### C BCWD #### [facility] [address] [place] [address] Neutrophils (Bld) [#/Vol] 2.7 10*3/uL Normal 1.4-6.5 [facility] Comment on above: Performed By: #### C BCWD #### [facility] [address] [place] [address] Neutrophils/100 WBC (Bld) 56.9 % Normal [facility] Comment on above: Performed By: #### C BCWD #### [facility] [address] [place] [address] Platelets (Bld) [#/Vol] 244 10*3/uL Normal 130-400 [facility] Comment on above: Performed By: #### C BCWD #### [facility] [address] [place] [address] RBC (Bld) [#/Vol] 4.32 10*6/uL Normal 4.20-5.40 [facility] Comment on above: Performed By: #### C BCWD #### [facility] [address] [place] [address] WBC (Bld) [#/Vol] 4.7 10*3/uL Low 4.8-10.8 [facility] Comment on above: Performed By: #### C BCWD #### [facility] [address] [place] [address] Covid-19 PCR (CVDTB)on 03-01 SARS-CoV-2 (COVID-19) RNA CARIN+probe Ql (Unsp spec) Not detected Normal NOT DETECTED [facility] Comment on above: Result Comment: This test is not yet approved or cleared by the [place] FDA. When there are no FDA-approved or cleared tests available, and other criteria are met, FDA can make tests available under an emergency access mechanism called an Emergency Use Authorization (EUA). The EUA for this test is supported by the [place] of Health and Human Service's (HHS's) declaration [...] SARS-CoV-2. Performed By: #### C VDTBH #### [facility] [address] [place] [address] Dr. Galen Kauffman XR CHEST 2 Von [...] IRINA MAXWELL Date: 2021-03-14 12:02 Normal [facility] Complete Blood Count Auto Di ffon 02-04-2021 Basophils (Bld) [#/Vol] 0.0 10*3/uL Normal 0.0-0.2 [facility] Comment on above: Result Comment: PERF ORMED BY: [facility] [address] [place] [address] PATHOLOGIST LEGAL SUPPORT ANALYST KIMMIE SANDOVAL M.D. Performed By: #### U A, TSH3, CBC, CMP, LIPID #### [address] Basophils/100 WBC (Bld) 0.5 % Normal . [facility] Comment on above: Performed By: #### U A, TSH3, CBC, CMP, LIPID #### [address] Eosinophils (Bld) [#/Vol] 0.1 10*3/uL Normal 0.0-0.45 [facility] Comment on above: Performed By: #### U A, TSH3, CBC, CMP, LIPID #### [address] Eosinophils/100 WBC (Bld) 1.7 % Normal . [facility] Comment on above: Performed By: #### U A, TSH3, CBC, CMP, LIPID #### [address] Erythrocyte distribution width (RBC) [Ratio] 12.8 % Normal 11.9-15.3 [facility] Comment on above: Performed By: #### U A, TSH3, CBC, CMP, LIPID #### [address] Hematocrit (Bld) [Volume fraction] 40.1 % Normal 34.0-46.4 [facility] Comment on above: Performed By: #### U A, TSH3, CBC, CMP, LIPID #### [address] Hemoglobin (Bld) [Mass/Vol] 13.4 g/dL Normal 11.8-15.4 [facility] Comment on above: Performed By: #### U A, TSH3, CBC, CMP, LIPID #### [address] Lymphocytes (Bld) [#/Vol] 1.2 10*3/uL Normal 1.00-4.8 [facility] Comment on above: Performed By: #### U A, TSH3, CBC, CMP, LIPID #### [place] [address] [place] Lymphocytes/100 WBC (Bld) 25.0 % Normal . [facility] Comment on above: Performed By: #### U A, TSH3, CBC, CMP, LIPID #### [facility] [address] MCH (RBC) [Entitic mass] 31.5 pg Normal 24.7-34.3 [facility] Comment on above: Performed By: #### U A, TSH3, CBC, CMP, LIPID #### [address] MCV (RBC) [Entitic vol] 94.6 fL Normal 80-100 [facility] Comment on above: Performed By: #### U A, TSH3, CBC, CMP, LIPID #### [address] Mean Corpuscular HGB Conc 33.4 g/dL Normal 32.0-35.0 [facility] Comment on above: Performed By: #### U A, TSH3, CBC, CMP, LIPID #### [address] Monocytes (Bld) [#/Vol] 0.4 10*3/uL Normal 0.0-0.8 [facility] Comment on above: Performed By: #### U A, TSH3, CBC, CMP, LIPID #### [place] [address] [place] Monocytes/100 WBC (Bld) 8.8 % Normal . [facility] Comment on above: Performed By: #### U A, TSH3, CBC, CMP, LIPID #### [facility] [address] [place] [address] [place] Neutrophils (Bld) [#/Vol] 3.1 10*3/uL Normal 1.8-7.7 [facility] Comment on above: Performed By: #### U A, TSH3, CBC, CMP, LIPID #### [place] [address] [place] Neutrophils/100 WBC (Bld) 64.0 % Normal . [facility] Comment on above: Performed By: #### U A, TSH3, CBC, CMP, LIPID #### [address] Nucleated RBC/100 WBC (Bld) [Ratio] 0.1 % Normal 0-0.5 [facility] Comment on above: Performed By: #### U A, TSH3, CBC, CMP, LIPID #### [address] Platelet mean volume (Bld) [Entitic vol] 9.6 fL Normal 6.3-10.7 [facility] Comment on above: Performed By: #### U A, TSH3, CBC, CMP, LIPID #### [address] Platelets (Bld) [#/Vol] 226 10*3/uL Normal 150-450 [facility] Comment on above: Performed By: #### U A, TSH3, CBC, CMP, LIPID #### [address] RBC (Bld) [#/Vol] 4.24 10*6/uL Normal 3.60-5.00 [facility] Comment on above: Performed By: #### U A, TSH3, CBC, CMP, LIPID #### [address] WBC (Bld) [#/Vol] 4.8 10*3/uL Normal 4.5-11.0 [place] Comment on above: Performed By: #### U A, TSH3, CBC, CMP, LIPID #### [address] Comprehensive Metabolic Pane kendall 02-04-2021 Albumin [Mass/Vol] 3.8 g/dL Normal 3.2-5.5 [place] Comment on above: Performed By: #### U A, TSH3, CBC, CMP, LIPID #### [address] Albumin/Globulin [Mass ratio] 1.3 {ratio} Normal [facility] Comment on above: Performed By: #### U A, TSH3, CBC, CMP, LIPID #### [address] ALP [Catalytic activity/Vol] 54 U/L Normal 32-92 [facility] Comment on above: Performed By: #### U A, TSH3, CBC, CMP, LIPID #### [address] ALT [Catalytic activity/Vol] 23 U/L Normal 10-60 [facility] Comment on above: Performed By: #### U A, TSH3, CBC, CMP, LIPID #### [address] AST [Catalytic activity/Vol] 19 U/L Normal 10-42 [facility] Comment on above: Performed By: #### U A, TSH3, CBC, CMP, LIPID #### [address] Bilirubin [Mass/Vol] 0.9 mg/dL Normal 0.3-1.2 [facility] Comment on above: Performed By: #### U A, TSH3, CBC, CMP, LIPID #### [address] Calcium [Mass/Vol] 9.0 mg/dL Normal 8.2-10.2 [place] Comment on above: Performed By: #### U A, TSH3, CBC, CMP, LIPID #### [place] [address] [place] Chloride [Moles/Vol] 104 mmol/L Normal 95-114 [facility] Comment on above: Performed By: #### U A, TSH3, CBC, CMP, LIPID #### [place] [address] [place] CO2 [Moles/Vol] 24.5 mmol/L Normal 22.0-30.0 [facility] Comment on above: Performed By: #### U A, TSH3, CBC, CMP, LIPID #### [address] [place] [address] [place] Creatinine [Mass/Vol] 0.90 mg/dL Normal 0.44-1.03 [facility] Comment on above: Performed By: #### U A, TSH3, CBC, CMP, LIPID #### [address] Estimated GFR ( Frieda > 60 Normal [facility] Comment on above: Result Comment: GFR estimated reference range: According to KDOQI guidelines, <60 ml/min/1.73m2 is sufficient to diagnose a patient with chronic kidney disease. Performed By: #### U A, TSH3, CBC, CMP, LIPID #### [address] Estimated GFR (Non- Am > 60 Normal [facility] Comment on above: Performed By: #### U A, TSH3, CBC, CMP, LIPID #### [address] Globulin (S) [Mass/Vol] 2.9 g/dL Normal [facility] Comment on above: Performed By: #### U A, TSH3, CBC, CMP, LIPID #### [address] Glucose [Mass/Vol] 94 mg/dL Normal 70-100 [place] Comment on above: Result Comment: [place] Glucose Reference Range is dependent on time and content of last meal. Glucose of more than 200 mg/dL in a nonstressed, ambulatory subject supports the diagnosis of Diabetes Mellitus. ADA recommended reference range Performed By: #### U A, TSH3, CBC, CMP, LIPID #### [address] Potassium [Moles/Vol] 4.1 mmol/L Normal 3.5-5.1 [facility] Comment on above: Performed By: #### U A, TSH3, CBC, CMP, LIPID #### [address] Protein [Mass/Vol] 6.7 g/dL Normal 6.1-7.9 [place] Comment on above: Performed By: #### U A, TSH3, CBC, CMP, LIPID #### [facility] [address] Sodium [Moles/Vol] 137 mmol/L Normal 136-146 [place] Comment on above: Performed By: #### U A, TSH3, CBC, CMP, LIPID #### [facility] [address] Urea nitrogen [Mass/Vol] 14 mg/dL Normal 9-23 [facility] Comment on above: Performed By: #### U A, TSH3, CBC, CMP, LIPID #### [facility] [address] Lipid Panelon 02-04-2021 Cholesterol [Mass/Vol] 229 mg/dL High 140-200 [facility] Comment on above: Result Comment: Chol less than 200 mg/dl low risk Chol 201-239 mg/dl borderline risk Chol 240 mg/dl and greater high risk Performed By: #### U A, TSH3, CBC, CMP, LIPID #### [facility] [address] Cholesterol in HDL [Mass/Vol] 69 mg/dL Normal 35-85 [facility] Comment on above: Result Comment: HDL CHOL ATP-III CLASSIFICATION Cardiovascular Risk HDL > or equal to 60 mg/dL LOW HDL < 40 mg/dL HIGH Performed By: #### U A, TSH3, CBC, CMP, LIPID #### [facility] [address] Cholesterol.total/ Cholesterol in HDL [Mass ratio] 3.3 {ratio} Normal <5.0 [facility] Comment on above: Performed By: #### U A, TSH3, CBC, CMP, LIPID #### [facility] [address] LDL Cholesterol,Calcul ated 131 mg/dL High 0-100 [facility] Comment on above: Result Comment: LDL ATP III CLASSIFICATION LDL less than 100 mg/dL Optimal LDL 100-129 mg/dL Near or above optimal LDL 130-159 mg/dL Borderline high LDL 160-189 mg/dL High LDL greater than 189 mg/dL Very high Performed By: #### U A, TSH3, CBC, CMP, LIPID #### [facility] [address] Triglyceride w/Reflex 145 mg/dL Normal 35-149 [facility] Comment on above: Result Comment: TRIG ATP III CLASSIFICATION TRIG less than 150 mg/dL Normal TRIG 150-199 mg/dL Borderline high TRIG 200-500 mg/dL High TRIG greater than 500 mg/dL Very high Standard traceable to the Center for Disease Conrtrol and Prevention (CDC) test method. Performed By: #### U A, TSH3, CBC, CMP, LIPID #### [facility] [address] VLDL CHOLESTEROL 29 mg/dL Normal [facility] Comment on above: Performed By: #### U A, TSH3, CBC, CMP, LIPID #### [facility] [address] [address] Thyroid Stimulating Hormoneo n 02-04-2021 TSH Qn 2.37 m[IU]/L Normal 0.45-5.33 [facility] [place] [facility] Comment on above: Result Comment: PERF ORMED BY: [place] [address] PATHOLOGIST LEGAL SUPPORT ANALYST KIMMIE SANDOVAL M.D. Performed By: #### U A, TSH3, CBC, CMP, LIPID #### [facility] [address] Urinalysison 02-04-2021 Appearance (U) Clear Normal Clear [facility] [place] [facility] Comment on above: Order Comment: Name Collection Type:: Clean-Voided Midstream Performed By: #### U A, TSH3, CBC, CMP, LIPID #### [facility] [address] Bilirubin,Urine Negative Normal Negative [facility] [place] [facility] Comment on above: Order Comment: Name Collection Type:: Clean-Voided Midstream Performed By: #### U A, TSH3, CBC, CMP, LIPID #### [facility] [address] [place] [address] [place] Color (U) Yellow Normal Yellow [facility] [place] [facility] Comment on above: Order Comment: Name Collection Type:: Clean-Voided Midstream Performed By: #### U A, TSH3, CBC, CMP, LIPID #### [facility] [address] Glucose Ql (U) Normal Normal Normal [facility] [place] [facility] Comment on above: Order Comment: Name Collection Type:: Clean-Voided Midstream Performed By: #### U A, TSH3, CBC, CMP, LIPID #### [facility] [address] Ketones Ql (U) Negative Normal Negative [facility] [place] [facility] Comment on above: Order Comment: Name Collection Type:: Clean-Voided Midstream Performed By: #### U A, TSH3, CBC, CMP, LIPID #### [address] Leukocyte esterase Test strip Ql (U) Negative Normal Negative [facility] [place] [facility] Comment on above: Order Comment: Name Collection Type:: Clean-Voided Midstream Performed By: #### U A, TSH3, CBC, CMP, LIPID #### [facility] [address] [place] [address] [place] Nitrite,Urine Negative Normal Negative [facility] [place] [facility] Comment on above: Order Comment: Name Collection Type:: Clean-Voided Midstream Performed By: #### U A, TSH3, CBC, CMP, LIPID #### [facility] [address] [place] [address] [place] Occult Blood,Urine Negative Normal Negative [place] Comment on above: Order Comment: Name Collection Type:: Clean-Voided Midstream Result Comment: PERF ORMED BY: [place] [address] PATHOLOGIST LEGAL SUPPORT ANALYST KIMMIE SANDOVAL M.D. Performed By: #### U A, TSH3, CBC, CMP, LIPID #### [facility] [address] [place] [address] [place] pH (U) 6.0 [pH] Normal 5.0-9.0 [facility] [place] [facility] Comment on above: Order Comment: Name Collection Type:: Clean-Voided Midstream Performed By: #### U A, TSH3, CBC, CMP, LIPID #### [facility] [address] Protein,Urine Negative Normal Negative [facility] [place] [facility] Comment on above: Order Comment: Name Collection Type:: Clean-Voided Midstream Performed By: #### U A, TSH3, CBC, CMP, LIPID #### [facility] [address] Specificy [place],Urine 1.026 Normal 1.001-1.030 [facility] [place] [facility] Comment on above: Order Comment: Name Collection Type:: Clean-Voided Midstream Performed By: #### U A, TSH3, CBC, CMP, LIPID #### [facility] [address] Urobilinogen,Urine Normal Normal Normal [place] Comment on above: Order Comment: Name Collection Type:: Clean-Voided Midstream Performed By: #### U A, TSH3, CBC, CMP, LIPID #### [address] Brandan 02-15-2020 CNPN Telephone (LACFV) -- JOHANNY VILLEGAS ([id number]) 1990 F Date Time Provider Department 02/15/20 [...] Encounter Status:Closed by KIRAN ZAMUDIO on 02/15/20 [facility] ANES POSTPROC EVALon 020 ANES POSTPROC EVAL HNO ID: [id number] Author: Jose Montoya I Service: ? Author Type: Anesthesiologist Type: Anesthesia Postprocedure Evaluation Filed: 02/11/2020 9:38 AM Note Text: POST ANESTHESIA EVALUATION NOTE : 1990 Procedure Summary Date: 02/10/20 Room / Location: [place] [address] / OB Anesthesia Start: 955 Anesthesia Stop: [...] SpO2 100 % 02/11/20 0821 Sumser, Girl Johanny [[id number]] Baby Delivery: 02/10/2020 1024 Post Anesthesia Patient [...] February 11, 2020 TIME: 9:37 AM CSN: [id number] [facility] CASE MGT INIT Arturo 2019 CASE MGT INIT POONAM HNO ID: [id number] Author: Vasquez (Sw) [place] Service: ? Author Type: Sales Enablement Lead Type: Care Mgt Initial Assessment Filed: 02/11/2020 2:52 PM Note Text: CARE MANAGEMENT: ASSESSMENT AND DISCHARGE PLAN SERVICE DATE: February 11, 2020 SERVICE TIME: 2:43 PM PRIMARY CARE PHYSICIAN: No primary care provider on file. 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 Crib FREEDOM OF CHOICE EXPLAINED: [place] of Choice Given: No Reason Not Given: [...] Pt reported the following: She lives in [place] with FOB and their 3 year old [...] private insurance and will take baby to [facility] (Dr. Sinha) for pediatric follow up. Pt has a strong support system including friends and family. She reports no additional needs at this time. SW will remain available if additional needs arise. SIGNATURE: JENNY Jeronimo PATIENT NAME: Johanny Villegas DATE: February 11, 2020 TIME: 2:43 PM PAGER/CONTACT #: [phone] Normal [facility] CBCon 02-11-2020 Absolute nRBC <0.01 Normal <0.01 [facility] Comment on above: Performed By: #### C BC ####[place] [id number] [place] [phone] Erythrocyte distribution width (RBC) [Ratio] 13.2 % Normal 11.5-15.0 [facility] Comment on above: Performed By: #### C BC ####[place] [id number] [place], [place] [phone] Hematocrit (Bld) [Volume fraction] 34.1 % Low 36.0-46.0 [facility] Comment on above: Performed By: #### C BC ####[facility] [place], [place] [phone] Hemoglobin (Bld) [Mass/Vol] 11.4 g/dL Low 11.5-15.5 [facility] Comment on above: Performed By: #### C BC ####[place] [phone] MCH (RBC) [Entitic mass] 33.7 pG Normal 26.0-34.0 [facility] Comment on above: Performed By: #### C BC ####[place] [phone] MCHC (RBC) [Mass/Vol] 33.4 g/dL Normal 30.5-36.0 [facility] Comment on above: Performed By: #### C BC ####[place] [phone] MCV (RBC) [Entitic vol] 100.9 fL High 80.0-100.0 [facility] Comment on above: Performed By: #### C BC ####[place] [phone] Platelet mean volume (Bld) [Entitic vol] 10.8 fL Normal 9.0-12.7 [facility] Comment on above: Performed By: #### C BC ####[place] [phone] Platelets (Bld) [#/Vol] 177 10*3/uL Normal 150-400 [facility] Comment on above: Performed By: #### C BC ####[place] [phone] RBC (Bld) [#/Vol] 3.38 10*6/uL Low 3.90-5.20 [facility] Comment on above: Performed By: #### C BC ####[place] [phone] WBC (Bld) [#/Vol] 8.95 10*3/uL Normal 3.70-11.00 [facility] Comment on above: Performed By: #### C BC ####[address] [phone] PLAN OF CAREon 02-11-2020 PLAN OF CARE HNO ID: [id number] Author: Stephanie Lopez (Perioperative Manager) Service: ? Author Type: ? Type: Plan of Care Filed: 02/11/2020 6:03 PM Note Text: PHARMACY BEDSIDE DELIVERY SERVICE Patient Name: Johanny Villegas The marked outpatient medications were Filled at: [facility] and delivered to the patient's bedside to [facility] Medication List START taking these medications acetaminophen [...] Generic drug: aspirin, enteric coated Stephanie Lopez ([employer]) PAGER: [phone] February 11, 2020 6:02 PM [facility] PLAN OF CARE HNO ID: [id number] Author: Stephanie JohnsonARS [employer]) Service: ? Author Type: ? Type: Plan of Care Filed: 02/11/2020 6:02 PM Note Text: Pharmacy Discharge Medication Service: This patient has elected to receive their discharge prescriptions through the [facility] Bedside Prescription Delivery program. The prescriptions are currently being processed. A follow-up note will be entered once the prescriptions have been filled and delivered to the patient. Please contact me with any questions or updates to the patient's discharge medications. Stephanie Lopez ([employer]) DCT Contact Info: [id number] [facility] OF CARE HNO ID: [id number] Author: Stephanie Johnson[employer]) Service: ? Author Type: ? Type: Plan of Care Filed: 02/11/2020 6:02 PM Note Text: [employer] BEDSIDE DELIVERY SURVEY 1. Patient to use [facility] Bedside Delivery - YES Insurance Information as follows: 2. Insurance card on file - YES 3. Credit card for payment - N/A [facility] PROGRESSon 02-11-2020 PROGRESS HNO ID: [id number] Author: Sara Kearns (Gunnar Angel Service: Obstetrics [...] DATE: February 11, 2020 TIME: 8:37 AM [facility] ANES PRE-OPon 02-10-2020 ANES PRE-OP HNO ID: [id number] Author: Maggie Malik (Aa) Service: ? Author Type: Veterans Service Officer Type: Anesthesia Preprocedure Evaluation Filed: 02/10/2020 9:02 AM Note Text: -- Attestation signed by Jose Montoya I at 02/10/2020 10:08 AM Attending Note I have personally performed a face to face assessment of the patient and have reviewed the NEIGHBORHOOD CONSERVATION OFFICER/AA note. My fulton findings include: Assessment/Plan are as documented. Other additions or changes: None Signature: Jose Montoya MD Date: February 10, 2020 Time: 9:30 AM -- OB ANESTHESIA PRE-PROCEDURE ASSESSMENT PATIENT NAME: Johanny Villegas : 1990 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 [facility] CHART REVIEW: ACTIVE PROBLEM LIST Previous [...] Disp: , Rfl: Inpatient medications reviewed in [facility] I have interviewed and examined the patient. I have reviewed the medical record and/or the pre-anesthesia evaluation, pertinent labs, and test results. This contains updated information obtained within 48 hours of Surgery/Procedure. SIGNATURE: SILVER Issa PATIENT NAME: Johanny Villegas DATE: February 10, 2020 TIME: 8:57 AM : 1990 Normal [facility] Blood Gases,Cord,Art (For Fa irview and HIL)on 02-10-2020 Base Deficit 2.3 mmol/L Low 4.4-8.3 [facility] Comment on above: Performed By: #### C OBG, GASCV #### [place] [address] HCO3 (Bld) [Moles/Vol] 25 mmol/L Normal 17-27 [facility] Comment on above: Performed By: #### C OBG, GASCV #### [place] [address] pCO2 54 mm Hg Normal 32-66 [facility] Comment on above: Performed By: #### C OBG, GASCV #### [place] [address] pH (Bld) 7.29 [pH] Normal 7.18-7.38 [facility] Comment on above: Performed By: #### C OBG, GASCV #### [place] [address] Blood Gases,Cord,Venon 02-09 Base Excess Negative Normal [facility] Comment on above: Performed By: #### C OBG, GASCV #### [place] [address] HCO3 (Bld) [Moles/Vol] 23 mmol/L Normal 15-25 [facility] Comment on above: Performed By: #### C OBG, GASCV #### [place] [phone] Oxygen (Bld) [Partial pressure] mm[Hg] High 5.5-30.5 [facility] Comment on above: Performed By: #### C OBG, GASCV #### [place] [phone] pCO2 45 mm Hg Normal 27-49 [facility] Comment on above: Performed By: #### C OBG, GASCV #### [place] [phone] pH (Bld) 7.33 [pH] Normal 7.20-7.40 [facility] Comment on above: Performed By: #### C OBG GASCV #### [place] [phone] CBCon 02-10-2020 Absolute nRBC <0.01 Normal <0.01 [facility] Comment on above: Performed By: #### C BC ####[phone] Erythrocyte distribution width (RBC) [Ratio] 13.0 % Normal 11.5-15.0 [facility] Comment on above: Performed By: #### C BC ####[phone] Hematocrit (Bld) [Volume fraction] 35.4 % Low 36.0-46.0 [facility] Comment on above: Performed By: #### C BC ####[place] [phone] Hemoglobin (Bld) [Mass/Vol] 12.2 g/dL Normal 11.5-15.5 [facility] Comment on above: Performed By: #### C BC ####[place] [phone] MCH (RBC) [Entitic mass] 33.7 pG Normal 26.0-34.0 [facility] Comment on above: Performed By: #### C BC ####[address] [phone] MCHC (RBC) [Mass/Vol] 34.5 g/dL Normal 30.5-36.0 [facility] Comment on above: Performed By: #### C BC ####[facility] [place] [address] [phone] MCV (RBC) [Entitic vol] 97.8 fL Normal 80.0-100.0 [facility] Comment on above: Performed By: #### C BC ####[address] [phone] Platelet mean volume (Bld) [Entitic vol] 11.0 fL Normal 9.0-12.7 [facility] Comment on above: Performed By: #### C BC ####[address] [phone] Platelets (Bld) [#/Vol] 213 10*3/uL Normal 150-400 [facility] Comment on above: Performed By: #### C BC ####[facility] [place] [address] [phone] RBC (Bld) [#/Vol] 3.62 10*6/uL Low 3.90-5.20 [facility] Comment on above: Performed By: #### C BC ####[address] [phone] WBC (Bld) [#/Vol] 7.90 10*3/uL Normal 3.70-11.00 [facility] Comment on above: Performed By: #### C BC ####[facility] [place] [address] [phone] OPERATIVE NOon 02-10-2020 OPERATIVE NO HNO ID: [id number] Author: Ayana Ly Service: Gynecology Author Type: Physician Type: Operative Report Filed: 02/11/2020 12:52 PM Note Text: OBSTETRICS OPERATIVE REPORT - SECTION Log ID: [id number] Surgery Date: 02/10/2020 Incision/Procedure Start Time: 10:15 AM Incision Close/Procedure End Time: 11:09 AM Gestational Age at Delivery: 37w0d Primary Reason for Delivery Today: Prior Intrauterine Demise Additional Clinical Indicators for Delivery: Scheduled Cesearean Section Indication for : Additional Pre-Op Details (if applicable): Prior c/s x2 Postop Diagnosis: Same as pre-op diagnosis Surgeon(s) and Television Inspector(s): Surgeon(s) and Role: * Ayana Ly - Primary Physician Television Inspector: Chema Keys Procedure(s): SECTION REPEAT: 68054 (CPT?) Anesthesia: Spinal Information for the patient's : Karli Villegas [[id number]] Type: , Low Transverse Operative Findings: Weight: [...] February 10, 2020 TIME: 11:05 AM Normal [facility] Pre Delivery T+Son 0 ABO/RH(D) Positive Normal [facility] Comment on above: Performed By: #### P REDEL ####[place] [id number] [place] [phone] CBCon 12-25-2019 Absolute nRBC <0.01 Normal <0.01 [facility] Comment on above: Performed By: #### C BC, CMP #### [place] [phone] Erythrocyte distribution width (RBC) [Ratio] 12.8 % Normal 11.5-15.0 [facility] Comment on above: Performed By: #### C BC, CMP #### [place] [phone] Hematocrit (Bld) [Volume fraction] 34.8 % Low 36.0-46.0 [facility] Comment on above: Performed By: #### C BC, CMP #### [place] [phone] Hemoglobin (Bld) [Mass/Vol] 11.7 g/dL Normal 11.5-15.5 [facility] Comment on above: Performed By: #### C BC, CMP #### [phone] MCH (RBC) [Entitic mass] 33.6 pG Normal 26.0-34.0 [facility] Comment on above: Performed By: #### C BC, CMP #### [phone] MCHC (RBC) [Mass/Vol] 33.6 g/dL Normal 30.5-36.0 [facility] Comment on above: Performed By: #### C BC, CMP #### [place] [phone] MCV (RBC) [Entitic vol] 100.0 fL Normal 80.0-100.0 [facility] Comment on above: Performed By: #### C BC, CMP #### [phone] Platelet mean volume (Bld) [Entitic vol] 10.2 fL Normal 9.0-12.7 [facility] Comment on above: Performed By: #### C BC, CMP #### [phone] Platelets (Bld) [#/Vol] 209 10*3/uL Normal 150-400 [facility] Comment on above: Performed By: #### C BC, CMP #### [place] [phone] RBC (Bld) [#/Vol] 3.48 10*6/uL Low 3.90-5.20 [facility] Comment on above: Performed By: #### C BC, CMP #### [address] [address] WBC (Bld) [#/Vol] 9.95 10*3/uL Normal 3.70-11.00 [facility] Comment on above: Performed By: #### C BC, CMP #### [address] [phone] Comp Metabolic Panelon 12-24 Albumin [Mass/Vol] 3.5 g/dL Normal 3.5-5.0 [facility] Comment on above: Performed By: #### C BC, CMP ####[place] [phone] ALP [Catalytic activity/Vol] 131 U/L High 34-123 [facility] Comment on above: Performed By: #### C BC, CMP ####[place] [phone] ALT [Catalytic activity/Vol] 15 U/L Normal 0-45 [facility] Comment on above: Performed By: #### C BC, CMP ####[place] [phone] Anion gap [Moles/Vol] 11 mmol/L Normal 9-18 [facility] Comment on above: Performed By: #### C BC, CMP ####[place] [phone] AST [Catalytic activity/Vol] 20 U/L Normal 7-40 [facility] Comment on above: Performed By: #### C BC, CMP ####[place] [phone] Bilirubin [Mass/Vol] 0.3 mg/dL Normal 0.2-1.3 [facility] Comment on above: Performed By: #### C BC, CMP ####[place] [phone] Calcium [Mass/Vol] 9.4 mg/dL Normal 8.5-10.5 [facility] Comment on above: Performed By: #### C BC, CMP ####[place] [phone] Chloride [Moles/Vol] 101 mmol/L Normal 98-110 [facility] Comment on above: Performed By: #### C BC, CMP ####[place] [phone] CO2 [Moles/Vol] 22 mmol/L Low 23-32 [facility] Comment on above: Performed By: #### C BC, CMP ####[place] [phone] Creatinine [Mass/Vol] 0.61 mg/dL Low 0.70-1.40 [facility] Comment on above: Performed By: #### C BC, CMP ####[place] [phone] eGFR- Amer. >60 Normal >60 [facility] Comment on above: Performed By: #### C BC, CMP ####[place] [phone] GFR/1.73 sq M predicted among non-blacks MDRD (S/P/Bld) [Vol rate/Area] mL/min/{1.73_m2} Normal >60 [facility] Comment on above: Performed By: #### C BC, CMP ####[place] [phone] Glucose [Mass/Vol] 80 mg/dL Normal 65-100 [facility] Comment on above: Performed By: #### C BC, CMP ####[place] [phone] Potassium [Moles/Vol] 3.8 mmol/L Normal 3.5-5.0 [facility] Comment on above: Performed By: #### C BC, CMP ####[place] [phone] Protein [Mass/Vol] 6.2 g/dL Normal 6.0-8.4 [facility] Comment on above: Performed By: #### C BC, CMP ####[facility] [place], [place] [phone] Sodium [Moles/Vol] 134 mmol/L Normal 132-148 [facility] Comment on above: Performed By: #### C BC, CMP ####[facility] [place], [place] [phone] Urea nitrogen [Mass/Vol] 9 mg/dL Normal 8-25 [facility] Comment on above: Performed By: #### C BC, CMP ####[facility] [place], [place] [phone] HOSPon 12-25-2019 HOSP Patient:Jamie Villegas MRN: Height:5' [...] 35.4 % 02/10/2020 46.0 36.0 Progress Notes ([facility]): Kenny Petty MD 02/08/2020 12:28 PM [...] I SIGNATURE: Kenny Petty MD Progress Notes (DISK SHARPENER [facility]): Lissette Duvall MD 02/05/2020 4:19 PM Signed Patient here for testing due to history IUFD BPP 11/06 See ultrasound for report. Lissette Duvall MD [facility] PROCEDUREon 12-25-2019 PROCEDURE HNO ID: [id number] Author: Harriet JohnsonRn) DARLINE Ronquillo Service: Nursing [...] DATE: December 25, 2019 TIME: 11:56 AM [facility] PROGRESSon 12-25-2019 PROGRESS HNO ID: [id number] Author: Svetlana Lau Service: Obstetrics Author Type: [...] No history of dysuria, frequency or incontinence DRONE OPERATOR: Negative for abnormal vaginal bleeding, abnormal vaginal [...] 25, 2019 TIME: 5:45 PM PAGER/CONTACT #: [facility] PROGRESS HNO ID: [id number] Author: Svetlana Lau Service: Obstetrics Author Type: [...] No history of dysuria, frequency or incontinence DRONE OPERATOR: Negative for abnormal vaginal bleeding, abnormal vaginal [...] 2019 TIME: 5:45 PM PAGER/CONTACT #: Normal [facility] Type and Scr,Prenatlon 04-11 ABO/RH(D) Positive Normal [facility] CORD BLD ABO RH DIRECT COOMB Son 07-30-2018 ABO and Rh group Nom (Bld) Direct Haim Cord Negative ABO RH CORD BLOOD A Rh Negative Normal [facility] Comment on above: Performed By: #### C ORD #### [facility] [address] [place], [place] [address] Yomaira Branham CORD BLOOD PHon 07-29-2018 pH CORD ARTERIAL 6.912 Critically low 7.090-7.390 [facility] Comment on above: Performed By: #### C ORDPH #### [facility] [address] [place], [place] [address] Yomaira Branham pH CORD VENOUS 7.228 Normal 7.190-7.450 [facility] Comment on above: Performed By: #### C ORDPH #### [facility] [address] [place] [phone] Yomaira Branham Vital Signs Date Time Vital Sign Value Performing Clinician Facility 11-28-2023 09:21-0400 Body height 170.2 cm Ayana Ly MD Work Phone: [facility] 11-28-2023 09:21-0400 Body mass index (BMI) [Ratio] 26.24 kg/m2 Ayana Ly MD Work Phone: [facility] 11-28-2023 09:21-0400 Body weight 76 kg Ayana Ly MD Work Phone: [facility] 11-28-2023 09:21-0400 Diastolic blood pressure 72 mm[Hg] Ayana Ly MD Work Phone: [facility] 11-28-2023 09:21-0400 Systolic blood pressure 114 mm[Hg] Ayana Ly MD Work Phone: [facility] 10-16-2023 15:29-0400 Body height 172.72 cm [facility] 10-16-2023 15:29-0400 Body mass index (BMI) [Ratio] 25.8 kg/m2 [facility] [place] [facility] 10-16-2023 15:29-0400 Body temperature 98.8 [degF] [facility] 10-16-2023 15:29-0400 Body weight 77.11 kg [facility] 10-16-2023 15:29-0400 Diastolic blood pressure 70 mm[Hg] [facility] [place] [facility] 10-16-2023 15:29-0400 Heart rate 76 /min [facility] 10-16-2023 15:29-0400 Respiratory rate 16 /min [facility] 10-16-2023 15:29-0400 SaO2% (BldA) [Mass fraction] 98 % [facility] [place] [facility] 10-16-2023 15:29-0400 Systolic blood pressure 112 mm[Hg] [facility] [place] [facility] 09-21-2022 09:52-0400 Body height 170.2 cm Fabi Elaine MD Work Phone: [facility] 09-21-2022 09:52-0400 Body weight 77.11 kg Fabi Elaine MD Work Phone: [facility] 09-21-2022 09:52-0400 Diastolic blood pressure 78 mm[Hg] Fabi Elaine MD Work Phone: [facility] 09-21-2022 09:52-0400 Systolic blood pressure 124 mm[Hg] Fabi Elaine MD Work Phone: [facility] 01-11-2022 11:10-0400 Body height 172.72 cm Irina Jimenez Other [employer] Other 01-11-2022 11:10-0400 Body mass index (BMI) [Ratio] 26.76 kg/m2 Irina Jimenez Other [employer] Other 01-11-2022 11:10-0400 Body temperature 97.9 [degF] Irina Jimenez Other [employer] Other 01-11-2022 11:10-0400 Body weight 79.83 kg Irina Jimenez Other [employer] Other 01-11-2022 11:10-0400 Diastolic blood pressure 68 mm[Hg] Irina Jimenez Other [employer] Other 01-11-2022 11:10-0400 Respiratory rate 18 /min Irina Jimenez Other [employer] Other 01-11-2022 11:10-0400 SaO2% (BldA) [Mass fraction] 98 % Irina Jimenez Other [employer] Other 01-11-2022 11:10-0400 Systolic blood pressure 116 mm[Hg] Irina Jimenez Other [facility] 640 Labs Other 01-03-2022 12:27-0400 Diastolic blood pressure 77 mm[Hg] Yamilex Acevedo MD Work Phone: [email or web address] 01-03-2022 12:27-0400 Heart rate 76 /min Yamilex Acevedo MD Work Phone: [email or web address] 01-03-2022 12:27-0400 Respiratory rate 16 /min Yamilex Acevedo MD Work Phone: [email or web address] 01-03-2022 12:27-0400 SaO2% (BldA) [Mass fraction] 100 % Yamilex Acevedo MD Work Phone: [email or web address] 01-03-2022 12:27-0400 Systolic blood pressure 120 mm[Hg] Yamilex Acevedo MD Work Phone: [email or web address] 01-03-2022 12:09-0400 Body temperature 97.59 [degF] Yamilex Acevedo MD Work Phone: [email or web address] 01-03-2022 09:49-0400 Body height 170.2 cm Yamilex Acevedo MD Work Phone: [email or web address] 01-03-2022 09:49-0400 Body mass index (BMI) [Ratio] 27.41 kg/m2 Yamilex Acevedo MD Work Phone: [email or web address] 01-03-2022 09:49-0400 Body weight 79.38 kg Yamilex Acevedo MD Work Phone: [email or web address] 07-26-2021 09:53-0400 Body height 170.2 cm Guillermina Raman FUEL YARD OPERATOR.MANAGER HEART FAILURE Work Phone: [facility] 07-26-2021 09:53-0400 Body weight 74.84 kg Guillermina Raman FUEL YARD OPERATOR.MANAGER HEART FAILURE Work Phone: [facility] 07-26-2021 09:53-0400 Diastolic blood pressure 68 mm[Hg] Guillermina Fog FUEL YARD OPERATOR.MANAGER HEART FAILURE Work Phone: [facility] 07-26-2021 09:53-0400 Systolic blood pressure 112 mm[Hg] Guillermina Fog FUEL YARD OPERATOR.MANAGER HEART FAILURE Work Phone: [facility] 03-15-2021 16:20-0500 Body height 172.72 cm Irina Jimenez Other [employer] Other 03-15-2021 16:20-0500 Body mass index (BMI) [Ratio] 26.3 kg/m2 Irina Jimenez Other [employer] Other 03-15-2021 16:20-0500 Body temperature 98.5 [degF] Irina Jimenez Other [employer] Other 03-15-2021 16:20-0500 Body weight 78.47 kg Irina Jimenez Other [employer] Other 03-15-2021 16:20-0500 Diastolic blood pressure 70 mm[Hg] Irina Jimenez Other [employer] Other 03-15-2021 16:20-0500 Respiratory rate 18 /min Irina Jimenez Other [employer] Other 03-15-2021 16:20-0500 SaO2% (BldA) [Mass fraction] 98 % Irina Jimenez Other [employer] Other 03-15-2021 16:20-0500 Systolic blood pressure 110 mm[Hg] Irina Jimenez Other [employer] Other Encounters Encounter Date Encounter Type Care [...] encounter status Ayana Ly MD Work Phone: [facility] Work Phone: Start: 10-22-2023 Refill Fabi Elaine MD Work Phone: Obstetrics/Gynecology Comment on above: Refill Request Start: 10-16-2023 End: 10-16-2023 ambulatory [facility] Work Phone: Start: 10-16-2023 End: 10-16-2023 Patient encounter procedure Pending Sale To [facility] Work Phone: Start: 09-24-2023 Non-patient / Non-visit Pending Sale To [facility] Work Phone: Start: 12-10-2022 Refill Guillermina felix APRN.MANAGER HEART FAILURE Work Phone: Obstetrics/Gynecology Comment on above: Refill Request Start: 09-21-2022 End: 09-21-2022 ambulatory FABI ELAINE Facility:[facility] Start: 09-21-2022 End: 09-21-2022 Patient encounter procedure [...] Phone: Obstetrics/Gynecology Start: 06-27-2022 Refill Guillermina felix FUEL YARD OPERATOR.MANAGER HEART FAILURE Work Phone: Obstetrics/Gynecology Comment on above: Refill Request Start: 01-11-2022 End: 01-11-2022 ambulatory Irina Jimenez Other [employer] Other Start: 01-11-2022 Office outpatient vi sit 15 minutes Irina Jimenez [facility] Start: 01-03-2022 End: 01-03-2022 ambulatory YAMILEX ACEVEDO [facility] Start: 01-03-2022 End: 01-03-2022 Subsequent hospital visit by physician Yamilex Acevedo MD Work Phone: [facility] Comment on above: Sebaceous cyst Start: 12-29-2021 Preprocedural examin ation done Yamilex Acevedo MD Work Phone: [facility] Work Phone: Start: 10-26-2021 End: 10-26-2021 ambulatory Irina Jimenez Other [employer] Other Start: 10-26-2021 Telephone encounter Irina Jimenez [facility] Start: 10-09-2021 End: 10-09-2021 ambulatory Irina Jimenez Other [employer] Other Start: 10-09-2021 Telephone encounter Irina Jimenez [facility] Start: 09-28-2021 End: 09-28-2021 ambulatory Irina Jimenez Other [employer] Other Start: 09-28-2021 Telephone encounter Irina Jimenez [facility] Start: 07-26-2021 End: 07-26-2021 Patient encounter procedure Guillermina Raman APRN.MANAGER HEART FAILURE Work Phone: Obstetrics/Gynecology Comment on above: Encounter for gyneco logical examination (general) (routine) without abnormal findings (Primary Dx); Encounter for screening breast examination; Oral contraceptive pill surveillance; Low libido Start: 07-26-2021 End: 07-26-2021 Patient encounter status Guillermina Raman FUEL YARD OPERATOR.MANAGER HEART FAILURE Work Phone: Obstetrics/Gynecology Start: 03-15-2021 End: 03-15-2021 ambulatory Irina Jimenez Other [facility] 640 Labs Other Start: 03-15-2021 Office outpatient vi sit 15 minutes Irina Jimenez [facility] [place] Start: 03-14-2021 End: 03-15-[address] DAISHA RIDDLE Facility:[facility] Start: 07-29-2018 End: 07-29-2018 Evaluation and management of inpatient FELIPE LOWRY Facility:[facility] Procedures Date Procedure Procedure Detail Performing Clinician Start: 01-03-2022 Urine test visual color cmprsn meths Stiven Duran MD Work Phone: Start: 02-10-2020 Antibody screen Comment on above: Performed By: #### P [facility] ####[address] [id number] Start: 07-30-2019 End: 03-22-2020 H/O: section Previous delivery affecting Fabi Elaine MD Work Phone: Start: 04-11-2019 Antibody screen Plan of Treatment Date Care Activity Detail Author Start: 12-31-2029 DTaP/Tdap/Td vaccine (2 - Td or Tdap) DTaP/Tdap/Td vaccine (2 - Td or Tdap) [facility] Start: 12-31-2029 Urine microalbumin profile [facility] Start: 09-22-2027 HPV TESTING HPV TESTING [facility] Start: 09-22-2027 PAP TESTING PAP TESTING [facility] Start: 09-22-2027 Screening for malign ant neoplasm of cervix Cervical Cancer Screening [facility] Start: 12-11-2024 End: 12-11-2024 Patient encounter procedure 12/11/2024 9:00 AM EDT Office Visit Obstetrics/Gynecology [address] [facility] [place] [address] Guillermina Raman, FUEL YARD OPERATOR.MANAGER HEART FAILURE [address] [facility] [place] [address] Annual Obstetrics/Gynecolog y Comment on above: Annual Start: 07-29-2024 HPV TESTING HPV TESTING [facility] Start: 07-29-2024 PAP TESTING PAP TESTING [facility] Start: 12-01-2023 Covid-19 Vaccine ( season) Covid-19 Vaccine ( season) [facility] Start: 12-01-2023 Influenza vaccination Influenza Vacc ine (#1) [facility] Start: 11-28-2023 End: 11-28-2023 Patient encounter procedure 11/28/2023 9:30 AM EDT Office Visit Obstetrics/Gynecology [address] [place], [place] [id number] [place] [address] [place], [place] [id number] annual Obstetrics/Gynecolog y Comment on above: annual Start: 04-01-2023 Behavioral Health Screening Behavioral Health Screening [facility] Start: 12-29-2022 Depression Screen Depression Screen [facility] Start: 11-30-2022 Covid-19 Vaccine ( season) Covid-19 Vaccine () [facility] Start: 11-30-2022 Influenza vaccination C [facility] Start: 04-01-2022 DEPRESSION ASSESSMENT DEPRESSION ASS ESSMENT [facility] Start: 01-03-2022 End: 01-03-2022 Biopsy soft tissue leg/ankle area deep LEG LESION BIOPSY EXCISION Sebaceous cyst 01/03/2022 10:59 AM EDT [facility] Start: 11-30-2021 Influenza vaccination C [facility] Start: 10-30-2021 Influenza vaccination Flu vaccine (# 1) [facility] Start: 2019 Screening for malign ant neoplasm of cervix [facility] Start: 2010 Screening for malign ant neoplasm of cervix Pap smear [facility] Start: 02-29-2008 Hepatitis B Vaccine (1 of 3 - 19+ 3-dose series) Hepatitis B Vaccine (1 of 3 - 19+ 3-dose series) [facility] Start: 2007 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 JEF DISEASE VISIT ANNUAL PCP TEAM CHRONIC DISEASE VISIT [facility] Start: 2007 Anxiety Screening Anxiety Screening [facility] Start: 2007 Depression Screening Depression Scre ening [facility] Start: 2007 HEPATITIS C SCREENING HEPATITIS C SC AYSHA [facility] Start: 2007 Hepatitis C screening B [facility] Start: 02-29-2004 HIV screening HIV screen [facility] Start: 2001 Adult depression screening assessment DEPRESSION SCREENING [facility] Start: 1994 COVID-19 VACCINE (1) COVID-19 VACCIN E (1) [facility] Start: 1990 Varicella vaccine (1 of 2 - 2-dose childhood series) Varicella vaccine (1 of 2 - 2-dose childhood series) [facility] Start: 1989 COVID-19 Vaccine (#1) COVID-19 Vacci ne (#1) [facility] Start: 1989 HEPATITIS B (1 of 3 - 3-dose series) HEPATITIS B (1 of 3 - 3-dose series) [facility] End: 10-21-2023 RYAN DIAGNOSTIC LEFT RYAN DIAGNOSTIC LEFT Radiology Routine Breast pain, left 1 Occurrences starting 09/21/2022 until 10/21/2023 [facility] Work Phone: Comment on above: 1 Occurrences starti ng 09/21/2022 until 10/21/2023 PAP TEST PAP TEST Lab Rou jennifer Screening for cervical cancer Encounter for screening for human papillomavirus (HPV) 09/21/2022 10:33 AM EDT [facility] Work Phone: Surgical Pathology Surgical Path ology Lab Routine Sebaceous cyst Release Upon Ordering for 1 Occurrences starting 01/03/2022 [facility] Work Phone: Comment on above: Release Upon Orderin g for 1 Occurrences starting 01/03/2022 End: 10-21-2023 US BREAST LTD LEFT US BREAST LTD LEFT Radiology Routine Breast pain, left 1 Occurrences starting 09/21/2022 until 10/21/2023 [facility] Work Phone: Comment on above: 1 Occurrences starti ng 09/21/2022 until 10/21/[address] [facility] Immun[facility] Immunization Date Immunization Notes Care Provider Chio henry 01-01-2020 tetanus toxoid, reduced diphtheria toxoid, and acellular pertussis vaccine, adsorbed Guillermina Raman APRN.CNP Work Phone: [facility] NEGATED: Highlighted row has not occurred!03-15-2021 influenza, seasonal, injectable Patient Objection Irina Jimenez Other [employer] Other Payers Date Payer Category Payer Unknown [id number] 2019 Unknown GAVIN CALI PPO [id number] 2019-Present [phone] [address] [place] [address] PPO [id number] 2019 Unknown [id number] 1989 Unknown [id number] 1989 Unknown [id number] 1989 Unknown [id number] 1959 Unknown [id number] Self-pay Self Pay [id number] Social History Date Type Detail Facility Start: 03-03-2019 End: 09-21-2022 Tobacco smoking status NHIS Never smoked tobacco [facility] Start: 03-03-2019 End: 09-21-2022 Tobacco use and exposure Smokeless tobacco non-user [facility] Start: 07-26-2021 Alcohol intake Ex-drinker (finding) [facility] Start: 02-11-2020 End: 12-29-2021 History SDOH Financial 5 [facility] Start: 02-11-2020 End: 12-29-2021 History SDOH Food Worry 1 [facility] Start: 02-11-2020 History SDOH Transpo rt Med 2 [facility] Start: 1989 Sex Assigned At Not on file C [facility] Start: 07-16-2021 End: 01-03-2022 Exposure to SARS-CoV-2 (event) Not sure [facility] Start: 02-11-2020 End: 09-21-2022 Sex Assigned At [facility] Start: 01-03-2022 Alcohol intake Lifetime non-d sarah (finding) [facility] Phone: Start: 09-21-2022 End: 11-28-2023 Alcohol intake Current drinker of alcohol (finding) [facility] Start: 09-21-2022 Alcohol Comment socially [facility] Start: 02-11-2020 End: 09-21-2022 History of Social function [facility] How hard is it for y ou to pay for the very basics like food, housing, medical care, and heating Not hard at all [facility] (I/We) worried nanette er (my/our) food would run out before (I/we) got money to buy more. Never true [facility] Start: 1989 Sex Assigned At Female F [facility] Clinical Notes 10-30-2019 to 12-05-2023 Telephone Encounter - Jessica Seals RN - 12/05/2023 8:14 AM EDTTelephone Encounter - Jessica Seals RN - 12/05/2023 8:14 AM Ayana Hutson MD - 11/28/2023 9:56 AM EDT Note Date & Type Note Facility 12-05-2023 Telephone encounter Note Annual 11/28/2023 Requesting refills on medication Pended. [facility] 12-05-2023 Miscellaneous Notes Annual 11/28/2023 Requesting refills on medication Pended. documented in this encounter [facility] 11-28-2023 History of Presen t illness [...] ./rubio Ly MD documented in this encounter [facility] 11-28-2023 Nurse Note Accessories Repairer offered: Patient declines. [facility] 11-28-2023 Nurse Note Accessories Repairer offered: Patient declines. documented in this encounter [facility] 10-22-2023 Telephone encounter Note Refill request for OCP Last annual exam: 09/22/23 Next scheduled annual exam: 11/28/23 Orders pended if appropriate. Joelle Knox RN [facility] 10-22-2023 Miscellaneous Notes Refill request for OCP Last annual exam: 09/22/23 Next scheduled annual exam: 11/28/23 Orders pended if appropriate. Joelle Knox RN documented in this encounter [facility] 12-10-2022 Miscellaneous Notes Last annual 09-21-22. Next annual 11-28-23. Requesting Celexa refill. Please advise. Samir Melgoza RN documented in this encounter [facility] 09-21-2022 Note HNO ID: [id number] Author: Fabi Elaine MD Service: ? Author [...] L2 SAB0 IAB0 Ectopic0 Multiple0 Live Births2 Qual Research Manager History LMP: 08/25/2022, Having periods Age at Menarche: 13 Age at First : Age at Menopause: Qual Research Manager History Comments: Sexual Activity: Yes; Male Contraception: [...] external genitalia normal, normal Bartholin's glands, urethra, Nesquehoning's glands, no vulvar lesions, no cervical lesions, [...] or sooner as needed Fabi Elaine MD [facility] 09-21-2022 History of Presen t illness Narrative [...] L2 SAB0 IAB0 Ectopic0 Multiple0 Live Births2 Qual Research Manager History LMP: 08/25/2022, Having periods Age at Menarche: 13 Age at First : Age at Menopause: Qual Research Manager History Comments: Sexual Activity: Yes; Male Contraception: [...] external genitalia normal, normal Bartholin's glands, urethra, Nesquehoning's glands, no vulvar lesions, no cervical lesions, [...] Fabi Elaine MD documented in this encounter [facility] 09-21-2022 Nurse Note Accessories Repairer offered: Patient declines. documented in this encounter [facility] 06-27-2022 Miscellaneous Notes Refill request for OCP's Last Rx given 07/26/2021 LEANDRO 07/26/2021 NOV 07/31/2022 Thank you, Regina Phillips LPN documented in this encounter [facility] 01-11-2022 Evaluation note Encounter Date Diagnosis [...] (ICD-10 - L72.9) She did see a superintendent building at [facility] for evaluation and was referred to Dr. Baker in [place] through the [facility], and he removed the lesion from [...] checked she can call for an order. [facility] Other 10-05-2022 History of Present illness Narrative* Natalya Galdamez LPN - 01/03/2022 12:16 PM EDT Ice pack applied to posterior right knee. documented in this encounterBON [facility] Phone: [phone] Evaluation note* Encounter Date Diagnosis Assessment Notes Treatment Notes Treatment Clinical Notes Sep, Contact dermatitis (ICD-10 - L25.9) [facility] Other 06-30-2022 Evaluation note* Encounter Date Diagnosis [...] out. Aug, Other She voices that her review consultant recommends that she continue with the Fludrocortisone because her blood pressure still runs low. While she is on the steroids she is to hold the medication until the day after she has finished the Prednisone and then she can restart the medication. 1:34 PM - 1:40 PM [facility] Other 04-27-2022 History of Present illness Narrative* Guillermina Raman APRN.MANAGER HEART FAILURE - 07/26/2021 9:54 AM EDT Johanny is [...] L2 SAB0 IAB0 Ectopic0 Multiple0 Live Births2 Qual Research Manager History LMP: 07/06/2021, Having periods Age at Menarche: Age at First : Age at Menopause: Qual Research Manager History Comments: Sexual Activity: Yes; Male Contraception: [...] external genitalia normal, normal Bartholin's glands, urethra, Nesquehoning's glands, no vulvar lesions, no cervical lesions, [...] needed Guillermina Raman APRN.MEHUL [facility] Nurse Note* Jazmin Leroy Ma - 07/26/2021 9:54 AM EDT Accessories Repairer offered: Patient declines. [facility] Evaluation note* Encounter Date Diagnosis Assessment Notes Treatment Notes Treatment Clinical Notes Mar, Cough (ICD-10 - R05.9) Her COVID-19 PCR test was negative on 03-14-21. I did review her chest x-ray results with her which were negative. She voices that everyone in her house was fighting a sinus infection around [facility], but she is the only one [...] She could start with a couch to [employer] program. Mar, Cyst of skin (ICD-10 - L72.9) Noted on back of right knee. Either a cyst or dermatofibroma. She voices that it has been present for one year and has gotten larger. If it is a dermatofibroma it will get larger any time it is damaged, such as being knicked after shaving. She can see a superintendent building or a plastic surgeon for evaluation if she would like to have this removed. This does not bleed on it's own. It will not likely resolve on it's own. She is going to think about who she would like to see. She can call if she needs a referral. [facility] Other 07-31-2020 History of Past illness Narrative* [...] of this encounter (statuses as of 07/26/2021) [facility] History of Past illness Narrative* Problem [...] of this encounter (statuses as of 06/27/2022) [facility] History of Past illness Narrative* Problem [...] of this encounter (statuses as of 09/21/2022) [facility] History of Past illness Narrative* Problem [...] of this encounter (statuses as of 12/11/2022) [facility] Diagnosis Encounter for gynecological examination (general) (routine) without abnormal findings- Primary Encounter for screening breast examination Oral contraceptive pill surveillance Surveillance of previously prescribed contraceptive pill Low libido Decreased libido documented [facility] Other Evaluation note* Diagnosis Sebaceous cyst documented in this encounter [facility] Work Phone: evaluation note* Diagnosis Encounter for gynecological examination (general) (routine) without abnormal findings- Primary Screening for cervical cancer Screening for malignant neoplasm of the cervix Encounter for screening for human papillomavirus (HPV) Special screening examination for human papillomavirus (HPV) Encounter for surveillance of contraceptive pills Surveillance of previously prescribed contraceptive pill Breast pain, left Mastodynia documented in this [facility] assessment information [facility] Work Phone: Evaluation note* Diagnosis Encounter for gynecological examination (general) (routine) without abnormal findings- Primary documented in this encounter [facility] general Narrative - Reported* Type Description Date Medical History seizures Medical History neurocardiogenic sycope Surgical History 3 C- sections Surgical History tonsils and adenoids removed at age 4 Hospitalization History see above [facility] Other Reason for referral (narrative)* Diagnostic Procedure Only (Routine) - Pending Review Specialty Diagnoses / Procedures Referred By Julienne kearns Referred To Contact [facility] Diagnoses Breast pain, left Procedures US BREAST LTD LEFT US BREAST UNI REAL [place] [address] [place] [address] [facility] [address] [place] [address] Referral ID Status Reason Start Date Expiration Date Visits Requested Visits Authorized [id number] Pending Review Auto-Generat ed Referral 09/21/2022 10/21/2023 1 1 * Diagnostic Procedure Only (Routine) - Pending Review Specialty Diagnoses / Procedures Referred By Julienne kearns Referred To Contact [facility] Diagnoses Breast pain, left Procedures RYAN DIAGNOSTIC LEFT DIAGNOSTIC MAMMOGRAPHY COMPUTER-[place]ED [place] [address] [place] [address] [facility] [address] [place] [address] Referral ID Status Reason Start Date Expiration Date Visits Requested Visits Authorized [id number] Pending Review Auto-Generat ed Referral 09/21/2022 10/21/2023 1 1 [facility] Summary Purpose Family History Relationship Condition Age at Onset Recorded Date/T candido father Family history of colon cancer Unknown Malignant neoplasm Unknown family member Unknown Advance Directives Documents on File Type Date Recorded 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 Note HNO ID: [id number] Author: Nabeel Montoya I Service: ? Author Type: Anesthesiologist Type: Anesthesia Procedure Notes Filed: 02/10/2020 11:50 AM Note Text: ANESTHESIOLOGY PROCEDURE NOTE Spinal Block General Information Procedure Start Time/Medication Administration: 02/10/2020 10:03 AM Patient location during procedure: LANDD room Timeout Performed Pre-procedure: timeout performed Consent Obtained: Yes Patient identity confirmed: arm band, care steam cleaner and patient Reason for Block: primary surgical [...] (more content not included)... Note HNO ID: [id number] Author: Lino Ly Service: Gynecology Author Type: Physician Type: LANDD Delivery Note Filed: 02/10/2020 11:03 AM Note Text: OBSTETRICS - BRIEF OPERATIVE NOTE DELIVERY SUMMARY: Log ID: [id number] Surgery Date: 02/10/2020 Incision/Procedure Start Time: 10:15 AM Incision Close/Procedure End Time: Gestational Age at Delivery: 37w0d Primary Reason for Delivery Today: Prior Intrauterine Demise Additional Clinical Indicators for Delivery: Scheduled Cesearean Section Indication for : Additional Pre-Op Details (if applicable): previous x 2 Postop Diagnosis: Same as pre-op diagnosis Surgeon(s) and Television Inspector(s): Surgeon(s) and Role: * Ayana Ly - Primary Physician Television Inspector: Chema Keys Procedures and Anesthesia: Procedure(s) and Anesthesia Type: * SECTION REPEAT - Spinal Information for the patient's : Karli Villegas [[id number]] Type: , Low Transverse Categorization: Repeat Ope (more content not included)... Procedure Findings Note HNO ID: [id number] Author: aNbeel Montoya I Service: ? Author Type: Anesthesiologist Type: Anesthesia Procedure Notes Filed: 02/10/2020 11:50 AM Note Text: ANESTHESIOLOGY PROCEDURE NOTE Spinal Block General Information Procedure Start Time/Medication Administration: 02/10/2020 10:03 AM Patient location during procedure: LANDD room Timeout Performed Pre-procedure: timeout performed Consent Obtained: Yes Patient identity confirmed: arm band, care steam cleaner and patient Reason for Block: primary surgical anesthetic Staffing Anesthesiologist: Jose Monotya I CAA: Maggie Malik (Aa) Performed by: [...] (more content not included)... Note HNO ID: [id number] Author: Lino Ly Service: Gynecology Author Type: Physician Type: LANDD Delivery Note Filed: 02/10/2020 11:03 AM Note Text: OBSTETRICS - BRIEF OPERATIVE NOTE DELIVERY SUMMARY: Log ID: [id number] Surgery Date: 02/10/2020 Incision/Procedure Start Time: 10:15 AM Incision Close/Procedure End Time: Gestational Age at Delivery: 37w0d Primary Reason for Delivery Today: Prior Intrauterine Demise Additional Clinical Indicators for Delivery: Scheduled Cesearean Section Indication for : Additional Pre-Op Details (if applicable): previous x 2 Postop Diagnosis: Same as pre-op diagnosis Surgeon(s) and Television Inspector(s): Surgeon(s) and Role: * Ayana Ly - Primary Physician Television Inspector: Chema Keys Procedures and Anesthesia: Procedure(s) and Anesthesia Type: * SECTION REPEAT - Spinal Information for the patient's : Karli Villegas [[id number]] Type: , Low Transverse Categorization: Repeat Ope (more content not included)... Chief Complaint and Reason for Visit Chief Complaint Rash, exposed to poi son krys Additional Source Comments INFORMATION SOURCE (unrecogn ized section and content) DATE CREATED AUTHOR 08/18/2018 [facility] DATE CREATED AUTHOR AUTHOR'S ORGANIZ ATION 04/11/2019 [facility] DATE CREATED AUTHOR AUTHOR'S ORGANIZ ATION 02/16/2020 [facility] DATE CREATED AUTHOR AUTHOR'S ORGANIZ ATION 03/19/2021 [facility] DATE CREATED AUTHOR AUTHOR'S ORGANIZ ATION 04/25/2021 [facility] DATE CREATED AUTHOR AUTHOR'S ORGANIZ ATION 01/02/2022 [facility] DATE CREATED AUTHOR AUTHOR'S ORGANIZ ATION 01/04/2022 [facility] DATE CREATED AUTHOR AUTHOR'S ORGANIZ ATION 10/01/2022 [facility] Source Comments (unrecognize d section and content) In the event this informatio n is protected by the Federal Confidentiality of Alcohol and Drug Abuse Patient Records regulations: The Federal rules restrict any use of the information to criminally investigate or prosecute any alcohol or drug abuse patient.[facility] the event this information is protected by the Federal Confidentiality of Alcohol and Drug Abuse Patient Records regulations: The Federal rules restrict any use of the information to criminally investigate or prosecute any alcohol or drug abuse patient.[facility] the event this information is protected by the Federal Confidentiality of Alcohol and Drug Abuse Patient Records regulations: The Federal rules restrict any use of the information to criminally investigate or prosecute any alcohol or drug abuse patient.[facility] the event this information is protected by the Federal Confidentiality of Alcohol and Drug Abuse Patient Records regulations: The Federal rules restrict any use of the information to criminally investigate or prosecute any alcohol or drug abuse patient.[facility] the event this information is protected by the Federal Confidentiality of Alcohol and Drug Abuse Patient Records regulations: The Federal rules restrict any use of the information to criminally investigate or prosecute any alcohol or drug abuse patient.[facility] the event this information is protected by the Federal Confidentiality of Alcohol and Drug Abuse Patient Records regulations: The Federal rules restrict any use of the information to criminally investigate or prosecute any alcohol or drug abuse patient.[facility] the event this information is protected by the Federal Confidentiality of Alcohol and Drug Abuse Patient Records regulations: The Federal rules restrict any use of the information to criminally investigate or prosecute any alcohol or drug abuse patient.[facility] Reason for Visit (unrecogniz ed section and content) Reason Comments Yearly Exam 07/2019 pap & hpv NEG Specialty Diagnoses / Procedures Referred By Contac t Referred To Contact Diagnoses Sebaceous cyst SEBACEOUS CYST Procedures DC BX LOW LEG SOFT TISSUE,DEEP EXCISION OF RIGHT POSTERIOR KNEE MASS WITH COMPLEX CLOSURE 1 HOUR ([facility]) Yamilex Acevedo MD [address] [place] [address] [facility] [address] [place] [address] Referral ID Status Reason Start Date Expiration Date Visits Re quested Visits Authorized [id number] 1 1 Reason Comments Refill Request Reason [...] 100 mL IVPB (COMPLETED) 2,000 mg, IntraVENous, INGOT BUGGY OPERATOR TO O.R., 1 dose, On Sat01/03/22 at [...] Medication Order 01/01/2022 01/02/2022 01/03/2022 lidocaine-EPINEPHrine 1 %-[id number] injection (CANCELED) PRN, Starting on Sat01/03/22 at 1116, Until Sat01/03/22 at 1148, Intra-op 1116 (Given - Provid er: Yamilex Acevedo MD - Comment: injected into op site) sodium chloride 0.9 % irrigation (CANCELED) CONTINUOUS PRN, Starting on Sat01/03/22 at 1119, Intra-op 1119 (New Bag - Prov ider: Yamilex Acevedo MD) Care Teams (unrecognized sec tion and content) Roofing Layer Relationship Specialty Start Date End Date Irina Jimenez DO [facility] [place] [address] PCP - General Family Medicine 01/02/22 Team Status: Active Member Role Status Dates Irina Jimenez DO Primary Care Provider Active Team Status: Active Member Role Status Dates Elizabeth Gao APRN PSYCHOLOGICAL AIDE-C Primary Care Provider Active Start: September 24, [...] BE BASED ON THE PRIMARY CLINICAL RECORDS. [facility] HistoryFile [facility]. provides no warranty or guarantee of the accuracy or completeness of information in this document.
== END 2024-04-03 08:01 | disposition home or self-care (01) ==
LOC: CT 08:01
PROVIDERS: PCP Family Medicine; Visit Provider Podiatrist Foot & Ankle Surgery
DX: M20.21 Hallux rigidus, right foot (principal)
CPT/HCPCS: 73700

== ENCOUNTER 2024-11-08 09:37 | Emergency (ER) | payer BC, SELFPAY ==
--- OUTSIDE RECORDS SUMMARY | 2024-03-30 06:41 | XMS_ITS ---
Author Organization The [facility] in [place] Address [address] [place] [address] Care Team Providers Care Dog Track Kennel Manager Name Role Phone Colby Estrada DO Primary Care Provider UnavailEfraín Cain [phone] reminder to sched Encounters Encounter Location Date Provider Diagnosis [facility] (PODIATRY) [address] [place] [address] [address] [place] [address] 03/30/2024 Efraín Lala Plan Of Treatment No Information Progress Notes * Seth PÉREZOB:1990 (34 yo F)Acc No.[id number]:03/30/2024 Patient: Johanny MCCLELLAN :1990 A ge:34 Y S ex:Female Address:[address] [facility] [address] * true * Date: Generated for Printi ng/Faxing/eTransmitting on: 0 11/08/2024 09:46 AM EDT
--- OUTSIDE RECORDS SUMMARY | 2024-04-02 04:49 | XMS_ITS ---
Author Organization [facility] [place] Address [address] [place] [address] Care Team Providers Care Arabic Linguist Name Role Phone Colby Estrada DO Primary Care Provider Efraín Mcdonough [phone] REASON FOR VISIT med refill Medications Medication SIG (Take, Route, Fr equency, Duration) Notes Start Date End Date Status Meloxicam 15 MG 1 tablet Orally Once a day for 30 days 04/02/2024 Active Encounters Encounter Location Date Provider Diagnosis [facility] (PODIATRY) [address] [place] [address] [address] [place] [address] 04/02/2024 Efraín Lala Plan Of Treatment Medication Medication Name Sig Start Date Stop Date Notes Meloxicam 15 MG 1 tablet Orally Once a day for 30 days 05/2024 Progress Notes * Seth PÉREZOB:1990 (34 yo F)Acc No.[id number]:04/02/2024 Patient: S Johanny STANLEY :1990 A ge:34 Y S ex:Female Address:[address], [place], [address] * Refills Start Meloxicam Tablet, 15 MG, Orally, 30, 1 tablet, Once a day, 30 days, Refills=2 * true * Date: Generated for Printi ng/Faxing/eTransmitting on: 0 11/08/2024 09:45 AM EDT
--- OUTSIDE RECORDS SUMMARY | 2024-04-08 06:30 | XMS_ITS ---
Author Organization [facility] in [place] Address [address] [place] [address] Care Team Providers Care Hr Advisor Name Role Phone Colby Estrada DO Primary Care Provider Efraín Mcdonough [phone] Allergies No Known Allergies REASON FOR VISIT CT REVIEW Medications Medication SIG (Take, Route, Fr equency, Duration) Notes Start Date End Date Status Meloxicam 15 MG 1 tablet Orally Once a day for 30 days 04/02/2024 Active CeleXA 20 MG 1 tablet Orally Once a day Active Multi Vitamin - 1 tablet Orally Once a day Active Social History Tobacco Use: Social History Observation Description Date Details (start date - stop date) Never Smoker NA - NA Tobacco Control (Standard) Question Answer Notes Tobacco use: Nonsmoker Vital Signs Temperature 96.3 degrees Fahrenheit 04/08/19 25 Heart Rate 72 /min 04/08/2024 Respiratory Rate 18 /min 04/08/2024 Oximetry 99 % 04/08/2024 Encounters Encounter Location Date Provider Diagnosis [facility] (PODIATRY) [address] [place] [address] [place] [address] 04/08/2024 Efraín Lala Hallux rigidus, righ t foot M20.21 and 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 Patient's condition was provided and all questions were answered to satisfaction. I reviewed x-rays, ct and physical exam findings. At last appointment I outlined the pros and cons of fusion versus cheilectomy. CT scan was obtained which does show dorsal osteophyte and mild joint space narrowing which seemingly is worse on the dorsal aspect of the joint there is also a small cyst which may be indicative of osteochondral defect in the dorsal aspect of the first met head.Patient would like to undergo surgery and I recommended: Cheilectomy of right first metatarsal phalangeal joint I reviewed the possible complications which include but not limited to infection, wound healing issue, numbness and tingling, bleeding, blood clot, pain, need for additional surgery. Postoperative course was reviewed and the patient will likely be: Weightbearing as tolerated in cam boot/surgical shoe for 3 to 4 weeks Patient will be: outpatient postoperatively Proposed anesthesia:Genera l: MAC Proposed implants: none 04/08/2024 Other specified acquired deformities of musculoskeletal system (ICD-10 - M95.8) Plan Of Treatment Treatment Notes Assessment Notes Hallux rigidus, right foot Patient was seen and evaluated. Patient's condition was provided and all questions were answered to satisfaction. I reviewed x-rays, ct and physical exam findings. At last appointment I outlined the pros and cons of fusion versus cheilectomy. CT scan was obtained which does show dorsal osteophyte and mild joint space narrowing which seemingly is worse on the dorsal aspect of the joint there is also a small cyst which may be indicative of osteochondral defect in the dorsal aspect of the first met head.Patient would like to undergo surgery and I recommended: Cheilectomy of right first metatarsal phalangeal joint I reviewed the possible complications which include but not limited to infection, wound healing issue, numbness and tingling, bleeding, blood clot, pain, need for additional surgery. Postoperative course was reviewed and the patient will likely be: Weightbearing as tolerated in cam boot/surgical shoe for 3 to 4 weeks Patient will be: outpatient postoperatively Proposed anesthesia:General: MAC Proposed implants: none Progress Notes * Jamie PÉREZCandidoOB:1990 (34 yo F)Acc No.[id number]:04/08/2024 Follow Up Patient: Johanny MCCLELLAN Provider: Rich Lala DPM, MS :1990 A ge:34 Y S ex:Female Date:04/08/2024 Address:[address], [id number] Pcp:Colby Estrada, DO Check In:10:28 AM ESTCheck O ut:11:28 AM EST Subjective: * Chief Complaints: * C T REVIEW * HPI: G eneral: Here today for CT review right foot. Continues with right great toe pain rates 10/08. Pain is located dorsal first metatarsophalangeal joint and worsened with dorsiflexion and going barefoot. * ROS: G eneral/Constitutional: Chills d enies. F ever d enies. W eight gain?denies. W eight loss d enies. S kin: Skin Ulcers d enies. S kin lesion(s) d enies. ? C ardiovascular: Difficulty breathing on exertion d enies. L eg cramps?denies. E colleen d enies. C hest pain d enies. R espiratory: Difficulty breathing d enies. D yspnea d enies.?Cough d enies. G astrointestinal: Diarrhea d enies. N ausea d enies. V omiting?denies. M usculoskeletal: Bone/Joint Symptoms d enies. C ana maria Pain d enies.?Leg cramps d enies. N eurologic: Numbness d enies. T ingling d enies . G ait abnormality d enies. ? H ematology: Anemia D enies. E asy bruising d enies. ? A ll Other Systems: Review of Systems (ROS) S ee HPI for details,All others negative except those mentioned in HPI. * Active Problem List M20.21 Hallux rigidus, righ t foot Modified On:02/26/2024W/U Status:confirmed * Medical History: * Surgical History: c section 04/18/2016c- section 07/29/2018c- section * Hospitalization/Major Diagno stic Procedure: N o Hospitalization History. * Family History: F ather: diagnosed with Other malignant neoplasm of unspecified site. * Social History: T obacco Use: T obacco Control (Standard) T obacco use: N onsmoker * Medications: T akingCeleXA(Citalopram Hydrobromide) 20 MG Tablet 1 tablet Orally Once a day Meloxicam 15 MG Tablet 1 tablet Orally Once a day Multi Vitamin - Tablet 1 tablet Orally Once a day Medication List reviewed and reconciled with the patientTaking Melisa(Citalopram Hydrobromide) 20 MG Tablet 1 tablet Orally Once a day Taking Meloxicam 15 MG Tablet 1 tablet Orally Once a day Taking Multi Vitamin - Tablet 1 tablet Orally Once a day Medication List reviewed and reconciled with the patient * Allergies: N .K.D.A.no[Allergies Verified] Objective: * Vitals: T emp:96.3F, HR:72/min, RR:18/min, Pain scale:71-10, Oxygen sat %:99%. * Examination: P odiatry Examination: SKIN: s kin intact, n o sign of infection. MUSCULOSKELETAL: P OP dorsal first metatarsal phalangeal joint. No mid range pain. Pain with maximum dorsiflexion which is limited. NEUROLOGICAL: l ight touch sensation intact, n egative tinel's sign. VASCULAR: P edal pulses palpable, C apillaryrefill is brisk to toe, D igitalhair intact. C T scan shows degenerative changes with dorsal osteophyte of first metatarsal phalangeal joint which seemingly is limited to the dorsal third of the joint. Small cystic formation in the dorsal aspect of the first met head. Assessment: * Assessment: 1. H allux rigidus, right foot - M20.21 (Primary) 2 . 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 Continues with right great toe pain rates 7/10. Pain is located dorsal first metatarsophalangeal joint and worsened with dorsiflexion and going barefoot. Examination Category Sub-Category Detail Notes Category Not es Podiatry Examination SKIN: skin intact, no sign of infection CT scan shows degenerative changes with dorsal osteophyte of first metatarsal phalangeal joint which seemingly is limited to the dorsal third of the joint. Small cystic formation in the dorsal aspect of the first met head MUSCULOSKELETAL: POP dorsal first met atarsal phalangeal joint. No mid range pain. Pain with maximum dorsiflexion which is limited NEUROLOGICAL: light touch sensatio n intact, negative tinel's sign VASCULAR: Pedal pulses palpable, Capillary refill is brisk to toe, Digital hair intact
[2024-11-08 09:43] VITALS: BP 122/77; PULSE 60; TEMP 36.6; O2SAT 100; BMI 25.1
--- OUTSIDE RECORDS SUMMARY | 2024-11-08 09:45 | XMS_ITS | CCD ---
Author Organization [facility] Care Team Providers Care Rn Postpartum Name Role Phone FELIPE LOWRY Admitting Unavailable FELIPE LOWRY Attending Unavailable FELIPE LOWRY Consulting Unavailable SEAN, DR ASHTON Primary Care Unavailable BARBARA, DR AREVALO Consulting Unavailable BARBARA, DR ARVEALO Attending Unavailable BARBARA, DR AREVALO Admitting Unavailable WEST, DR AREVALO V Consulting Unavailable Unavailable Primary Care Provider Irina Gutierrez Unavailable Irina Jimenez DO Primary Care Provider Unavail able YAMILEX ACEVEDO Admitting Unavailable YAMILEX ACEVEDO Attending Unavailable IRINA JIMENEZ Primary Care Unavailable Unavailable Primary Care Provider UnavailFABI Pimentel Attending Unavailable Unavailable Primary Care Provider Irina Gutierrez MD Primary Care Provider [phone] CYRUS GOMES Attending Unavailable Allergies Allergy Classification Reported Allergen(s) Allergy Type Date of Onset Reaction(s) Facility (1 source) Cephalexin Drug Allergy chest tightness/ possible? see OV note 01-11-22 [employer] Other (1 source) Cephalexin Drug Allergy chest tightness/ possible? see OV note 01-11-22 [facility] Comment on above: sx occurred after pr summer w/ Dr. Baker at [facility] (dermatology) but no rash associated with taking the medication Medications Current Medications Medication Drug Class(es) Dates Sig (Normalized) Sig (Original) Calcium (4 sources) Phosphate Binder, Calcium Calcium Active citalopram 10 mg oral tablet (17 sources) Serotonin Reuptake Inhibitor Start: 07-06-2024 take 1 tablet by mouth once daily Citalopram 10 mg tablet Active 10 MG PO Daily July 06, 2024 12:00am Start: 12-05-2023 citalopram (CE ANDERSON) 40 mg tablet take 1 tablet daily 90 tablet 3 12/05/2023 Active Start: 10-16-2023 Citalopram Act quang MG PO October 16, 2023 12:00am Start: 09-11-2022 End: 07-06-2024 Citalopram 40 mg tablet Disc ontinued MG PO October 16, 2023 12:00am July 06, 2024 3:07pm Start: 03-20-2021 citalopram (CE ANDERSON) 40 mg tablet TAKE 1 TABLET DAILY 90 tablet 1 03/14/2022 Active Comment on above: TAKE 1 TABLET DAILY Drospirenone-Ethinyl Estradiol (18 sources) Progestin, Estrogen Start: 07-06-2024 Drospirenone-Ethinyl Estradiol (Cher) 3-0.03 mg tablet Active TAB PO Daily July 06, 2024 12:00am Start: 11-28-2023 take 1 tablet by amxi th once daily, then take 3 tablets [...] th once daily. TAKE 1 TABLET DAILY Multivitamin tablet (1 source) Start: 07-06-2024 take 1 tablet by mouth once daily Multivitamin tablet Active 1 TAB PO Daily July 06, 2024 12:00am predniSONE 20 mg oral tablet (3 sources) [...] daily. fludrocortisone acetate 0.1 mg oral tablet (10 sources) Start: 10-16-2023 End: 10-16-2023 Fludrocortisone 0.1 mg tablet Discontinued MG PO October 16, 2023 12:00am October 16, 2023 3:29pm Start: 10-16-2023 End: 10-16-2023 Fludrocortisone Discontinued MG [...] Problem Classification Problem Date Documented Date Episodic/Chronic Acquired foot deformities (2 sources) Metatarsophalangeal joint stiff; Translations: [Other deformities of toe(s) (acquired), right foot] 09-28-2024 Episodic Anxiety disorders (8 sources) Anxiety; Translations: [Anxiety disorder, unspecified] Chronic Contraceptive and procreative management (2 sources) Oral contraception; Translations: [Encounter for surveillance of contraceptive pills] Episodic Disorders of lipid metabolism (6 sources) Hyperlipidemia; Translations: [Hyperlipidemia, unspecified] Onset: 1 Resolved: Chronic Epilepsy; convulsions (15 sources) Epilepsy; Translations: [Epilepsy, unspecified, not intractable, without status epilepticus] Onset: 9 07-26-2021 Chronic Menstrual disorders (7 sources) Irregular periods; Translations: [Irregular menstruation, unspecified] Onset: 8 07-26-2021 Chronic Nonmalignant breast conditions (1 source) Mastodynia; Translations: [Mastodynia] Episodic Other acquired deformities (2 sources) Equinus contracture of the ankle; Translations: [Contracture, right ankle] 09-28-2024 Chronic Other connective tissue disease (2 sources) Bone spur of right foot; Translations: [Other enthesopathy of right foot and ankle] 09-28-2024 Episodic Other connective tissue disease (2 sources) Synovitis and tenosynovitis; Translations: [Other synovitis and tenosynovitis, right ankle and foot] 09-28-2024 Episodic Other non-traumatic joint disorders (2 sources) Pain of joint of right foot; Translations: [Pain in right ankle and joints of right foot] 09-28-2024 Episodic Other conditions (3 sources) Cardiac arrest of ; Translations: [CARDIAC ARREST OF ] Onset: 9 Episodic Other screening for suspected conditions (not mental disorders or infectious disease) (3 sources) Patient encounter status; Translations: [Encounter for other screening for malignant neoplasm of breast] Episodic Other skin disorders (2 sources) Follicular cyst of the skin and subcutaneous tissue, unspecified Onset: 1 Resolved: 1 Episodic Other skin disorders (2 sources) Sebaceous cyst of skin; Translations: [Sebaceous cyst] Onset: 2 Episodic Other skin disorders (1 source) Sebaceous cyst; Translations: [Sebaceous cyst] Onset: 2 Episodic Residual codes; unclassified (1 source) Reduced libido; Translations: [Decreased libido] Episodic Syncope (3 sources) Syncope and collapse; Translations: [Vasovagal syncope] Episodic Thyroid disorders (14 sources) Hypothyroidism; Translations: [Hypothyroidism, unspecified] Onset: 9 07-26-2021 Chronic Unclassified (3 sources) COUGH, UNSPECIFIED; Translations: [COUGH, UNSPECIFIED] Onset: 1 Unclassified (1 source) CONTACT W/AND (SUSP) EXPOS COVID-19; Translations: [CONTACT W/AND (SUSP) EXPOS COVID-19] Onset: 1 Past or Other Problems Problem Classification Problem [...] glycoprotein 1 IgA Qn (S) <9 0-25 [facility] Comment on above: Result Units: GPI Ig A unitsThe reference interval reflects a 3SD or 99th percentileinterval, which is thought to represent a potentiallyclinically significant result in accordance with theInternational Consensus Statement on the classificationcriteria for definitive antiphospholipid syndrome (APS). JThromb Haem 2006;4:295-306. Beta 2 glycoprotein 1 IgG Ab [Units/volume] in Serumon 09-24-2023 Beta 2 glycoprotein 1 IgG Qn (S) <9 0-20 [facility] Comment on above: Result Units: GPI Ig G unitsThe reference interval reflects a 3SD or 99th percentileinterval, which is thought to represent a potentiallyclinically significant result in accordance with theInternational Consensus Statement on the classificationcriteria for definitive antiphospholipid syndrome (APS). JThromb Haem 2006;4:295-306. Beta 2 glycoprotein 1 IgM Ab [Units/volume] in Serumon 09-24-2023 Beta 2 glycoprotein 1 IgM Qn (S) <9 0-32 [facility] Comment on above: Result Units: GPI Ig M unitsThe reference interval reflects a 3SD or 99th percentileinterval, which is thought to represent a potentiallyclinically significant result in accordance with theInternational Consensus Statement on the classificationcriteria for definitive antiphospholipid syndrome (APS). JThromb Haem 2006;4:295-306.Performed at: [facility] [address] [id number] Director: Guera Patel MD, Phone: [phone] No Panel Informationon 09-23 Miscellaneous Test COMMENT . [facility] Comment on above: Test Ordered: [id number] Lupus Anticoagulant CompDilute Prothrombin Time(dPT) 32.0 sec Reference Range: 0.0-47.6dPT Confirm Ratio 1.21 Ratio Reference Range: 0.00-1.34Thrombin Time 20.0 sec Reference Range: 0.0-23.0PTT-LA 35.5 sec Reference Range: 0.0-43.5dRVVT 32.7 sec Reference Range: 0.0-47.0Lupus Reflex Interpretation Comment: Reference Range: .No lupus anticoagulant was detected.Performed at: [address] [id number] Director: Guera Patel MD, Phone: [phone] at: [address] [id number] Director: Corky Samuels PhD, Phone: [phone] CNOVon 09-21-2022 [facility] Office Visit (JOSÉ MIGUEL ) -- JOHANNY VILLEGAS ([id number]) 1990 F Date Time Provider Department 09/21/22 9:50 AM FABI ELAINE During your visit today, we recorded the following information about you: Blood pressure Weight Height Last Period 124/78 77.1 kg 1.702 m 08/25/22 Jennifer Hardy Ma 09/21/2022 9:55 AM Signed Visual Specialist offered: Patient declines. 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 #:[id number] [facility] LEFT [[id number]] Order #: [id number] FUTURE US BREAST LTD LEFT [[id number]] Order #: [id number] FUTURE Drospirenone-Ethinyl Estradiol (CHER) 3-0.03 mg per tabletTake 1 tablet by mouth once daily.Disp: 84 tabletRf (more content not included)... Normal [facility] HPV W/GENOTYPE THIN PREPon 0 09-21-2022 HPV 16 Ag Ql (Unsp spec) Negative Normal Negative for HPV DNA high risk type 16 by PCR [facility] Comment on above: Order Comment: Speci men Type: FLUID SPECIMEN Ordering Facility: [facility] Address: [address] [place] [address] Performed By: #### H PVHRT #### [facility] CLIA [id number] [address] [place] [address] [place] HPV 18 Ag Ql (Unsp spec) Negative Normal Negative for HPV DNA high risk type 18 by PCR [facility] Comment on above: Order Comment: Speci men Type: FLUID SPECIMEN Ordering Facility: [facility] Address: [address] [place] [address] Performed By: #### H PVHRT #### [facility] CLIA [id number] [address] [place] [address] [place] HPV 31+33+35+39+45+51+ 52+56+58+59+66+68 DNA CARIN+probe Ql (Cvx) Negative for HPV DNA high risk types: 31,33,35,39,45,51,52,56,58 ,59,66,68 by PCR. Normal Negative for HPV DNA high risk types: 31,33,35,39,4 5,51,52,56,58 ,59,66,68 by PCR. [facility] Comment on above: Order Comment: Speci men Type: FLUID SPECIMEN Ordering Facility: [facility] Address: [address] [place], [place] [id number] Performed By: #### H PVHRT #### [facility] CLIA [id number] [address] [place] [address] [place] PAP TESTon 09-21-2022 CASE REPORT Normal [facility] Comment on above: Order Comment: Speci men Type: FLUID SPECIMEN Ordering Facility: [facility] Address: [address] [place] [address] Result Comment: Gyne cologic Cytology Report Case: [id number] Authorizing Provider: Fabi Elaine MD Collected: 09/21/2022 10:33 AM Ordering Location: Obstetrics/Gynecology Received: 09/21/2022 01:09 PM First Screen: DELVIS Winn, ASCP Specimen: Pap Test, ThinPrep, Cervix Performed By: #### L [id number] #### [facility] CLIA [id number] [address] [place] [address] [place] CLINICAL HISTORY, CYTOLOGY, GRAY TENDER Routine Exam Normal [facility] Comment on above: Order Comment: Speci men Type: FLUID SPECIMEN Ordering Facility: [facility] Address: [address] [place] [address] Performed By: #### L [id number] #### [facility] CLIA [id number] [address] [place] [address] [place] CYTOLOGY INTERPRETATION PAP Normal [facility] Comment on above: Order Comment: Speci men Type: FLUID SPECIMEN Ordering Facility: [facility] Address: [address] [place] [address] Result Comment: Nega tive for Intraepithelial lesion or malignancy. Performed By: #### L [id number] #### [facility] CLIA [id number] [facility] [place] [address] [place] FINAL DIAGNOSIS A - Cervix Normal [facility] Comment on above: Order Comment: Speci men Type: FLUID SPECIMEN Ordering Facility: [facility] Address: [address] Result Comment: Sati sfactory for interpretation Negative for Intraepithelial lesion or malignancy. Performed By: #### L [id number] #### [facility] CLIA [id number] [address] [place] [address] [place] FINAL PERFORMING LAB Normal [facility] Comment on above: Order Comment: Speci men Type: FLUID SPECIMEN Ordering Facility: [facility] Address: [address] Result Comment: Tech nical component, signals intelligence superintendent screening performed at [facility], [address] [place] [address] CLIA# [id number] Diagnostic interpretation performed at [facility], [address] [facility] [address] CLIA# [id number] Mgmt Consultant: Alessio Vincent M.D. Performed By: #### L [id number] #### [facility] CLIA [id number] [address] [place] [address] [place] HPV REFLEX Auto HPV Normal [facility] Comment on above: Order Comment: Speci men Type: FLUID SPECIMEN Ordering Facility: [facility] Address: [address] Performed By: #### L [id number] #### [facility] CLIA [id number] [address] [place] [id number] [place] LMP 08/25/2022 Normal [facility] Comment on above: Order Comment: Speci men Type: FLUID SPECIMEN Ordering Facility: [facility] Address: [address] Performed By: #### L [id number] #### [facility] CLIA [id number] [address] [place] [address] [place] PAP DISCLAIMER COMMENT The Pap Smear is a screening test for cervical cancer. False negative results occur with all screening tests, emphasizing the need for rescreening at recommended intervals, and clinical correlation. Normal [facility] Comment on above: Order Comment: Speci men Type: FLUID SPECIMEN Ordering Facility: [facility] Address: [address] [place] [address] Performed By: #### L [id number] #### [facility] CLIA [id number] [address] [place] [address] [place] PAP MACHINIST JOB SETTER COMMENT This specimen has be en analyzed by the ThinPrep Imaging System, an automated imaging and review system, which assists the laboratory in evaluating cells on ThinPrep Pap tests. Following automated imaging, selected bermudez from every slide are reviewed by a signals intelligence superintendent. Normal [facility] Comment on above: Order Comment: Speci men Type: FLUID SPECIMEN Ordering Facility: [facility] Address: [address] [place] [address] Performed By: #### L [id number] #### [facility] CLIA [id number] [address] [place] [address] [place] OPERATIVE REPORTon 2 [place] [address] OPERATIVE REPORT PATIENT NAME: JOHANNY VILLEGAS : 1990 MED REC NO: [id number] ROOM: ACCOUNT NO: [id number] ADMIT DATE: 01/03/2022 PROVIDER: Yamilex Acevedo M.D. DATE OF PROCEDURE: 01/03/2022 PREOPERATIVE DIAGNOSIS: Right popliteal cyst. POSTOPERATIVE DIAGNOSIS: Right popliteal cyst. OPERATION PERFORMED: Excision of right popliteal cyst of 3.2 cm with complex closure. ATTENDING SURGEON: Yamilex Acevedo MD CARTRIDGE MAKER: Palmira Murphy CNP ANESTHESIA: General endotracheal anesthesia. [...] with the described procedure. Please note the educational assistant teacher was utilized for all portions of the [...] There were no complications. YAMILEX ACEVEDO M.D. [id number] Doc#: [id number] CC: Normal [facility] POC UR-QUALon Beta HCG ( test) Ql (U) Negative Negative The Local Phone: Lot Number [id number] The Local Phone: Negative QC Pass/Fail Pass The Local Phone: Positive QC Pass/Fail Pass The Local Phone: The Local Phone: CBC With Platelet and Differ entialon 12-29-2021 Basophils (Bld) [#/Vol] 0.0 10*3/uL Normal 0.0-0.2 [facility] Comment on above: Performed By: #### C BCWD #### [facility] [address] [place] [address] Basophils/100 WBC (Bld) 0.5 % Normal [facility] Comment on above: Performed By: #### C BCWD #### [facility] [address] [place] [address] Eosinophils (Bld) [#/Vol] 0.1 10*3/uL Normal 0.0-0.7 [facility] Comment on above: Performed By: #### C BCWD #### [facility] [address] [place] [address] Eosinophils/100 WBC (Bld) 1.1 % Normal [facility] Comment on above: Performed By: #### C BCWD #### [facility] [address] [place] [address] Erythrocyte distribution width (RBC) [Ratio] 12.7 % Normal 11.5-14.5 [facility] Comment on above: Performed By: #### C BCWD #### [facility] [address] [place] [address] Hematocrit (Bld) [Volume fraction] 41.0 % Normal 37.0-47.0 [facility] Comment on above: Performed By: #### C BCWD #### [facility] [address] [place] [address] Hemoglobin (Bld) [Mass/Vol] 13.7 g/dL Normal 12.0-16.0 [facility] Comment on above: Performed By: #### C BCWD #### [facility] [address] [place] [address] Lymphocytes (Bld) [#/Vol] 1.6 10*3/uL Normal 1.0-4.8 [facility] Comment on above: Performed By: #### C BCWD #### [facility] [address] [place] [address] Lymphocytes/100 WBC (Bld) 33.0 % Normal [facility] Comment on above: Performed By: #### C BCWD #### [facility] [address] [place] [address] MCH (RBC) [Entitic mass] 31.6 pg Critically high 27.0-31.3 [facility] Comment on above: Performed By: #### C BCWD #### [facility] [address] [place] [address] MCHC 33.3 % Normal 33.0-37.0 [facility] Comment on above: Performed By: #### C BCWD #### [facility] [address] [place] [address] MCV (RBC) [Entitic vol] 94.9 fL Normal 82.0-100.0 [facility] Comment on above: Performed By: #### C BCWD #### [facility] [address] [place] [address] Monocytes (Bld) [#/Vol] 0.4 10*3/uL Normal 0.2-0.8 [facility] Comment on above: Performed By: #### C BCWD #### [facility] [address] [place] [address] Monocytes/100 WBC (Bld) 8.5 % Normal [facility] Comment on above: Performed By: #### C BCWD #### [facility] [address] [place] [address] Neutrophils (Bld) [#/Vol] 2.7 10*3/uL Normal 1.4-6.5 [facility] Comment on above: Performed By: #### C BCWD #### [facility] [address] [place] [address] Neutrophils/100 WBC (Bld) 56.9 % Normal [facility] Comment on above: Performed By: #### C BCWD #### [facility] [address] [place] [address] Platelets (Bld) [#/Vol] 244 10*3/uL Normal 130-400 [facility] Comment on above: Performed By: #### C BCWD #### [facility] [address] [place] [address] RBC (Bld) [#/Vol] 4.32 10*6/uL Normal 4.20-5.40 [facility] Comment on above: Performed By: #### C BCWD #### [facility] [address] [place] [address] WBC (Bld) [#/Vol] 4.7 10*3/uL Low 4.8-10.8 [facility] Comment on above: Performed By: #### C BCWD #### [facility] [address] [place] [address] Covid-19 PCR (CVDTB)on 03-01 SARS-CoV-2 (COVID-19) RNA CARIN+probe Ql (Unsp spec) Not detected Normal NOT DETECTED [facility] Comment on above: Result Comment: This test is not yet approved or cleared by the [place] FDA. When there are no FDA-approved or cleared tests available, and other criteria are met, FDA can make tests available under an emergency access mechanism called an Emergency Use Authorization (EUA). The EUA for this test is supported by the Wet Machine Tender of Health and Human Service's (HHS's) declaration [...] consistent with SARS-CoV-2. Performed By: #### [facility] #### [facility] [address] [place] [address] Dr. Galen Kauffman XR CHEST 2 Von [...] IRINA MAXWELL Date: 2021-03-14 12:02 Normal [facility] Complete Blood Count Auto Di ffon 02-04-2021 Basophils (Bld) [#/Vol] 0.0 10*3/uL Normal 0.0-0.2 [facility] Comment on above: Result Comment: PERF ORMED BY: [facility] [address] [place] [address] PATHOLOGIST COMPLIANCE QUALITY PERFORMANCE ANALYST KIMMIE SANDOVAL M.D. Performed By: #### U A, TSH3, CBC, CMP, LIPID #### [facility] [address] Basophils/100 WBC (Bld) 0.5 % Normal . [facility] Comment on above: Performed By: #### U A, TSH3, CBC, CMP, LIPID #### [address] Eosinophils (Bld) [#/Vol] 0.1 10*3/uL Normal 0.0-0.45 [facility] Comment on above: Performed By: #### U A, TSH3, CBC, CMP, LIPID #### [address] Eosinophils/100 WBC (Bld) 1.7 % Normal . [facility] Comment on above: Performed By: #### U A, TSH3, CBC, CMP, LIPID #### [address] Erythrocyte distribution width (RBC) [Ratio] 12.8 % Normal 11.9-15.3 [facility] Comment on above: Performed By: #### U A, TSH3, CBC, CMP, LIPID #### [address] Hematocrit (Bld) [Volume fraction] 40.1 % Normal 34.0-46.4 [facility] Comment on above: Performed By: #### U A, TSH3, CBC, CMP, LIPID #### [address] Hemoglobin (Bld) [Mass/Vol] 13.4 g/dL Normal 11.8-15.4 [facility] Comment on above: Performed By: #### U A, TSH3, CBC, CMP, LIPID #### [address] Lymphocytes (Bld) [#/Vol] 1.2 10*3/uL Normal 1.00-4.8 [facility] Comment on above: Performed By: #### U A, TSH3, CBC, CMP, LIPID #### [address] Lymphocytes/100 WBC (Bld) 25.0 % Normal . [facility] Comment on above: Performed By: #### U A, TSH3, CBC, CMP, LIPID #### [address] MCH (RBC) [Entitic mass] 31.5 pg Normal 24.7-34.3 [facility] Comment on above: Performed By: #### U A, TSH3, CBC, CMP, LIPID #### [address] MCV (RBC) [Entitic vol] 94.6 fL Normal 80-100 [facility] Comment on above: Performed By: #### U A, TSH3, CBC, CMP, LIPID #### [address] Mean Corpuscular HGB Conc 33.4 g/dL Normal 32.0-35.0 [facility] Comment on above: Performed By: #### U A, TSH3, CBC, CMP, LIPID #### [address] Monocytes (Bld) [#/Vol] 0.4 10*3/uL Normal 0.0-0.8 [facility] Comment on above: Performed By: #### U A, TSH3, CBC, CMP, LIPID #### [address] Monocytes/100 WBC (Bld) 8.8 % Normal . [facility] Comment on above: Performed By: #### U A, TSH3, CBC, CMP, LIPID #### [address] Neutrophils (Bld) [#/Vol] 3.1 10*3/uL Normal 1.8-7.7 [facility] Comment on above: Performed By: #### U A, TSH3, CBC, CMP, LIPID #### [address] Neutrophils/100 WBC (Bld) 64.0 % Normal . [facility] Comment on above: Performed By: #### U A, TSH3, CBC, CMP, LIPID #### [place] [address] [place] Nucleated RBC/100 WBC (Bld) [Ratio] 0.1 % Normal 0-0.5 [facility] Comment on above: Performed By: #### U A, TSH3, CBC, CMP, LIPID #### [address] Platelet mean volume (Bld) [Entitic vol] 9.6 fL Normal 6.3-10.7 [facility] Comment on above: Performed By: #### U A, TSH3, CBC, CMP, LIPID #### [address] Platelets (Bld) [#/Vol] 226 10*3/uL Normal 150-450 [facility] Comment on above: Performed By: #### U A, TSH3, CBC, CMP, LIPID #### [address] RBC (Bld) [#/Vol] 4.24 10*6/uL Normal 3.60-5.00 [facility] Comment on above: Performed By: #### U A, TSH3, CBC, CMP, LIPID #### [address] WBC (Bld) [#/Vol] 4.8 10*3/uL Normal 4.5-11.0 [facility] Comment on above: Performed By: #### U A, TSH3, CBC, CMP, LIPID #### [address] Comprehensive Metabolic Pane kendall 02-04-2021 Albumin [Mass/Vol] 3.8 g/dL Normal 3.2-5.5 [facility] Comment on above: Performed By: #### U A, TSH3, CBC, CMP, LIPID #### [address] Albumin/Globulin [Mass ratio] 1.3 {ratio} Normal [facility] Comment on above: Performed By: #### U A, TSH3, CBC, CMP, LIPID #### [place] [address] [place] ALP [Catalytic activity/Vol] 54 U/L Normal 32-92 [facility] Comment on above: Performed By: #### U A, TSH3, CBC, CMP, LIPID #### [facility] [address] [place] [address] ALT [Catalytic activity/Vol] 23 U/L Normal 10-60 [facility] Comment on above: Performed By: #### U A, TSH3, CBC, CMP, LIPID #### [facility] [address] [place] [address] AST [Catalytic activity/Vol] 19 U/L Normal 10-42 [facility] Comment on above: Performed By: #### U A, TSH3, CBC, CMP, LIPID #### [address] Bilirubin [Mass/Vol] 0.9 mg/dL Normal 0.3-1.2 [facility] Comment on above: Performed By: #### U A, TSH3, CBC, CMP, LIPID #### [address] Calcium [Mass/Vol] 9.0 mg/dL Normal 8.2-10.2 [facility] Comment on above: Performed By: #### U A, TSH3, CBC, CMP, LIPID #### [address] Chloride [Moles/Vol] 104 mmol/L Normal 95-114 [facility] Comment on above: Performed By: #### U A, TSH3, CBC, CMP, LIPID #### [facility] [address] [place] [address] [place] CO2 [Moles/Vol] 24.5 mmol/L Normal 22.0-30.0 [facility] Comment on above: Performed By: #### U A, TSH3, CBC, CMP, LIPID #### [address] Creatinine [Mass/Vol] 0.90 mg/dL Normal 0.44-1.03 [facility] Comment on above: Performed By: #### U A, TSH3, CBC, CMP, LIPID #### [address] Estimated GFR ( Frieda > 60 Normal [facility] Comment on above: Result Comment: GFR estimated reference range: According to KDOQI guidelines, <60 ml/min/1.73m2 is sufficient to diagnose a patient with chronic kidney disease. Performed By: #### U A, TSH3, CBC, CMP, LIPID #### [address] Estimated GFR (Non- Am > 60 Normal [facility] Comment on above: Performed By: #### U A, TSH3, CBC, CMP, LIPID #### [address] Globulin (S) [Mass/Vol] 2.9 g/dL Normal [facility] Comment on above: Performed By: #### U A, TSH3, CBC, CMP, LIPID #### [address] Glucose [Mass/Vol] 94 mg/dL Normal 70-100 [facility] Comment on above: Result Comment: [place]ett Glucose Reference Range is dependent on time and content of last meal. Glucose of more than 200 mg/dL in a nonstressed, ambulatory subject supports the diagnosis of Diabetes Mellitus. ADA recommended reference range Performed By: #### U A, TSH3, CBC, CMP, LIPID #### [address] Potassium [Moles/Vol] 4.1 mmol/L Normal 3.5-5.1 [facility] Comment on above: Performed By: #### U A, TSH3, CBC, CMP, LIPID #### [address] Protein [Mass/Vol] 6.7 g/dL Normal 6.1-7.9 [facility] Comment on above: Performed By: #### U A, TSH3, CBC, CMP, LIPID #### [address] Sodium [Moles/Vol] 137 mmol/L Normal 136-146 [facility] Comment on above: Performed By: #### U A, TSH3, CBC, CMP, LIPID #### [facility] [address] Urea nitrogen [Mass/Vol] 14 mg/dL Normal 9-23 [facility] Comment on above: Performed By: #### U A, TSH3, CBC, CMP, LIPID #### [facility] [address] Lipid Panelon 02-04-2021 Cholesterol [Mass/Vol] 229 mg/dL High 140-200 [facility] Comment on above: Result Comment: Chol less than 200 mg/dl low risk Chol 201-239 mg/dl borderline risk Chol 240 mg/dl and greater high risk Performed By: #### U A, TSH3, CBC, CMP, LIPID #### [facility] [address] Cholesterol in HDL [Mass/Vol] 69 mg/dL Normal 35-85 [facility] Comment on above: Result Comment: HDL CHOL ATP-III CLASSIFICATION Cardiovascular Risk HDL > or equal to 60 mg/dL LOW HDL < 40 mg/dL HIGH Performed By: #### U A, TSH3, CBC, CMP, LIPID #### [facility] [address] Cholesterol.total/ Cholesterol in HDL [Mass ratio] 3.3 {ratio} Normal <5.0 [facility] Comment on above: Performed By: #### U A, TSH3, CBC, CMP, LIPID #### [facility] [address] LDL Cholesterol,Calcul ated 131 mg/dL High 0-100 [facility] Comment on above: Result Comment: LDL ATP III CLASSIFICATION LDL less than 100 mg/dL Optimal LDL 100-129 mg/dL Near or above optimal LDL 130-159 mg/dL Borderline high LDL 160-189 mg/dL High LDL greater than 189 mg/dL Very high Performed By: #### U A, TSH3, CBC, CMP, LIPID #### [facility] [address] [place] [address] [place] Triglyceride w/Reflex 145 mg/dL Normal 35-149 [facility] Comment on above: Result Comment: TRIG ATP III CLASSIFICATION TRIG less than 150 mg/dL Normal TRIG 150-199 mg/dL Borderline high TRIG 200-500 mg/dL High TRIG greater than 500 mg/dL Very high Standard traceable to the Center for Disease Conrtrol and Prevention (CDC) test method. Performed By: #### U A, TSH3, CBC, CMP, LIPID #### [address] VLDL CHOLESTEROL 29 mg/dL Normal [facility] Comment on above: Performed By: #### U A, TSH3, CBC, CMP, LIPID #### [address] Thyroid Stimulating Hormoneo n 02-04-2021 TSH Qn 2.37 m[IU]/L Normal 0.45-5.33 [facility] Comment on above: Result Comment: PERF ORMED BY: [place] [address] PATHOLOGIST COMPLIANCE QUALITY PERFORMANCE ANALYST KIMMIE SANDOVAL M.D. Performed By: #### U A, TSH3, CBC, CMP, LIPID #### [address] Urinalysison 02-04-2021 Appearance (U) Clear Normal Clear [facility] Comment on above: Order Comment: Name Collection Type:: Clean-Voided Midstream Performed By: #### U A, TSH3, CBC, CMP, LIPID #### [address] Bilirubin,Urine Negative Normal Negative [facility] Comment on above: Order Comment: Name Collection Type:: Clean-Voided Midstream Performed By: #### U A, TSH3, CBC, CMP, LIPID #### [address] Color (U) Yellow Normal Yellow [facility] Comment on above: Order Comment: Name Collection Type:: Clean-Voided Midstream Performed By: #### U A, TSH3, CBC, CMP, LIPID #### [address] Glucose Ql (U) Normal Normal Normal [facility] Comment on above: Order Comment: Name Collection Type:: Clean-Voided Midstream Performed By: #### U A, TSH3, CBC, CMP, LIPID #### [address] Ketones Ql (U) Negative Normal Negative [facility] Comment on above: Order Comment: Name Collection Type:: Clean-Voided Midstream Performed By: #### U A, TSH3, CBC, CMP, LIPID #### [address] Leukocyte esterase Test strip Ql (U) Negative Normal Negative [facility] Comment on above: Order Comment: Name Collection Type:: Clean-Voided Midstream Performed By: #### U A, TSH3, CBC, CMP, LIPID #### [address] Nitrite,Urine Negative Normal Negative [facility] Comment on above: Order Comment: Name Collection Type:: Clean-Voided Midstream Performed By: #### U A, TSH3, CBC, CMP, LIPID #### [address] Occult Blood,Urine Negative Normal Negative [facility] Comment on above: Order Comment: Name Collection Type:: Clean-Voided Midstream Result Comment: PERF ORMED BY: [place] [address] PATHOLOGIST COMPLIANCE QUALITY PERFORMANCE ANALYST KIMMIE SANDOVAL M.D. Performed By: #### U A, TSH3, CBC, CMP, LIPID #### [place] [address] [place] pH (U) 6.0 [pH] Normal 5.0-9.0 [facility] Comment on above: Order Comment: Name Collection Type:: Clean-Voided Midstream Performed By: #### U A, TSH3, CBC, CMP, LIPID #### [address] Protein,Urine Negative Normal Negative [facility] Comment on above: Order Comment: Name Collection Type:: Clean-Voided Midstream Performed By: #### U A, TSH3, CBC, CMP, LIPID #### [address] Specificy [place],Urine 1.026 Normal 1.001-1.030 [facility] Comment on above: Order Comment: Name Collection Type:: Clean-Voided Midstream Performed By: #### U A, TSH3, CBC, CMP, LIPID #### [address] Urobilinogen,Urine Normal Normal Normal [facility] Comment on above: Order Comment: Name Collection Type:: Clean-Voided Midstream Performed By: #### U A, TSH3, CBC, CMP, LIPID #### [facility] [address] [place] [address] Brandan 02-15-2020 CNPN Telephone (BARBARAFV) -- JOHANNY VILLEGAS ([id number]) 1990 F Date Time Provider Department 02/15/20 KIRAN ZAMUDIO) GONZALO During your visit today, we recorded the following information about you: Allergies As of Date: 02/15/2020 (No Known Allergies) Date Reviewed: 02/12/2020 Reviewed by: Naav (Darline) DARLINE Chavez - Fully Assessed Reason [...] Encounter Status:Closed by KIRAN ZAMUDIO on 02/15/20 [facility] ANES POSTPROC EVALon 020 ANES POSTPROC EVAL HNO ID: [id number] Author: Jose Montoya I Service: ? Author Type: Anesthesiologist Type: Anesthesia Postprocedure Evaluation Filed: 02/11/2020 9:38 AM Note Text: POST ANESTHESIA EVALUATION NOTE : 1990 Procedure Summary Date: 02/10/20 Room / Location: [place] [address] / OB Anesthesia Start: 955 Anesthesia Stop: [...] 02/11/20 0821 SpO2 100 % 02/11/20 0821 Karli Villegas [[id number]] Baby Delivery: 02/10/2020 1024 Post Anesthesia Patient [...] February 11, 2020 TIME: 9:37 AM CSN: [id number] [facility] CASE MGT INIT Arturo 2019 CASE MGT INIT POONAM HNO ID: [id number] Author: Christina Murphy (Sw) Service: ? Author Type: Ironing Worker Type: Care Mgt Initial Assessment Filed: 02/11/2020 2:52 PM Note Text: CARE MANAGEMENT: ASSESSMENT AND DISCHARGE PLAN SERVICE DATE: February 11, 2020 SERVICE TIME: 2:43 PM PRIMARY CARE PHYSICIAN: No primary care provider on file. Phone: None ADMISSION STATUS: Inpatient Needs Prior to Discharge: None MEDICAL: BLUE ACCESS PPO Patient/Charter Coordinator Stated Goals: To return home to life as it was Health Insurance: [employer] Issues Impacting Discharge Plan: None Last [...] None Has the Patient Been in a Senior Care Facility in the Past 30 days?: No SOCIAL: Living Arrangements: Home Lives With: Spouse;Son Financial Resources: Employed Primary Contact: Extended Emergency Contact Information Primary Emergency Contact: Ar Villegas Mobile Relation: Spouse Supportive Patient Contact:: Yes Contact Resources: Family Family Name/Phone: : Ar Villegas Social Needs Food insecurity Worry: Never true [...] Completely I feel financially burdened by my osa-bi-cpktpa expenses for my prescription medication:: 0 - [...] child sleep? Crib FREEDOM OF CHOICE EXPLAINED: [place] of Choice Given: No Reason Not Given: No placements necessary POTENTIAL TRANSITION PLANS Home;Other: See Comment(PPD: Pt will continue Celexa 40 mg, will monitor for breakthrough s/s, will continue to follow with her current behavioral health provider as well) Pt is a 29 year old s/p delivery of baby girlPia, on 02/10/20. SW consult ordered d/t Pt [...] Pt reported the following: She lives in [place] with FOB and their 3 year old [...] private insurance and will take baby to [facility] (Dr. Sinha) for pediatric follow up. Pt has a strong support system including friends and family. She reports no additional needs at this time. SW will remain available if additional needs arise. SIGNATURE: JENNY Jeronimo PATIENT NAME: Johanny Villegas DATE: February 11, 2020 TIME: 2:43 PM PAGER/CONTACT #: [phone] Normal [facility] CBCon 02-11-2020 Absolute nRBC <0.01 Normal <0.01 [facility] Comment on above: Performed By: #### C BC ####[place] [phone] Erythrocyte distribution width (RBC) [Ratio] 13.2 % Normal 11.5-15.0 [facility] Comment on above: Performed By: #### C BC ####[place] [phone] Hematocrit (Bld) [Volume fraction] 34.1 % Low 36.0-46.0 [facility] Comment on above: Performed By: #### C BC ####[place] [id number] [place] [phone] Hemoglobin (Bld) [Mass/Vol] 11.4 g/dL Low 11.5-15.5 [facility] Comment on above: Performed By: #### C BC ####[place] [phone] MCH (RBC) [Entitic mass] 33.7 pG Normal 26.0-34.0 [facility] Comment on above: Performed By: #### C BC ####[address] [phone] MCHC (RBC) [Mass/Vol] 33.4 g/dL Normal 30.5-36.0 [facility] Comment on above: Performed By: #### C BC ####[facility] [place], [place] [phone] MCV (RBC) [Entitic vol] 100.9 fL High 80.0-100.0 [facility] Comment on above: Performed By: #### C BC ####[facility] [place] [address] [phone] Platelet mean volume (Bld) [Entitic vol] 10.8 fL Normal 9.0-12.7 [facility] Comment on above: Performed By: #### C BC ####[address] [phone] Platelets (Bld) [#/Vol] 177 10*3/uL Normal 150-400 [facility] Comment on above: Performed By: #### C BC ####[facility] [place], [place] [phone] RBC (Bld) [#/Vol] 3.38 10*6/uL Low 3.90-5.20 [facility] Comment on above: Performed By: #### C BC ####[facility] [place] [address] [phone] WBC (Bld) [#/Vol] 8.95 10*3/uL Normal 3.70-11.00 [facility] Comment on above: Performed By: #### C BC ####[facility] [place], [place] [phone] PLAN OF CAREon 02-11-2020 PLAN OF CARE HNO ID: [id number] Author: Stephanie Lopez (Drill Operator Pneumatic) Service: ? Author Type: ? Type: Plan of Care Filed: 02/11/2020 6:03 PM Note Text: PHARMACY BEDSIDE DELIVERY SERVICE Patient Name: Johanny Villegas The marked outpatient medications were Filled at: [facility] and delivered to the patient's bedside to -30 Medication List START taking these medications acetaminophen [...] Generic drug: aspirin, enteric coated Stephanie Lopez ([employer]) PAGER: [phone] February 11, 2020 6:02 PM [facility] PLAN OF CARE HNO ID: [id number] Author: Stephanie Lopez ([employer]) Service: ? Author Type: ? Type: Plan of Care Filed: 02/11/2020 6:02 PM Note Text: Pharmacy Discharge Medication Service: This patient has elected to receive their discharge prescriptions through the [facility] Bedside Prescription Delivery program. The prescriptions are currently being processed. A follow-up note will be entered once the prescriptions have been filled and delivered to the patient. Please contact me with any questions or updates to the patient's discharge medications. Stephanie Lopez ([employer]) DCT Contact Info: [id number] [facility] CARE HNO ID: [id number] Author: Stephanie Lopez ([employer]) Service: ? Author Type: ? Type: Plan of Care Filed: 02/11/2020 6:02 PM Note Text: MARKETING PROPOSAL COORDINATOR BEDSIDE DELIVERY SURVEY 1. Patient to use [facility] Bedside Delivery - YES Insurance Information as follows: 2. Insurance card on file - YES 3. Credit card for payment - N/A [facility] PROGRESSon 02-11-2020 PROGRESS HNO ID: [id number] Author: Sara Angel Service: Obstetrics Author Type: Nurse Practitioner [...] DATE: February 11, 2020 TIME: 8:37 AM [facility] ANES PRE-OPon 02-10-2020 ANES PRE-OP HNO ID: [id number] Author: Maggie Malik (Aa) Service: ? Author Type: Line Tender Flakeboard Type: Anesthesia Preprocedure Evaluation Filed: 02/10/2020 9:02 AM Note Text: -- Attestation signed by Jose Montoya I at 02/10/2020 10:08 AM Attending Note I have personally performed a face to face assessment of the patient and have reviewed the DIRECTOR OF RADIO SERVICES/AA note. My fulton findings include: Assessment/Plan are as documented. Other additions or changes: None Signature: Jose Montoya MD Date: February 10, 2020 Time: 9:30 AM -- OB ANESTHESIA PRE-PROCEDURE ASSESSMENT PATIENT NAME: Johanny Villegas : 1990 [facility] PRODUCTION TRAINER: Previous OB anesthetic: Spinal Emergent primary C/S [...] complications or contraindication to planned procedure: none. EPIC CHART REVIEW: ACTIVE PROBLEM LIST Previous Delivery [...] Disp: , Rfl: Inpatient medications reviewed in [facility] I have interviewed and examined the patient. I have reviewed the medical record and/or the pre-anesthesia evaluation, pertinent labs, and test results. This contains updated information obtained within 48 hours of Surgery/Procedure. SIGNATURE: SILVER Issa PATIENT NAME: Johanny Villegas DATE: February 10, 2020 TIME: 8:57 AM : 1990 Normal [facility] Blood Gases,Cord,Art (For Fa irview and HIL)on 02-10-2020 Base Deficit 2.3 mmol/L Low 4.4-8.3 [facility] Comment on above: Performed By: #### C OBG, GASCV #### [place] [address] HCO3 (Bld) [Moles/Vol] 25 mmol/L Normal 17-27 [facility] Comment on above: Performed By: #### C OBG, GASCV #### [place] [address] pCO2 54 mm Hg Normal 32-66 [facility] Comment on above: Performed By: #### C OBG, GASCV #### [place] [address] pH (Bld) 7.29 [pH] Normal 7.18-7.38 [facility] Comment on above: Performed By: #### C OBG, GASCV #### [place] [address] Blood Gases,Cord,Venon 02-09 Base Excess Negative Normal [facility] Comment on above: Performed By: #### C OBG, GASCV #### [place] [address] HCO3 (Bld) [Moles/Vol] 23 mmol/L Normal 15-25 [facility] Comment on above: Performed By: #### C OBG, GASCV #### [place] [address] Oxygen (Bld) [Partial pressure] mm[Hg] High 5.5-30.5 [facility] Comment on above: Performed By: #### C OBG, GASCV #### [facility] [address] [place] [phone] pCO2 45 mm Hg Normal 27-49 [facility] Comment on above: Performed By: #### C OBG, GASCV #### [place] [phone] [phone] pH (Bld) 7.33 [pH] Normal 7.20-7.40 [facility] Comment on above: Performed By: #### C OBG, GASCV #### [place] [id number] [place] [phone] CBCon 02-10-2020 Absolute nRBC <0.01 Normal <0.01 [facility] Comment on above: Performed By: #### C BC ####[place] [phone] Erythrocyte distribution width (RBC) [Ratio] 13.0 % Normal 11.5-15.0 [facility] Comment on above: Performed By: #### C BC ####[place] [phone] Hematocrit (Bld) [Volume fraction] 35.4 % Low 36.0-46.0 [facility] Comment on above: Performed By: #### C BC ####[place] [phone] Hemoglobin (Bld) [Mass/Vol] 12.2 g/dL Normal 11.5-15.5 [facility] Comment on above: Performed By: #### C BC ####[place] [phone] MCH (RBC) [Entitic mass] 33.7 pG Normal 26.0-34.0 [facility] Comment on above: Performed By: #### C BC ####[place] [phone] MCHC (RBC) [Mass/Vol] 34.5 g/dL Normal 30.5-36.0 [facility] Comment on above: Performed By: #### C BC ####[address] [phone] MCV (RBC) [Entitic vol] 97.8 fL Normal 80.0-100.0 [facility] Comment on above: Performed By: #### C BC ####[address] [phone] Platelet mean volume (Bld) [Entitic vol] 11.0 fL Normal 9.0-12.7 [facility] Comment on above: Performed By: #### C BC ####[address] [phone] Platelets (Bld) [#/Vol] 213 10*3/uL Normal 150-400 [facility] Comment on above: Performed By: #### C BC ####[address] [phone] RBC (Bld) [#/Vol] 3.62 10*6/uL Low 3.90-5.20 [facility] Comment on above: Performed By: #### C BC ####[place] [phone] WBC (Bld) [#/Vol] 7.90 10*3/uL Normal 3.70-11.00 [facility] Comment on above: Performed By: #### C BC ####[address] [phone] OPERATIVE NOon 02-10-2020 OPERATIVE NO HNO ID: [id number] Author: Ayana Ly Service: Gynecology Author Type: Physician Type: Operative Report Filed: 02/11/2020 12:52 PM Note Text: OBSTETRICS OPERATIVE REPORT - SECTION Log ID: [id number] Surgery Date: 02/10/2020 Incision/Procedure Start Time: 10:15 AM Incision Close/Procedure End Time: 11:09 AM Gestational Age at Delivery: 37w0d Primary Reason for Delivery Today: Prior Intrauterine Demise Additional Clinical Indicators for Delivery: Scheduled Cesearean Section Indication for : Additional Pre-Op Details (if applicable): Prior c/s x2 Postop Diagnosis: Same as pre-op diagnosis Surgeon(s) and Supervisor Irrigation(s): Surgeon(s) and Role: * Ayana Ly - Primary Physician Supervisor Irrigation: Chema Keys Procedure(s): SECTION REPEAT: 97681 (CPT?) Anesthesia: Spinal Information for the patient's : Karli Villegas [[id number]] Type: , Low Transverse Operative Findings: Weight: [...] was extended manually in a superolateral fashion. Infant was delivered from a from a cephalic position atraumatically. Cord was clamped and cut, and infant was handed off to awaiting staff. Cord [...] time. SIGNATURE: Ayana Ly MD PATIENT NAME: Jhoanny Villegas DATE: February 10, 2020 TIME: 11:05 AM Normal [facility] Pre Delivery T+Son 0 ABO/RH(D) Positive Normal [facility] Comment on above: Performed By: #### P VANNESSA ####[address] [phone] CBCon 12-25-2019 Absolute nRBC <0.01 Normal <0.01 [facility] Comment on above: Performed By: #### C COLLINS, CMP #### [place] [phone] Erythrocyte distribution width (RBC) [Ratio] 12.8 % Normal 11.5-15.0 [facility] Comment on above: Performed By: #### C BC, CMP #### [place] [phone] Hematocrit (Bld) [Volume fraction] 34.8 % Low 36.0-46.0 [facility] Comment on above: Performed By: #### C BC, CMP #### [address] [address] Hemoglobin (Bld) [Mass/Vol] 11.7 g/dL Normal 11.5-15.5 [facility] Comment on above: Performed By: #### C BC, CMP #### [place] [address] MCH (RBC) [Entitic mass] 33.6 pG Normal 26.0-34.0 [facility] Comment on above: Performed By: #### C BC, CMP #### [place] [address] MCHC (RBC) [Mass/Vol] 33.6 g/dL Normal 30.5-36.0 [facility] Comment on above: Performed By: #### C BC, CMP #### [place] [phone] MCV (RBC) [Entitic vol] 100.0 fL Normal 80.0-100.0 [facility] Comment on above: Performed By: #### C BC, CMP #### [place] [address] Platelet mean volume (Bld) [Entitic vol] 10.2 fL Normal 9.0-12.7 [facility] Comment on above: Performed By: #### C BC, CMP #### [place] [address] Platelets (Bld) [#/Vol] 209 10*3/uL Normal 150-400 [facility] Comment on above: Performed By: #### C BC, CMP #### [place] [address] RBC (Bld) [#/Vol] 3.48 10*6/uL Low 3.90-5.20 [facility] Comment on above: Performed By: #### C BC, CMP #### [place] [id number] WBC (Bld) [#/Vol] 9.95 10*3/uL Normal 3.70-11.00 [facility] Comment on above: Performed By: #### C BC, CMP #### [address] [address] Comp Metabolic Panelon 12-24 Albumin [Mass/Vol] 3.5 g/dL Normal 3.5-5.0 [facility] Comment on above: Performed By: #### C BC, CMP ####[place] [phone] ALP [Catalytic activity/Vol] 131 U/L High 34-123 [facility] Comment on above: Performed By: #### C BC, CMP ####[place] [phone] ALT [Catalytic activity/Vol] 15 U/L Normal 0-45 [facility] Comment on above: Performed By: #### C BC, CMP ####[place] [phone] Anion gap [Moles/Vol] 11 mmol/L Normal 9-18 [facility] Comment on above: Performed By: #### C BC, CMP ####[place] [phone] AST [Catalytic activity/Vol] 20 U/L Normal 7-40 [facility] Comment on above: Performed By: #### C BC, CMP ####[place] [phone] Bilirubin [Mass/Vol] 0.3 mg/dL Normal 0.2-1.3 [facility] Comment on above: Performed By: #### C BC, CMP ####[place] [phone] Calcium [Mass/Vol] 9.4 mg/dL Normal 8.5-10.5 [facility] Comment on above: Performed By: #### C BC, CMP ####[place] [phone] Chloride [Moles/Vol] 101 mmol/L Normal 98-110 [facility] Comment on above: Performed By: #### C BC, CMP ####[place] [phone] CO2 [Moles/Vol] 22 mmol/L Low 23-32 [facility] Comment on above: Performed By: #### C BC, CMP ####[place] [phone] Creatinine [Mass/Vol] 0.61 mg/dL Low 0.70-1.40 [facility] Comment on above: Performed By: #### C BC, CMP ####[place] [phone] eGFR- Amer. >60 Normal >60 [facility] Comment on above: Performed By: #### C BC, CMP ####[place] [phone] GFR/1.73 sq M predicted among non-blacks MDRD (S/P/Bld) [Vol rate/Area] mL/min/{1.73_m2} Normal >60 [facility] Comment on above: Performed By: #### C BC, CMP ####[place] [phone] Glucose [Mass/Vol] 80 mg/dL Normal 65-100 [facility] Comment on above: Performed By: #### C BC, CMP ####[place] [phone] Potassium [Moles/Vol] 3.8 mmol/L Normal 3.5-5.0 [facility] Comment on above: Performed By: #### C BC, CMP ####[place] [phone] Protein [Mass/Vol] 6.2 g/dL Normal 6.0-8.4 [facility] Comment on above: Performed By: #### C BC, CMP ####[place] [phone] Sodium [Moles/Vol] 134 mmol/L Normal 132-148 [facility] Comment on above: Performed By: #### C BC, CMP ####[facility] [place], [place] [phone] Urea nitrogen [Mass/Vol] 9 mg/dL Normal 11-23 [facility] Comment on above: Performed By: #### C BC, CMP ####[facility] [place], [place] [phone] HOSPon 12-25-2019 HOSP Patient:Jamie Villegas MRN: Height:5' [...] 35.4 % 02/10/2020 46.0 36.0 Progress Notes (ROSS FURNACE OPERATOR [facility]): Kenny Petty MD 02/08/2020 12:28 PM Signed [...] I SIGNATURE: Kenny Petty MD Progress Notes (ROSS FURNACE OPERATOR [facility] 345): Lissette Duvall MD 02/05/2020 4:19 PM Signed Patient here for testing due to history IUFD BP 11/06 See ultrasound for report. Lissette Duvall MD [facility] PROCEDUREon 12-25-2019 PROCEDURE HNO ID: [id number] Author: Harriet JohnsonRn) Yg, RN Service: Nursing Author Type: Registered Nurse Type: [...] Start Time: 1113 (12/25/19 1154 : Harriet JohnsonRn) Yg, RN) Complete Time: 1140 (12/25/19 1140 : Harriet JohnsonRn) Stayner, RN) Indications: Other: Comment(h/a, lt shoulder pain, [...] DATE: December 25, 2019 TIME: 11:56 AM Normal [facility] PROGRESSon 12-25-2019 PROGRESS HNO ID: [id number] Author: Svetlana Lau Service: Obstetrics Author Type: [...] No history of dysuria, frequency or incontinence GRAY TENDER: Negative for abnormal vaginal bleeding, abnormal vaginal [...] 25, 2019 TIME: 5:45 PM PAGER/CONTACT #: [facility] PROGRESS HNO ID: [id number] Author: Svetlana Lau Service: Obstetrics Author Type: [...] No history of dysuria, frequency or incontinence GRAY TENDER: Negative for abnormal vaginal bleeding, abnormal vaginal [...] 2019 TIME: 5:45 PM PAGER/CONTACT #: Normal [facility] Type and Scr,Prenatlon 04-11 ABO/RH(D) Positive Normal [facility] CORD BLD ABO RH DIRECT COOMB Son 07-30-2018 ABO and Rh group Nom (Bld) Direct Haim Cord Negative ABO RH CORD BLOOD A Rh Negative Normal [facility] Comment on above: Performed By: #### C ORD #### [facility] [address] [place], [place] [address] Yomaira Branham CORD BLOOD PHon 07-29-2018 pH CORD ARTERIAL 6.912 Critically low 7.090-7.390 [facility] Comment on above: Performed By: #### C ORDPH #### [facility] [address] [place], [place] [address] Yomaira Branham pH CORD VENOUS 7.228 Normal 7.190-7.450 The [facility] Comment on above: Performed By: #### C ORDPH #### [facility] [address] [place] [phone] Yomaira Branham Vital Signs Date Time Vital Sign Value Performing Clinician Facility 09-28-2024 15:49-0400 Body height 172.7 cm Cyrus Gomes DPM Work Phone: [facility] 09-28-2024 15:49-0400 Body mass index (BMI) [Ratio] 25.09 kg/m2 Cyrus Gomes DPM Work Phone: [facility] 09-28-2024 15:49-0400 Body weight 74.84 kg Cyrus Gomes DPM Work Phone: [facility] 07-06-2024 14:32-0400 Body height 172.72 cm [facility] 07-06-2024 14:32-0400 Body mass index (BMI) [Ratio] 25.7 kg/m2 [facility] 07-06-2024 14:32-0400 Body temperature 98.1 [degF] [facility] 07-06-2024 14:32-0400 Body weight 76.65 kg [facility] 07-06-2024 14:32-0400 Diastolic blood pressure 72 mm[Hg] [facility] 07-06-2024 14:32-0400 Heart rate 97 /min [facility] 07-06-2024 14:32-0400 SaO2% (BldA) [Mass fraction] 97 % [facility] 07-06-2024 14:32-0400 Systolic blood pressure 108 mm[Hg] [facility] 11-28-2023 09:21-0400 Body height 170.2 cm Ayana Ly MD Work Phone: [facility] 11-28-2023 09:21-0400 Body mass index (BMI) [Ratio] 26.24 kg/m2 Ayana Ly MD Work Phone: [facility] 11-28-2023 09:21-0400 Body weight 76 kg Ayana Ly MD Work Phone: [facility] 11-28-2023 09:21-0400 Diastolic blood pressure 72 mm[Hg] Ayana Ly MD Work Phone: [facility] 11-28-2023 09:21-0400 Systolic blood pressure 114 mm[Hg] Ayana Ly MD Work Phone: [facility] 10-16-2023 15:29-0400 Body height 172.72 cm [facility] 10-16-2023 15:29-0400 Body mass index (BMI) [Ratio] 25.8 kg/m2 [facility] 10-16-2023 15:29-0400 Body temperature 98.8 [degF] [facility] 10-16-2023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 Notes* Telephone Encounter - Regina Phillips LPN - 06/27/2022 9:27 AM EDT Refill request for OCP's Last Rx given 07/26/2021 LEANDRO 07/26/2021 NOV 07/31/2022 Thank you, Regina Phillips LPN documented in this encounterVeterans Health Administration10-13-2022 Evaluation note* Encounter Date Diagnosis Assessment Notes Treatment Notes Treatment Clinical Notes Dec, Seizure disorder (ICD-10 - G40.909) [...] (ICD-10 - L72.9) She did see a visiting professor at [facility] for evaluation and was referred to Dr. Baker in [place] through the [facility], and he removed the lesion from her [...] checked she can call for an order. [employer] Other 10-05-2022 History of Present illness Narrative* Natalya Galdamez LPN - 01/03/2022 12:16 PM EDT Ice pack applied to posterior right knee. [facility] [employer] Phone: 1(419) 662-612007-11-2022 Evaluation note* Encounter Date Diagnosis Assessment Notes Treatment Notes Treatment Clinical Notes Sep, Contact dermatitis (ICD-10 - L25.9) [employer] Other 06-30-2022 Evaluation note* Encounter Date Diagnosis [...] out. Aug, Other She voices that her hand cooper helper recommends that she continue with the Fludrocortisone because her blood pressure still runs low. While she is on the steroids she is to hold the medication until the day after she has finished the Prednisone and then she can restart the medication. 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 documented in this encounterVeterans Health Administration12-15-2021 Evaluation note* Encounter Date Diagnosis Assessment Notes Treatment Notes Treatment Clinical Notes Mar, Cough (ICD-10 - R05.9) Her COVID-19 PCR test was negative on 03-14-21. I did review her chest x-ray results with her which were negative. She voices that everyone in her house was fighting a sinus infection around [facility], but she is the only one [...] She could start with a couch to [employer] program. Mar, Cyst of skin (ICD-10 - L72.9) Noted on back of right knee. Either a cyst or dermatofibroma. She voices that it has been present for one year and has gotten larger. If it is a dermatofibroma it will get larger any time it is damaged, such as being knicked after shaving. She can see a visiting professor or a plastic surgeon for evaluation if she would like to have this removed. This does not bleed on it's own. It will not likely resolve on it's own. She is going to think about who she would like to see. She can call if she needs a referral. [employer] Other [phone] History of Past illness Narrative* Problem Noted [...] of this encounter (statuses as of 07/26/2021) [facility]07-31-2020 History of Past illness Narrative* Problem Noted [...] of this encounter (statuses as of 06/27/2022) [facility]07-31-2020 History of Past illness Narrative* Problem Noted [...] of this encounter (statuses as of 09/21/2022) [facility]07-31-2020 History of Past illness Narrative* Problem Noted [...] of this encounter (statuses as of 12/11/2022) [facility]* Diagnosis Encounter for gynecological examination (general) (routine) without abnormal findings- Primary Encounter for screening breast examination Oral contraceptive pill surveillance Surveillance of previously prescribed contraceptive pill Low libido Decreased libido documented in this encounter [facility] noteNo [employer] Other Evaluation note* Diagnosis Sebaceous cyst documented in this encounter [facility] [email or web address] Phone: evaluation note* Diagnosis Encounter for gynecological examination (general) (routine) without abnormal findings- Primary Screening for cervical cancer Screening for malignant neoplasm of the cervix Encounter for screening for human papillomavirus (HPV) Special screening examination for human papillomavirus (HPV) Encounter for surveillance of contraceptive pills Surveillance of previously prescribed contraceptive pill Breast pain, left Mastodynia documented in this encounter [facility] noteNo assessment information availableMemorial [facility] Work Phone: Evaluation note* Diagnosis Encounter for gynecological examination (general) (routine) without abnormal findings- Primary documented [facility] this encounter [facility]* Diagnosis Hallux limitus, right- Primary Bone spur of right foot Other synovitis and tenosynovitis, right ankle and foot Arthralgia of right foot Equinus contracture of right ankle documented in this encounter [facility] Narrative - Reported* Type Description Date Medical History seizures Medical History neurocardiogenic sycope Surgical History 3 C- sections Surgical History tonsils and adenoids removed at age 4 Hospitalization History see above [employer] Other Reason for referral (narrative)* Diagnostic Procedure Only (Routine) - Pending Review Specialty Diagnoses / Procedures Referred By Julienne kearns Referred To Contact [facility] Diagnoses Breast pain, left Procedures US BREAST LTD LEFT US BREAST UNI [place] [id number] [place] [address] [facility] [address] [place] [address] Referral ID Status Reason Start Date Expiration Date Visits Requested Visits Authorized [id number] Pending Review Auto-Generat ed Referral 09/21/2022 10/21/2023 1 1 * Diagnostic Procedure Only (Routine) - Pending Review Specialty Diagnoses / Procedures Referred By Julienne kearns Referred To Contact [facility] Diagnoses Breast pain, left Procedures RYAN DIAGNOSTIC LEFT DIAGNOSTIC MAMMOGRAPHY COMPUTER-[place]ED [place] [id number] [place] [address] [facility] [address] [place] [address] Referral ID Status Reason Start Date Expiration Date Visits Requested Visits Authorized [id number] Pending Review Auto-Generat ed Referral 09/21/2022 10/21/2023 1 1 [facility] Summary Purpose Family History No Family History Records Found Relationship Condition Age at Onset Recorded Date/T candido father Family history of colon cancer Unknown Malignant neoplasm Unknown family member Unknown Relationship Condition Age at Onset Recorded Date/T candido father Family history of colon cancer Unknown Malignant neoplasm Unknown Malignant neoplasm of prostate Unknown Hereditary nonpolypo sis colorectal cancer (HNPCC) syndrome Unknown family member Unknown Advance Directives No Advanced Directives Records FoundDocuments on File Type Date Recorded Patient Charter Coordinator Expl anation Advance Directive(s) 02/02/2020 11:32 AM Advance Directive(s) 12/25/2019 12:50 PM Advance Directive Response Recorded Date/ Time Advance Directives No February 07, 2021 2:05pm Hospital Course Note HNO ID: [id number] Author: Savannah Kearns (Mehul) Jeanne Service: Obstetrics [...] PROCEDURES/SURGERY DURING HOSPITALIZATION: Delivery Summary: Karli Villegas [[id number]] Delivery Information: Delivery Date: (more content not included)... Note HNO ID: [id number] Author: Nabeel Montoya I Service: ? 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 Note HNO ID: [id number] Author: Lino Ly Service: Gynecology Author Type: Physician Type: LANDD Delivery Note Filed: 02/10/2020 11:03 AM Note Text: OBSTETRICS - BRIEF OPERATIVE NOTE DELIVERY SUMMARY: Log ID: [id number] Surgery Date: 02/10/2020 Incision/Procedure Start Time: 10:15 AM Incision Close/Procedure End Time: Gestational Age at Delivery: 37w0d Primary Reason for Delivery Today: Prior Intrauterine Demise Additional Clinical Indicators for Delivery: Scheduled Cesearean Section Indication for : Additional Pre-Op Details (if applicable): previous x 2 Postop Diagnosis: Same as pre-op diagnosis Surgeon(s) and Supervisor Irrigation(s): Surgeon(s) and Role: * Ayana Ly - Primary Physician Supervisor Irrigation: Chema Keys Procedures and Anesthesia: Procedure(s) and Anesthesia Type: * SECTION REPEAT - Spinal Information for the patient's : Karli Villegas [[id number]] Type: , Low Transverse Categorization: Repeat Ope (more content not included)... Procedure Findings Note HNO ID: [id number] Author: Nabeel Montoya I Service: ? 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 Note HNO ID: [id number] Author: Lino Ly Service: Gynecology Author Type: Physician Type: LANDD Delivery Note Filed: 02/10/2020 11:03 AM Note Text: OBSTETRICS - BRIEF OPERATIVE NOTE DELIVERY SUMMARY: Log ID: [id number] Surgery Date: 02/10/2020 Incision/Procedure Start Time: 10:15 AM Incision Close/Procedure End Time: Gestational Age at Delivery: 37w0d Primary Reason for Delivery Today: Prior Intrauterine Demise Additional Clinical Indicators for Delivery: Scheduled Cesearean Section Indication for : Additional Pre-Op Details (if applicable): previous x 2 Postop Diagnosis: Same as pre-op diagnosis Surgeon(s) and Supervisor Irrigation(s): Surgeon(s) and Role: * Ayana Ly - Primary Physician Supervisor Irrigation: Chema Keys Procedures and Anesthesia: Procedure(s) and Anesthesia Type: * SECTION REPEAT - Spinal Information for the patient's : Karli Villegas [[id number]] Type: , Low Transverse Categorization: Repeat Ope (more content not included)... Chief Complaint and Reason for Visit Chief Complaint Rash, exposed to poi son krys Chief Complaint Admit Date wellness July 06, 2024 2:45 pm Reason for Visit Admit Date Anxiety July 06, 2024 2:45 pm Hypothyroidism July 06, 2024 2:45 pm Neurocardiogenic syncope July 06, 2024 2:45pm Seizure disorder July 06, 2024 2:45 pm Wellness examination July 06, 2024 2:4 5pm Additional Source Comments INFORMATION SOURCE (unrecogn ized section and content) DATE CREATED AUTHOR 08/18/2018 [facility] DATE CREATED AUTHOR AUTHOR'S ORGANIZ ATION 04/11/2019 [facility] DATE CREATED AUTHOR AUTHOR'S ORGANIZ ATION 02/16/2020 [facility] DATE CREATED AUTHOR AUTHOR'S ORGANIZ ATION 03/19/2021 [facility] DATE CREATED AUTHOR AUTHOR'S ORGANIZ ATION 04/25/2021 [facility] DATE CREATED AUTHOR AUTHOR'S ORGANIZ ATION 01/02/2022 [facility] DATE CREATED AUTHOR AUTHOR'S ORGANIZ ATION 01/04/2022 [facility] DATE CREATED AUTHOR AUTHOR'S ORGANIZ ATION 10/01/2022 [facility] DATE CREATED AUTHOR AUTHOR'S ORGANIZ ATION 09/29/2024 [facility] dical Specialists EPIC Source Comments (unrecognize d section and content) In the event this informatio n is protected by the Federal Confidentiality of Alcohol and Drug Abuse Patient Records regulations: The Federal rules restrict any use of the information to criminally investigate or prosecute any alcohol or drug abuse patient.[facility] AdministrationIn the event this information is protected by the Federal Confidentiality of Alcohol and Drug Abuse Patient Records regulations: The Federal rules restrict any use of the information to criminally investigate or prosecute any alcohol or drug abuse patient.[facility] AdministrationIn the event this information is protected by the Federal Confidentiality of Alcohol and Drug Abuse Patient Records regulations: The Federal rules restrict any use of the information to criminally investigate or prosecute any alcohol or drug abuse patient.[facility] AdministrationIn the event this information is protected by the Federal Confidentiality of Alcohol and Drug Abuse Patient Records regulations: The Federal rules restrict any use of the information to criminally investigate or prosecute any alcohol or drug abuse patient.[facility] AdministrationIn the event this information is protected by the Federal Confidentiality of Alcohol and Drug Abuse Patient Records regulations: The Federal rules restrict any use of the information to criminally investigate or prosecute any alcohol or drug abuse patient.[facility] AdministrationIn the event this information is protected by the Federal Confidentiality of Alcohol and Drug Abuse Patient Records regulations: The Federal rules restrict any use of the information to criminally investigate or prosecute any alcohol or drug abuse patient.[facility] Health AdministrationIn the event this information is protected by the Federal Confidentiality of Alcohol and Drug Abuse Patient Records regulations: The Federal rules restrict any use of the information to criminally investigate or prosecute any alcohol or drug abuse patient.[facility] Reason for Visit (unrecogniz ed section and content) Reason Comments Yearly Exam 07/2019 pap & hpv NEG Specialty Diagnoses / Procedures Referred By Julienne kearns Referred To Contact Diagnoses Sebaceous cyst SEBACEOUS CYST Procedures NM BX LOW LEG SOFT TISSUE,DEEP EXCISION OF RIGHT POSTERIOR KNEE MASS WITH COMPLEX CLOSURE 1 HOUR ([facility] Yamilex Acevedo MD [address] [facility] [address] [place] [address] [facility] [address] [place] [address] Referral ID Status Reason Start Date Expiration Date Visits Re quested Visits Authorized [id number] 1 1 Reason Comments Refill Request Reason Comments Yearly Exam Breast Problem Left breast pain on and off for a couple of months --last pap--07/2019--pap and hpv was neg Reason Comments Yearly Exam 08/2022 pap & hpv NEG Reason Comments Toe Pain Johanny Everettkev 34yo N ew Patient referred by Dr. Lala for Right great toe joint pain. Patient recently had [facility]. Toe spur and torn cartilage. Patient relates pain at a 7, worse after activities, certain shoes. Patient typically runs 2-3 days a week, 2-3 miles. SS 9 Scheduled Active and Recently Administ ered Medications (unrecognized section and content) Medication Order 01/01/2022 01/02/2022 01/03/2022 ceFAZolin (ANCEF) 2000 mg in dextrose 5 % 100 mL IVPB (COMPLETED) 2,000 mg, IntraVENous, POLITICAL DIRECTOR TO O.R., 1 dose, On Sat01/03/22 at [...] Medication Order 01/01/2022 01/02/2022 01/03/2022 lidocaine-EPINEPHrine 1 %-[id number] injection (CANCELED) PRN, Starting on Sat01/03/22 at 1116, Until Sat01/03/22 at 1148, Intra-op 1116 (Given - Provid er: Yamilex Acevedo MD - Comment: injected into op site) sodium chloride 0.9 % irrigation (CANCELED) CONTINUOUS PRN, Starting on Sat01/03/22 at 1119, Intra-op 1119 (New Bag - Prov ider: Yamilex Acevedo MD) Care Teams (unrecognized sec tion and content) Team Status: Active Member Role Status Dates Irina Jimenez DO Primary Care Provider Active Team Status: Inactive Member Role Status Dates Irina Jimenez DO Primary Care Provide r, Attending Provider Active Start: July 06, 2024 End: July 06, 2024 Rn Postpartum Relationship Specialty Start Date End Date Irina Jimenez DO [address] [place] [address] PCP - General Family Medicine 01/02/22 Team Status: Active Member Role Status Dates Elizabeth Gao APRN [address] FREIGHT-C Primary Care Provider Active Start: September 24, 2023 Lety Batista MD Attending Provider Active St art: September 24, 2023 Team Status: Inactive Member Role Status Dates Betzaida Ross APRN Attending Provider Active Start: October 16, 2023 End: October 16, 2023 Irina Jimenez DO Primary Care Provider Active S tart: October 16, 2023 End: October 16, 2023 Rn Postpartum Relationship Specialty Start Date End Date Irina Jimenez MD [address] [place] [address] PCP - General Family Medicine 09/28/24 Rn Postpartum Relationship Specialty Start Date End Date Irina Jimenez MD [address] [place] [address] PCP - General Family Medicine 09/28/24 Goals (unrecognized section and content) Goals may [...] BE BASED ON THE PRIMARY CLINICAL RECORDS. [employer] provides no warranty or guarantee of the accuracy or completeness of information in this document.
--- OUTSIDE RECORDS SUMMARY | 2024-11-08 09:46 | XMS_ITS | Encounter Summary ---
Author Organization [facility] Address [address] [place] [address] Care Team Providers Care Sex Therapist Name Role Phone Unavailable Primary Care Provider Unavailabl e Source Comments In the event this information is protected by the Federal Confidentiality of Alcohol and Drug AbusePatient Records regulations: The Federal rules restrict any use of the information to criminally investigate or prosecute any alcohol or drug abuse patient.[facility] Encounter Details Date Type Department Care Team (Late st Contact Info) Description 12/26/2023 Patient Msg Obstetrics/Gynecology [address] [place] [address] Provider, Ccf upcoming appt Social History Tobacco Use Types Packs/Day Years Used Date Smoking Tobacco: Never Smokeless Tobacco: Never Alcohol Use Standard Drinks/Week Comments Yes 0 (1 standard drink = 0.6 oz pur e alcohol) socially Overall Financial Resource Strain (CARDIA) Answe r Date Recorded How hard is it for you to pa y for the very basics like food, housing, medical care, and heating? Not hard at all 02/11/2020 Hunger Vital Sign Answer Date Recorded Within the past 12 months, y ou worried that your food would run out before you got the money to buy more. Never true 02/11/20 20 Within the past 12 months, t he food you bought just didn't last and you didn't have money to get more. Never true 02/11/2020 PRAPARE - Transportation Answer Date Re corded In the past 12 months, has l ack of transportation kept you from medical appointments or from getting medications? No 01/30 In the past 12 months, has l ack of transportation kept you from meetings, work, or from getting things needed for daily living? No 02/11/2020 Area Deprivation Index Answer Date Manoj rded National Score (1-100), lower number is lower ri sk 53 09/21/2022 State Score (1-10), lower number is lower risk 3 09/21/2022 Data from: https://www.neighborhoodatlas.[facility]/. Last address used for calculation [address] 09/21/2022 Comments No Sex and Gender Information Value Date Recorded Sex Assigned at Not on file Legal Sex Female 4:05 PM EDT Gender Identity Not on file Sexual Orientation Not on file documented as of this encounter Functional Status * Are you deaf or do you have serious difficulty hearing? Answer Date of Assessment Author No 02/12/2020 11:26 AM Vince Guallpa RN * Are you blind or do you have serious difficulty seeing, even when wearing glasses? Answer Date of Assessment Author No 02/12/2020 11:26 AM Vince Guallpa, THOMAS * Do you have serious difficulty walking or climbing stairs? Answer Date of Assessment Author No 02/12/2020 11:26 AM Vince Guallpa, THOMAS * Do you have difficulty dressing or bathing? Answer Date of Assessment Author No 02/12/2020 11:26 AM Vince Guallpa, RN * Because of a physical, mental, or emotional condition, do you have difficulty doing errands alone such as visiting a doctor's office or shopping? Answer Date of Assessment Author No 02/12/2020 11:26 AM Vince Guallpa, THOMAS documented as of this encounter Mental Status * Because of a physical, mental, or emotional condition, do you have serious difficulty concentrating, remembering, or making decisions? Answer Entry Date Author No 02/12/2020 11:26 AM Vince Guallpa, THOMAS documented in this encounter Plan of Treatment Upcoming Encounters Date Type Department Care Team (Late st Contact Info) Description 12/03/2024 3:30 PM EDT Office Visit OB/Gynecology [address] [address] Guillermina Raman APRN.DRAFTING DETAILER [address] [place], [place] [id number] Annual documented as of this encounter Visit Diagnoses Not on filedocumented in this encounter
--- OUTSIDE RECORDS SUMMARY | 2024-11-08 09:46 | XMS_ITS | Encounter Summary ---
Author Organization [facility] Address [address] [place] [address] Care Team Providers Care Director Of Alumni Relations Name Role Phone Colby Estrada MD Primary Care Provider [phone] Encounter Details Date Type Department Care Team (Late st Contact Info) Description 10/16/2023 Abstract [facility] [place] [facility] [address] [place] [id number] Victorina Luciano LPN [address] [id number] Social History Tobacco Use Types Packs/Day Years Used Date Smoking Tobacco: Never Assessed Comments Unknown Sex and Gender Information Value Date Recorded Sex Assigned at Not on file Legal Sex Female 8:05 PM EDT Gender Identity Not on file Sexual Orientation Not on file documented as of this encounter Plan of Treatment Not on file documented as of this encounter Visit Diagnoses Not on filedocumented in this encounter Care Teams Director Of Alumni Relations Relationship Specialty Start Date End Date Colby Estrada MD [address] [place] [address] [address] [place] [id number] PCP - General Family Medicine 09/28/24 documented as of this encounter
--- OUTSIDE RECORDS SUMMARY | 2024-11-08 09:46 | XMS_ITS | Encounter Summary ---
Author Organization [facility] Address [address] [place] [address] Care Team Providers Care Grapple Crew Leader Name Role Phone Unavailable Primary Care Provider Unavailabl e Source Comments In the event this information is protected by the Federal Confidentiality of Alcohol and Drug AbusePatient Records regulations: The Federal rules restrict any use of the information to criminally investigate or prosecute any alcohol or drug abuse patient.[facility] Encounter Details Date Type Department Care Team (Late st Contact Info) Description 01/14/2020 Patient Msg Obstetrics/Gynecolog y [address] [place], [place] [id number] Eilzabeth Ni, AS400 ADMINISTRATOR.EDUCATION [place] [address] [facility], [facility] [place] [address] RE: Appointment Cancellation Request Social History Tobacco Use Types Packs/Day Years Used Date Smoking Tobacco: Never Smokeless Tobacco: Never Alcohol Use Standard Drinks/Week Comments Not Currently 0 (1 standard drink = 0.6 oz pur e alcohol) Comments Yes Sex and Gender Information Value Date Recorded Sex Assigned at Not on file Legal Sex Female 4:05 PM EDT Gender Identity Not on file Sexual Orientation Not on file COVID-19 Exposure Response Date Recorded In the last month, have you been in contact with someone who was confirmed or suspected to have Coronavirus / COVID-19? No / Unsure 01/15/2020 2:59 PM EDT documented as of this encounter Functional Status * Are you deaf or do you have serious difficulty hearing? Answer Date of Assessment Author No 12/25/2019 2:16 PM EDT Harriet Ronquillo RN * Are you blind or do you have serious difficulty seeing, even when wearing glasses? Answer Date of Assessment Author No 12/25/2019 2:16 PM EDT Harriet Ronquillo RN * Do you have serious difficulty walking or climbing stairs? Answer Date of Assessment Author No 12/25/2019 2:16 PM EDT Harriet Ronquillo RN * Do you have difficulty dressing or bathing? Answer Date of Assessment Author No 12/25/2019 2:16 PM EDT Harriet Ronquillo RN * Because of a physical, mental, or emotional condition, do you have difficulty doing errands alone such as visiting a doctor's office or shopping? Answer Date of Assessment Author No 12/25/2019 2:16 PM EDT Harriet Ronquillo RN documented as of this encounter Mental Status * Because of a physical, mental, or emotional condition, do you have serious difficulty concentrating, remembering, or making decisions? Answer Entry Date Author No 12/25/2019 2:16 PM EDT Harriet Ronquillo RN documented in this encounter Plan of Treatment Upcoming Encounters Date Type Department Care Team (Late st Contact Info) Description 12/03/2024 3:30 PM EDT Office Visit OB/Gynecology [address] [address] Guillermina Raman, ROSY.EDUCATION DEAN [address] [facility] [place] [place] [address] Annual documented as of this encounter Visit Diagnoses Not on filedocumented in this encounter
--- OUTSIDE RECORDS SUMMARY | 2024-11-08 09:46 | XMS_ITS | Encounter Summary ---
Author Organization [facility] Address [address] [place] [address] Care Team Providers Care Metal Furnace Operator Name Role Phone Colby Estrada MD Primary Care Provider [phone] Encounter Details Date Type Department Care Team (Late st Contact Info) Description 02/25/2024 [facility] [address] [place] [address] Efraín Lala MD [address] [place] [address] [address] [place], [place] [id number] Social History Tobacco Use Types Packs/Day Years [...] on filedocumented in this encounter Care Teams Metal Furnace Operator Relationship Specialty Start Date End Date Colby Estrada MD [address] [place] [address] [place], [place] [phone] PCP - General Family Medicine 09/28/24 documented as of this encounter
--- OUTSIDE RECORDS SUMMARY | 2024-11-08 09:46 | XMS_ITS | Encounter Summary ---
Author Organization [facility] Address [address] [place] [address] Care Team Providers Care Aquarist Name Role Phone Colby Estrada MD Primary Care Provider [phone] Encounter Details Date Type Department Care Team (Late st Contact Info) Description 10/07/2023 Abstract [facility] [place] [facility] [address] [facility] [place] [address] Saad Riddle DO [address] [facility] [address] [place] [id number] Social History Tobacco Use Types Packs/Day Years [...] on filedocumented in this encounter Care Teams Aquarist Relationship Specialty Start Date End Date Colby Estrada MD [address] [place] [address] [address] [place], [place] [id number] PCP - General Family Medicine 09/28/24 documented as of this encounter
--- OUTSIDE RECORDS SUMMARY | 2024-11-08 09:46 | XMS_ITS | Clinical Summary ---
Author Organization [facility] Address [address] [place] [address] Care Team Providers Care Produce Manager Name Role Phone Colby Estrada MD Primary Care Provider [phone] Encounters Date Type Department Care Team Description 09/28/2024 3:30 PM EDT Office Visit [facility] [address] [facility] [place] [phone] Cyrus Gomes DPM Hallux limitus, right (Primary Dx); Bone spur of right foot; Other synovitis and tenosynovitis, right ankle and foot; Arthralgia of right foot; Equinus contracture of right ankle 09/28/2024 Bamboo flowsheet [facility] [address] [place] [phone] Cyrus Gomes DPM 09/28/2024 Travel 09/25/2024 Travel 09/21/2024 Travel from Last 3 Months Family History Medical History Relation Name Comments Cancer Father Pat Relation Name Status Comments Father Pat Alive Social History Tobacco Use Types Packs/Day Years Used Date Smoking Tobacco: Never Alcohol Use Standard Drinks/Week Comments Not Currently 2 (1 standard drink = 0.6 oz pur e alcohol) 1x weekly Comments Unknown Sex and Gender Information Value Date Recorded Sex Assigned at Not on file Legal Sex Female 8:05 PM EDT Gender Identity Not on file Sexual Orientation Not on file Last Filed Vital Signs Vital Sign Reading Time Taken Comments Blood Pressure 120/80 06/12/2022 12:00 PM EDT Pulse - - Temperature - - Respiratory Rate - - Oxygen Saturation - - Inhaled Oxygen Concentration - - Weight 74.8 kg (165 lb) 09/28/2024 3:49 PM EDT Height 172.7 cm (5' 8 ) 09/28/2024 3:49 PM EDT Body Mass Index 25.09 09/28/2024 3:49 PM EDT Plan of Treatment Not on file Insurance BCBS Care Teams Produce Manager Relationship Specialty Start Date End Date Colby Estrada MD [address] [place] [address] [place] [address] PCP - General Family Medicine 09/28/24
--- OUTSIDE RECORDS SUMMARY | 2024-11-08 09:46 | XMS_ITS | Clinical Summary ---
Author Organization [facility] Address [address] [place] [address] Care Team Providers Care Tamale Machine Feeder Name Role Phone Unavailable Primary Care Provider Unavailabl e Allergies No known active allergies Medications Drospirenone-Eth inyl Estradiol (CHER) 3-0.03 mg per tablet Take 1 tablet by mouth once daily. 84 tablet 3 11/28/2023 Active citalopram (CELEXA) 40 mg tablet take 1 tablet daily 90 tablet 3 12/05/2023 Active Active Problems Problem Noted Date Diagnosed Date Hypothyroidism, unspecified 09/01/2018 Epilepsy 09/01/2018 Irregular menstruation, unspecified 02/13/2018 Resolved Problems Problem Noted Date Diagnosed Date Resolved Date Lab test positive for detect ion of COVID-19 virus 10/30/2019 03/22/2020 Overview (11/24/2019): 10/25 Previous delivery a ffecting 07/30/2019 03/22/2020 Overview (11/24/2019): x2 Plan is for rpt at 37 weeks due to IUFD Hx of preeclampsia, prior pr egnancy, currently 07/30/2019 03/22/2020 Overview (07/30/2019): Low dose asa 12 weeks History of IUFD 07/30/2019 03/22/2020 Overview (07/30/2019): Abruption noted in op note. Normal eval after. Autopsy not done. MFM consult Immunizations Immunization Administration Dates Next Due tetanus diphtheria pertussis (Tdap) vaccine, age 7+ yr (ADACEL, BOOSTRIX) 01/01/2020 Family History Medical History Relation Comments Colon Cancer Father gonzales syndrome. she tested neg Prostate Cancer Father bi polar Mother Colon Cancer Paternal Grandfather Relation Status Comments Father Mother Paternal Grandfather Social History Tobacco Use Types Packs/Day Years Used Date Smoking Tobacco: Never Smokeless Tobacco: Never Tobacco Cessation:Counseling Given: Not Answered Alcohol Use Standard Drinks/Week Comments Yes 0 [...] is lower risk 3 09/21/2022 Data from: https://www.neighborhoodatlas.medicine.[facility].edu/. Last address used for calculation [address] 09/21/2022 Comments No Sex and Gender Information Value Date Recorded Sex Assigned at Not on file Legal Sex Female 4:05 PM EDT Gender Identity Not on file Sexual Orientation Not on file Last Filed Vital Signs Vital Sign Reading Time Taken Comments Blood Pressure 114/72 11/28/2023 9:21 AM EDT Pulse 68 02/12/2020 8:04 AM EST Temperature 37.1 C (98.8 F) 02/12/2020 8:04 AM EST Respiratory Rate 16 02/12/2020 8:04 AM EST Oxygen Saturation 100% 02/11/2020 8:21 AM EST Inhaled Oxygen Concentration - - Weight 76 kg (167 lb 8.8 oz) 11/28/2023 9:21 AM EDT Height 170.2 cm (5' 7 ) 11/28/2023 9:21 AM EDT Body Mass Index 26.24 11/28/2023 9:21 AM EDT Plan of Treatment Upcoming Encounters Date Type Department Care Team (Late st Contact Info) Description 12/03/2024 3:30 PM EDT Office Visit OB/Gynecology [address] [place] [address] Guillermina Raman, GELATIN DYNAMITE PACKING OPERATOR.COPPER TAPPER [address] [place], [place] [phone] Annual Health Maintenance Due Date Last Done Comments Annual PCP Team Chronic Dise ase Visit 2007 Anxiety Screening 2007 Depression Screening 2007 Hepatitis C Screening 2007 Hepatitis B Vaccine (1 of 3 - 19+ 3-dose series) 02/29/2008 Influenza Vaccine (#1) 2024 Cervical Cancer Screening 09/22/20272022, 09/21/2022, 07/30/2019, Additional history exists DTaP,Tdap,Td Vaccine (2 - Td or Tdap) 12/31/2029 01/01/2020 HIV Screening Completed 08/28/2019 Procedures Procedure Name Priority Date/Time Associated Diagnosis Comments PAP TEST Routine 09/21/2022 10:33 AM EDT Screening for cervical cancer Encounter for screening for human papillomavirus (HPV) HIV 1/2 COMBO WITH REFLEX TO DIFFERENTIATION Routine 08/28/2019 3:53 PM EDT 9 weeks gestation of from Last 3 Months or Most Recently Relevant to Health Maintenance Results * PAP TEST (09/21/2022 10:33 AM EDT) Case Report Gynecologic Cytology Report Case: [id number] Authorizing Provider: Angelica Elaine MD Collected: 09/21/2022 10:33 AM Ordering Location: Obstetrics/Gyneco logy Received: 09/21/2022 01:09 PM First Screen: DELVIS Winn ASCP Specimen: Pap Test, ThinPrep, Cervix 10/01/2022 11:49 AM EDT [facility] FINAL DIAGNOSIS A - Cervix Satisfactory for interpretation Negative for Intraepithelial lesion or malignancy. 10/01/2022 11:49 AM EDT [facility] at 1149 EDT LMP 08/25/2022 10/01/2022 11:49 AM EDT [facility] Pap Disclaimer The Pap Smear is a screening test for cervical cancer. False negative results occur with all screening tests, emphasizing the need for rescreening at recommended intervals, and clinical correlation. 10/01/2022 11:49 AM EDT [facility] PAP Broadcast Operations Engineer Comment This specimen has been analyzed by the ThinPrep Imaging System, an automated imaging and review system, which assists the laboratory in evaluating cells on ThinPrep Pap tests. Following automated imaging, selected bermudez from every slide are reviewed by a web offset press feeder. 10/01/2022 11:49 AM EDT [facility] Performing Lab Technical component, web offset press feeder screening performed at [facility], [facility] [place] [id number] CLIA# [id number] Diagnostic interpretation performed at [facility], [facility] [place] [id number] CLIA# [id number] Collar Trimmer: Alessio [place] M.D. 10/01/2022 11:49 AM EDT [facility] Clinical History Routine Exam 2022 11:49 AM EDT [facility] HPV Reflex Auto HPV 10/01/2022 11:49 AM EDT [facility] Cytology Interpretation Negative for Intraepithelial lesion or malignancy. 10/01/2022 11:49 AM EDT [facility] at 1149 EDT Sterile Fluid/Body Fluid CERVICAL / Unknown Non Blood / Unknown 09/21/2022 10:33 AM EDT 09/21/2022 1:09 PM EDT us Angelica Elaine MD CYTOLOGY Final Result Performing Organization Address [facility] Co de Phone Number [facility] [address] [facility] [address] [place] [address], [place] * HIV 1 2 COMBO(AG/AB),WITH REFLEX TO DIFFERENTIATION (08/28/2019 3:53 PM EDT) HIV 12 Combo (Ag/Ab) Non Reactive Non Reactive 08/29/2019 10:58 AM EDT [facility] HIV-1/2 AB Test Not Indicated 08/29/2019 10:58 AM EDT [facility] HIV Interpretation Negative 08/29/2019 10:58 AM EDT [facility] Comment: No evidence of HIV-1 or HIV-2 infection. Should recent infection be suspected, repeat testing may be considered 2-3 weeks after this draw. HIV Information: [place] Rev. Code 3701.243(E): This information has been disclosed to you from confidential records protected from disclosure by state law. You shall make no further disclosure of this information without the specific, written, and informed release of the individual to whom it pertains or as otherwise permitted by state law. A general authorization for the release of medical or other information is not sufficient for the purpose of the release of HIV test results or diagnoses. Blood specimen (specimen) BLOOD SPECIMEN / Unknown 08/28/2019 3:53 PM EDT 08/28/2019 3:55 PM EDT us Ayana Ly MD LABORATORY Final Result [facility] [address] [facility] [place] [address] [facility] [address] [place] [address] from Last 3 Months or Most Recently Relevant to Health Maintenance Insurance BLUE CARD PPO OOS
--- OUTSIDE RECORDS SUMMARY | 2024-11-08 09:46 | XMS_ITS | Encounter Summary ---
Author Organization [facility] Address [address] [place] [address] Care Team Providers Care Sales Attendant Name Role Phone Unavailable Primary Care Provider Unavailabl e Source Comments In the event this information is protected by the Federal Confidentiality of Alcohol and Drug AbusePatient Records regulations: The Federal rules restrict any use of the information to criminally investigate or prosecute any alcohol or drug abuse patient.[facility] Encounter Details Date Type Department Care Team (Late st Contact Info) Description 01/25/2020 Patient Msg Obstetrics/Gynecolog y [address] [place], [place] [id number] Elizabeth Ni, SECONDARY SPECIAL EDUCATION TEACHER.POTATO CHIP SORTER [address] [facility] [place] [address] RE: Appointment Cancellation Request Social History Tobacco [...] have Coronavirus / COVID-19? No / Unsure 01/22/2020 8:10 AM EDT documented as of this encounter Functional [...] PM EDT Office Visit OB/Gynecology [address] [place] [address] Guillermina Raman, ROSY.POTATO CHIP SORTER [address] [facility] [place] [address] Annual documented as of this encounter Visit Diagnoses Not on filedocumented in this encounter
--- OUTSIDE RECORDS SUMMARY | 2024-11-08 09:46 | XMS_ITS | Encounter Summary ---
Author Organization [facility] Address [address] [place] [address] Care Team Providers Care Blade Worker Name Role Phone Unavailable Primary Care Provider Unavailabl e Source Comments In the event this information is protected by the Federal Confidentiality of Alcohol and Drug AbusePatient Records regulations: The Federal rules restrict any use of the information to criminally investigate or prosecute any alcohol or drug abuse patient.[facility] Encounter Details Date Type Department Care Team (Late st Contact Info) Description 01/14/2020 Patient Msg Obstetrics/Gynecolog y [address] [place] [address] Provider, Ccf RE: Appointment Cancellation Request Social History Tobacco [...] PM EDT Office Visit OB/Gynecology [address] [place] [address] Guillermina Raman, PERL PROGRAMMER.CRUSHER TENDER [address] [facility] [place] [address] Annual documented as of this encounter Visit Diagnoses Not on filedocumented in this encounter
--- OUTSIDE RECORDS SUMMARY | 2024-11-08 09:46 | XMS_ITS | Encounter Summary ---
Author Organization [facility] Address [address] [place] [address] Care Team Providers Care Glove Operator Name Role Phone Unavailable Primary Care Provider Unavailabl e Source Comments In the event this information is protected by the Federal Confidentiality of Alcohol and Drug AbusePatient Records regulations: The Federal rules restrict any use of the information to criminally investigate or prosecute any alcohol or drug abuse patient.[facility] Encounter Details Date Type Department Care Team (Late st Contact Info) Description 01/14/2020 Patient Msg Obstetrics/Gynecolog y [address] [place] [address] [place] [address] [place] [address] RE: Appointment Cancellation Request Social History Tobacco [...] PM EDT Office Visit OB/Gynecology [address] [place] [address] Guillermina Raman APRN.CAFETERIA SUPERVISOR [address] [facility] [place] [address] Annual documented as of this encounter Visit Diagnoses Not on filedocumented in this encounter
--- OUTSIDE RECORDS SUMMARY | 2024-11-08 09:46 | XMS_ITS | Encounter Summary ---
Author Organization [facility] Address [address] [place] [address] Care Team Providers Care Rn Cardiac Rehab Name Role Phone Colby Estrada MD Primary Care Provider [phone] Encounter Details Date Type Department Care Team (Late st Contact Info) Description 04/03/2024 [facility] [address] [place] [address] Efraín Lala MD [address] [place] [address] [address] [place], [place] [id number] Social History Tobacco Use Types Packs/Day Years [...] on filedocumented in this encounter Care Teams Rn Cardiac Rehab Relationship Specialty Start Date End Date Colby Estrada MD [address] [place] [address] [place]nie [place], [place] [phone] PCP - General Family Medicine 09/28/24 documented as of this encounter
--- OUTSIDE RECORDS SUMMARY | 2024-11-08 09:46 | XMS_ITS | Encounter Summary ---
Author Organization [facility] Address [address] [place] [address] Care Team Providers Care Forest Products Teacher Name Role Phone Unavailable Primary Care Provider Unavailabl e Source Comments In the event this information is protected by the Federal Confidentiality of Alcohol and Drug AbusePatient Records regulations: The Federal rules restrict any use of the information to criminally investigate or prosecute any alcohol or drug abuse patient.[facility] Encounter Details Date Type Department Care Team (Late st Contact Info) Description 01/14/2020 Patient Msg Obstetrics/Gynecolog y [address] [place] [address] [place] [address] [place] [address] RE: Appointment Cancellation Request Social History Tobacco [...] Assessment Author No 12/25/2019 2:16 PM EDT Harreit Ronquillo RN * Are you blind or [...] PM EDT Office Visit OB/Gynecology [address] [address] Guillermina Raman APRN.CHIEF OF STAFF [address] [facility] [address] Annual documented as of this encounter Visit Diagnoses Not on filedocumented in this encounter
--- OUTSIDE RECORDS SUMMARY | 2024-11-08 09:46 | XMS_ITS | Clinical Summary ---
Author Organization [facility] Address [id number] [address] [place] [address] Care Team Providers Care Fuel Storage Technician Name Role Phone Provider, Conversion MD Primary Care Provider Un available Allergies No known active allergies Medications citalopram (CeleXA) 20 mg tabletIndicatio ns:anxiety with depression,neur ogenic syncope Take 20 mg by mouth daily Indications: Anxiety with Depression, neurogenic syncope. Active guq10-uaxc-expf c acid 29 mg iron- 1 mg tablet,chewable Chew 1 tablet and swallow daily. Active amoxicillin (AMOXIL) 500 mg capsuleIndicati ons:root canal that was scheduled for today. Take 500 mg by mouth 3 (three) times a day Indications: root canal that was scheduled for today.. Active nitrofurantoin, macrocrystal-mo nohydrate, (MACROBID) 100 mg capsule Take 100 mg by mouth 2 (two) times a day. Active Active Problems Problem Noted Date Diagnosed Date Preeclampsia 04/04/2016 Family History Medical History Relation Name Comments Colon cancer Father Stroke Maternal Grandmother Thyroid disease Maternal Grandmother Arthritis Mother Bipolar disorder Mother Depression Mother Kidney disease Mother Seizures Mother Colon cancer Paternal Grandfather Relation Name Status Comments Father Maternal Grandfather Maternal Grandmother Mother Paternal Grandfather Social History Tobacco Use Types Packs/Day Years Used Date Smoking Tobacco: Never Smokeless Tobacco: Never Alcohol Use Standard Drinks/Week Comments No 0 (1 standard drink = 0.6 oz pur e alcohol) Childcare Answer Date Recorded Childcare Unknown 09/10/2018 Employment Answer Date Recorded Employment Unknown 09/10/2018 Purpose - Life Answer Date Recorded Purpose and direction in life Unknown Comments No Sex and Gender Information Value Date Recorded Sex Assigned at Not on file Legal Sex Female 3:51 PM EDT Gender Identity Not on file Sexual Orientation Not on file Last Filed Vital Signs Vital Sign Reading Time Taken Comments Blood Pressure 124/74 02/07/2018 10:13 AM EST Pulse 80 02/07/2018 10:13 AM EST Temperature 36.5 C (97.7 F) 04/05/2016 7:00 AM EST Respiratory Rate 18 04/05/2016 7:00 AM EST Oxygen Saturation - - Inhaled Oxygen Concentration - - Weight 75.8 kg (167 lb 1.7 oz) 02/07/2018 10:13 AM EST Height 172.7 cm (5' 8 ) 04/04/2016 12:48 PM EST Body Mass Index 25.41 04/04/2016 12:48 PM EST Plan of Treatment Health Maintenance Due Date Last Done Comments Depression Screening 2001 Tobacco Screening 2001 Adult BMI Screening 2007 DTaP,Tdap and Td Vaccines (1 - Tdap) 02/29/2008 Pap Smear 2010 Influenza Vaccine 11/30/2024 Medical Devices Not on file Insurance Care Teams Fuel Storage Technician Relationship Specialty Start Date End Date Provider, MD Jessica PCP - General 12/31/15
--- OUTSIDE RECORDS SUMMARY | 2024-11-08 09:46 | XMS_ITS | Patient Health Record ---
Author Organization [facility] [place] Address [address] [place] [address] Care Team Providers Care Operating Room Nurse Name Role Phone Irina Jimenez DO Primary Care Provider Unavailab Milton Bailey Unavailable [phone] Allergies No Known Allergies Results Component Value Reference Range Notes XR Foot RT (3 views) * Reviewed date:03/30/2024 01:24:51 PM Interpretation: Performing Lab: Notes/Report: CT FOOT RT WO CON (Not yet r eviewed by provider) Interpretation: Performing Lab: Notes/Report: Source Facility: [place] [address] CT Scan Report Signed Patient: JOHANNY PÉREZ MR#: [id number] : 1990 Acct:[id number] Age/Sex: 34 / F ADM Date: 04/03/24 Loc: CT Attending Dr: Milton Lala D.P.M. Ordering Physician: Milton Lala D.P.M. Date of Service: 04/03/24 Procedure(s): CT foot RT wo con Accession Number(s): [id number] cc: IRINA JIMENEZ [place] [address] Patient Name: JOHANNY PÉREZ MRN: [id number] date: 1990 Sex: F Assigned Patient Location: CT Current Patient Location: CT Accession/Order Number: [id number] Exam Date: 04/03/2024 08:05 Report Date: 04/03/2024 14:13 At the request of: MILTON LALA Procedure: CT foot RT wo con EXAMINATION: CT foot RT wo con HISTORY: Hallux Rigidus COMPARISON: No relevant comparison available. TECHNIQUE: Multi-planar CT images were created without IV contrast. Dose reduction techniques were achieved by using automated exposure control and/or adjustment of mA and/or kV according to patient size and/or use of iterative reconstruction technique. FINDINGS: BONES: Small bone fragment identified along the lateral base of the first proximal phalanx likely representing remote injuries. No definite acute fracture or dislocation. No significant degenerative change SOFT TISSUES: Negative. No visible soft tissue swelling. EFFUSION: None visible. OTHER: Negative. CT/CT foot RT wo con IMPRESSION: No acute abnormality and no significant degenerative changes Electronically authenticated by: IRINA MAXWELL Date: 04/03/2024 14:13 Dictated By: Irina Maxwell M.D. Signed By: 04/03/24 1416 DD/ 1413 TD/TT: Turbine Assembler: [place] [id number] CT Scan Report Signed Patient: BECK PÉREZ MR#: [id number] : 1990 Acct:[id number] Age/Sex: 34 / F ADM Date: 04/03/24 Loc: CT Attending Dr: Milton Lala D.P.M. Ordering Physician: Milton Lala D.P.M. Date of Service: 04/03/24 Procedure(s): CT foot RT wo con Accession Number(s): [id number] cc: IRINA JIMENEZ [place] [id number] Patient Name: JOHANNY PÉREZ MRN: [id number] date: 1990 Sex: F Assigned Patient Location: CT Current Patient Location: CT Accession/Order Numb er: [id number] Exam Date: 04/03/2024 08:05 Report Date: 04/03/2024 14:13 At the request of: MILTON LALA Procedure: CT foot RT wo con EXAMINATION: CT foot RT wo con HISTORY: Hallux Rigidus COMPARISON: No relev ant comparison available. TECHNIQUE: Multi-castro conor CT images were created without IV contrast. Dose reduction techniques were achieved by using automated exposure control and/or adjustment of mA and /or kV according to patient size and/or use of iterative reconstruction technique. FINDINGS: BONES: Small bone fr agment identified along the lateral base of the first proximal phalanx lik kerwin representing remote injuries. No definite acute fracture or dislocat ion. No significant degenerative change SOFT TISSUES: Negati ve. No visible soft tissue swelling. EFFUSION: None visible. OTHER: Negative. C T/CT foot RT wo con IMPRESSION: No acute abnormality and no significant degenerative changes Electronically authe nticated by: IRINA MAXWELL Date: 04/03/2024 14:13 Dictated By: Irina Maxwell M.D. Signed By: 04/03/24 1416 DD/ 12 TD/TT: Turbine Assembler: XR foot RT min 3V (Not yet r eviewed by provider) Interpretation: Performing Lab: Notes/Report: Source Facility: [place] [address] XRay Report Signed Patient: JOHANNY PÉREZ MR#: [id number] : 1990 Acct:[id number] Age/Sex: 33 / F ADM Date: 02/25/24 Loc: RAD Attending Dr: Milton Lala D.P.M. Ordering Physician: Milton Lala D.P.M. Date of Service: 02/25/24 Procedure(s): XR foot RT min 3V Accession Number(s): [id number] cc: IRINA JIMENEZ; Milton Lala D.P.M. The [place] [address] Patient Name: JOHANNY ÉPREZ MRN: [id number] date: 1990 Sex: F Assigned Patient Location: [facility] Current Patient Location: Accession/Order Number: [id number] Exam Date: 02/25/2024 14:38 Report Date: 02/29/2024 08:55 At the request of: MILTON LALA Procedure: XR foot RT min 3V PROCEDURE: XR foot RT min 3V HISTORY: Right Foot Pain ; pain since injury 10 years ago; first metatarsophalangeal joint pain COMPARISON: None. FINDINGS: BONES:Mild degenerative changes the first metatarsophalangeal joint. Tiny ossification medial to the first metatarsophalangeal joint favoring sequela of remote injury. SOFT TISSUES:No visible soft tissue swelling. EFFUSION:None visible. OTHER: Negative. XR/XR foot RT min 3V IMPRESSION: 1. No acute bone abnormality. 2. Mild degenerative changes of the first metatarsophalangeal joint. Electronically authenticated by: MARKY ZHU Date: 02/29/2024 08:55 Dictated By: Marky Zhu M.D. Signed By: 02/29/24857 DD/ 4 TD/TT: Turbine Assembler: [place] [address] XRay Report Signed Patient: BECK PÉREZ MR#: [id number] : 1990 Acct:[id number] Age/Sex: 33 / F ADM Date: 02/25/24 Loc: RAD Attending Dr: Milton Lala D.P.M. Ordering Physician: Milton Lala D.P.M. Date of Service: 02/25/24 Procedure(s): XR foot RT min 3V Accession Number(s): [id number] cc: IRINA JIMENEZ; Milton Lala D.P.M. The [place] [id number] Patient Name: JOHANNY PÉREZ MRN: [id number] date: 1990 Sex: F Assigned Patient Location: RAD Current Patient Location: Accession/Order Numb er: [id number] Exam Date: 14:38 Report Date: 02/29/2024 08:55 At the request of: MILTON LALA Procedure: XR foot RT min 3V PROCEDURE: XR foot RT min 3V HISTORY: Right Foot Pain ; pain since injury 10 years ago; first metatarsophalangeal joint pain COMPARISON: None. FINDINGS: BONES:Mild degenerat quang changes the first metatarsophalangeal joint. Tiny ossification medial to the first metatarsophalangeal joint favoring sequela of remote injury. SOFT TISSUES:No visi ble soft tissue swelling. EFFUSION:None visible. OTHER: Negative. X R/XR foot RT min 3V IMPRESSION: 1. No acute bone abnormality. 2. Mild degenerative changes of the first metatarsophalangeal joint. Electronically authe nticated by: MARKY ZHU Date: 02/29/2024 08:55 Dictated By: Marky Zhu M.D. Signed By: 02/29/24857 DD/ 4 TD/TT: Turbine Assembler: Reason For Referral No Information Medications Medication SIG (Take, Route, Fr equency, [...] (Standard) Question Answer Notes Tobacco use: Nonsmoker Problems Problem Type SNOMED Code ICD Code Onset Dates Problem Status W/U Status Risk Notes Problem [id number] Hallux rigidus, right foot (M20.21) Active confirmed Vital Signs Heart Rate 72 /min 04/08/2024 Temperature 96.3 degrees Fahrenheit 04/08/2024 Respiratory Rate 18 /min 04/08/2024 Oximetry 99 % 04/08/2024 Encounters Encounter Location Date Provider Diagnosis [facility] ([facility]) [address] [place] [address] [place] [address] 02/25/2024 Peter Highlander Hallux rigidus, righ t foot M20.21 ; 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 and Pain in right foot M79.671 [facility] ([facility]) [address] [place] [address] [place] [address] 04/08/2024 Peter Highlander Hallux rigidus, righ t foot M20.21 and 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 [facility] ([facility]) [address] [place] [address] [place] [address] 02/26/2024 [facility] ([facility]) [address] [place] [address] 03/16/2024 [facility] ([facility]) [address] [place] [address] 03/17/2024 [facility] ([facility]) [address] [place] [address] 03/30/2024 [facility] ([facility]) [address] [place] [address] [place] [address] 04/02/2024 [facility] Assessments Encounter Date Diagnosis (ICD Code) Assessment Notes Treatment Notes Treatment Clinical Notes Section Notes 02/25/2024 Hallux rigidus, right foot (ICD-10 - M20.21) Patient was seen and evaluated. Patient education provided and all questions answered. X-rays and clinical findings were discussed. I discussed the potential risks and benefits of surgical versus nonsurgical treatment specifically discussing first MPJ fusion versus cheilectomy.Patie nt may have an osteochondral defect from this injury that was sustained several years ago and an MRI or CT scan may be necessary to delineate especially if she would ever want cheilectomy.After long discussion patient would like to continue with nonsurgical treatment I recommended shoe modification specifically with rigid shank. I also recommended OTC orthotics and a handout was provided. Meloxicam was also prescribed. Patient will attempt these for the next 2 to 3 months and call for reappointment 02/25/2024 Other specified acquired deformities of musculoskeletal system (ICD-10 - M95.8) 04/08/2024 Hallux rigidus, right foot (ICD-10 - [...] weeks Patient will be: outpatient postoperatively Proposed anesthesia:Braeden l: MAC Proposed implants: none 04/08/2024 Other specified acquired deformities of musculoskeletal system (ICD-10 - M95.8) 02/25/2024 Pain in right foot (ICD-10 - M79.671) Plan Of Treatment Pending Test Test Name Order Date CT Foot RT w/o contrast * (Optional 3D R endering) 03/17/2024 LAB TESTING 09/24/2023 LAB TESTING 09/24/2023 CT FOOT RT WO CON 04/03/2024 XR foot RT min 3V 02/29/2024 Beta-2 Glycoprotein I Ab,G,A,M 4 Insurance Providers Payer Name Payer Address Payer Phone Subscriber Number Group Number Insured Name Patient Relationship to Insured Coverage Start Date Coverage End Date [employer]AV[employer] PHILLIPS [address] [place] [address] [id number] Tod Pérez Spouse - patient is the spouse of the insured Medical (General) History Medical History History ICD Code hypothyroid issues Surgical History Surgery Date(Month/Year) c section 04/18/2016 c- section 07/29/2018 c- section [id number]
--- NOTE | 2024-11-08 09:53 | XR_ITS ---
The [address] [address] Patient Name: JAMES VILLEGAS MRN: [id number] date: 1990 Sex: F Assigned Patient Location: ED.MAIN Current Patient Location: ED.MAIN Accession/Order Number: [id number] Exam Date: 11/08/2024 10:16 Report Date: 11/08/2024 10:19 At the request of: NIRMALA CONNELL MD Procedure: XR foot RT min 3V RIGHT ANKLE - 3 views right foot 3 views CLINICAL HISTORY: Fall. Pain along metatarsals. COMPARISON: None FINDINGS: Right ankle: No focal soft tissue abnormality. Ankle mortise appears intact without acute bony process. Nonaggressive appearing sclerosis is seen along the medial aspect of the distal tibia. Right foot: Mild soft tissue swelling. There is a questionable chip fracture along the cuboid as seen on the oblique view. Joint spaces appear maintained. No bony erosions. XR/XR foot RT min 3V IMPRESSION: SOFT TISSUE SWELLING WITH QUESTIONABLE CHIP FRACTURE ALONG THE CUBOID BEST SEEN ON THE OBLIQUE VIEW OF THE RIGHT FOOT. Impression dictated by: Edgard Stevenson Jr., D.O. 11/08/2024 10:19 AM Dictation Location: [place] [address] Electronically authenticated by: [id number] Y Date: 11/08/2024 10:19
--- NOTE | 2024-11-08 09:53 | ED_ITS ---
HPI HPI - Extremity Injury (Lower) General Chief Complaint: Extremity Injury, Lower Stated Complaint: lower extremity injury Time Seen by Provider: 11/08/24 09:49 Source: patient Mode of arrival: Wheelchair History of Present Illness HPI Narrative: The patient is coming to the ER after she fell off the porch when she is cleaning it, mentioned that she fell forward hitting her left knee as well as feeling a pop in her right foot, patient has been having pain when she puts weight on her right foot since then There was no head injury no other injuries as well Related Data Home Medications ?Medication ?Instructions ?Recorded ?Confirmed citalopram 10 mg tablet mg 11/08/24 drospirenone 3 mg-ethinyl tab 11/08/24 estradiol 0.03 mg tablet (Kierra) Previous Rx's ?Medication ?Instructions ?Recorded diclofenac sodium 75 mg 75 mg PO BID PRN pain #20 ta bs 11/08/24 tablet,delayed release Allergies Allergy/AdvReac Type Severity Reaction Status Date / Time No Known Drug Allergies Allergy Verified 11/08/24 09:45 Opioid HPI Opioid Management Most Recent Pain and Opioid Data: Last MAY Pain Assessment Today, 10:06 Review of Systems ROS Status of ROS 10 or more systems reviewed and unremark able except as noted in history and below PFSH PFSH Social History Little interest or pleasure in doing things: not at all Feeling down, depressed, or hopeless: not at all Exam Narrative Exam Narrative: Nurses notes and vital signs reviewed and patient is not hypoxic. Lower extremity exam: There is abrasion to the anterior of the left knee pulmonary movement and no other pathology detected Right foot examination showed that the patient have tenderness upon palpation of the lateral aspect of the foot with no ecchymosis but there is mild erythema there is no tenderness upon palpation of the medial lateral malleolus except mildly General: Well-appearing and in no apparent distress. Skin: Warm, dry, no pallor noted. Cardiovascular: Regular Rate and Rhythm without murmur, gallop or rub. Respiratory: No accessory muscle use or respiratory distress. Lungs are clear to auscultation, no wheezing, rales or rhonchi Chest Wall: no tenderness Back: No midline thoracic or lumbar vertebral tenderness. No CVA tenderness GI: Abdomen is soft, non-distended. Normal bowel sounds. No masses appreciated. No tenderness to palpation. No rebound, guarding, or rigidity noted. Neurological: A&O x4. No cranial nerve dysfunction observed. Constitutional Vital Signs, click to edit/add: Last Vital Signs Temp 98 F 11/08/24 09:43 Pulse 60 11/08/24 09:43 Resp 16 11/08/24 09:43 BP 122/77 11/08/24 09:43 Pulse Ox 100 11/08/24 09:43 O2 Del Method Room Air 11/08/24 09:43 Course Vital Signs Vital signs: Vital Signs Temperature 98 F 11/08/24 09:43 Pulse Rate 60 11/08/24 09:43 Respiratory Rate 16 11/08/24 09:43 Blood Pressure 122/77 11/08/24 09:43 Pulse Oximetry 100 11/08/24 09:43 Oxygen Delivery Method Room Air 11/08/24 09:43 Temperature 98 F 11/08/24 09:43 Pulse Rate 60 11/08/24 09:43 Respiratory Rate 16 11/08/24 09:43 Blood Pressure 122/77 11/08/24 09:43 Pulse Oximetry 100 11/08/24 09:43 Oxygen Delivery Method Room Air 11/08/24 09:43 MDM - Extremity Injury (Lower) MDM Narrative Medical decision making narrative: The patient x-ray shows a questionable cuboid chip fracture although compared to the patient CAT scan from before it does not seem that the patient have any fracture but I did discuss her case with Dr. Kulkarni and orthopedic service and he agreed that the patient with the walking boot and crutches she can follow-up with her orthopedic or podiatry as outpatient Patient provided with the report for the x-ray in addition to walking boot and crutches she is to rest and elevate her right foot until she is evaluated by podiatry The patient is to follow up with primary care physician in next 2-3 days or to return to the emergency department should any of the signs or symptoms worsen or new symptoms develop. The patient agrees with the following Diagnosis and Treat ment plan and the patient will be discharged home. Discharge Plan Discharge Chief Complaint: Extremity Injury, Lower Clinical Impression: Cuboid fracture, Foot pain Patient Disposition: Home, Self-Care Time of Disposition Decision: 12:05 Condition: Good Prescriptions / Home Meds: New diclofenac sodium 75 mg tablet,delayed release (DR/EC) 75 mg PO BID PRN (Reason: pain) Qty: 20 0RF No Action citalopram 10 mg tablet drospirenone-ethinyl estradiol [Kierra] 3-0.03 mg tablet Print Language: Icelandic Instructions: Crutch Instructions (ED), Foot Fracture in Adults (ED) Referrals: JEFF KULKARNI [Physician, Orthopedics] - 1 week IRINA JIMENEZ [Primary Care Provider, Family Practice] - 1 week Discharge Date/Time: 11/08/24 12:28
--- NOTE | 2024-11-08 09:53 | XR_ITS ---
The [address] [address] Patient Name: JAMES VILLEGAS MRN: [id number] date: 1990 Sex: F Assigned Patient Location: ED.MAIN Current Patient Location: ED.MAIN Accession/Order Number: [id number] Exam Date: 11/08/2024 10:16 Report Date: 11/08/2024 10:19 At the request of: NIRMALA CONNELL MD Procedure: XR foot RT min 3V RIGHT ANKLE - 3 views right foot 3 views CLINICAL HISTORY: Fall. Pain along metatarsals. COMPARISON: None FINDINGS: Right ankle: No focal soft tissue abnormality. Ankle mortise appears intact without acute bony process. Nonaggressive appearing sclerosis is seen along the medial aspect of the distal tibia. Right foot: Mild soft tissue swelling. There is a questionable chip fracture along the cuboid as seen on the oblique view. Joint spaces appear maintained. No bony erosions. XR/XR ankle RT min 3V IMPRESSION: SOFT TISSUE SWELLING WITH QUESTIONABLE CHIP FRACTURE ALONG THE CUBOID BEST SEEN ON THE OBLIQUE VIEW OF THE RIGHT FOOT. Impression dictated by: Edgard Stevenson Jr., D.O. 11/08/2024 10:19 AM Dictation Location: [place] [address] Electronically authenticated by: [id number] Y Date: 11/08/2024 10:19
[2024-11-08] MEDS: KETOROLAC TROMETHAMINE 30 MG/ML VIAL IM (10:06)
== END 2024-11-08 12:28 | disposition home or self-care (01) ==
PROVIDERS: Emergency Provider Emergency Medicine; PCP Family Medicine
DX: S92.211A Displaced fracture of cuboid bone of right foot, initial encounter for closed fracture (principal); M79.671 Pain in right foot; M25.562 Pain in left knee; W17.89XA Other fall from one level to another, initial encounter; Y93.H9 Activity, other involving exterior property and land maintenance, building and construction
CPT/HCPCS: 73610; 73630; 96372; 99285; J1885

== ENCOUNTER 2024-12-24 09:03 | Outpatient (RCR) | payer BC, SELFPAY | END 2025-02-05 08:17 | disposition home or self-care (01) | LOC: PT 09:03 | PROVIDERS: PCP Family Medicine; Visit Provider Podiatrist Foot & Ankle Surgery | DX: S93.491D Sprain of other ligament of right ankle, subsequent encounter (principal); R29.898 Other symptoms and signs involving the musculoskeletal system; R26.2 Difficulty in walking, not elsewhere classified; M25.371 Other instability, right ankle | CPT/HCPCS: 97110; 97112; 97162 ==